=== PATIENT | female | born 1990 | race Caucasian/White ===

== ENCOUNTER 2019-05-19 18:30 | Emergency (ER) | payer BC, SELFPAY ==
[2019-05-19] VITALS (31 sets, daily range): BP systolic 106–135; BP diastolic 52–90; PULSE 57–95; RESP 11–23; TEMP 37.1; O2SAT 96–100
--- NOTE | 2019-05-19 19:22 | ED.GENADUL_ITS ---
Discharge Plan Discharge Details Chief Complaint: Dizzy/Sync Primary Care Provider: Angelina Chris ED Provider: Prema Marcano Home Meds and New Rx's Prescriptions: No Action acetaminophen [Tylenol] 325 MG tablet 325 - 650 mg PO PRN RF: 0 mirtazapine 7.5 MG tablet 15 mg PO HS RF: 0 esomeprazole magnesium [Nexium] 40 mg Capsule,Delayed Release(Dr/Ec) 40 mg PO DAILY RF: 0 cholecalciferol (vitamin D3) [Vitamin D3] 400 unit Tablet,Chewable 400 unit PO DAILY RF: 0 lorazepam [Ativan] 0.5 mg Tablet 0.5 mg PO BID PRNRF: 0 Medical Decision Making April Chavira is a 28-year-old woman with a history of GERD, anxiety, vertigo, migraines who presented to the emergency department with episode of lightheadedness accompanied by nausea and palpitations while sitting in her car in the setting of being currently treated with antibiotics as an outpatient for pneumonia. On exam patient is well and nontoxic appearing. Benign cardiac exam. Pulmonary exam shows bilateral wheeze in the lower lobes that resolved after coughing. Nonfocal neuro exam. Concern for arrhythmia versus dehydration versus metabolic/lyte derangement versus other. Doubt PE, ACS. Exam/history is not consistent with CVA, meningitis, sepsis, acute aortic pathology. Plan for EKG, chest x-ray, screening labs, IV fluid hydration, telemetry. Will monitor and reassess. Medical Records Medical records reviewed: Yes I reviewed the patient's medical records. Imaging Data Radiologic Study: Attestation: I personally reviewed and interpreted this imaging study as follows: Radiologist's impression: EXAM: XR Chest, 2 Views EXAM DATE/TIME: 05/19/2019 7:17 PM CLINICAL HISTORY: 28 years old, female; Other: Dizzy, weak, nausea; Patient HX: Near syncope episode, weak, dizzy, nausea, recent pneumonia TECHNIQUE: Imaging protocol: XR of the chest, 2 views. COMPARISON: CR CHEST 2 VIEWS PA,LAT 07/22/2017 11:38 PM FINDINGS: Lungs: Unremarkable. No consolidation. Pleural space: Unremarkable. No pleural effusion. No pneumothorax. Heart/Mediastinum: Unremarkable. No cardiomegaly. Bones/joints: Unremarkable. IMPRESSION: No acute findings. Lab Data Lab results reviewed: Yes I reviewed the patient's lab results. Laboratory Tests Range/Units 05/19/19 05/19/19 05/19/19 19:25 19:30 19:30 WBC (4.4-10.8) k/cumm 9.28 RBC (4.00-5.20) m/cumm 4.59 Hgb (12.0-15.5) g/dL 13.4 Hct (36.0-46.0) % 38.6 MCV (80-95) fL 84.1 MCH (27.0-33.0) pg 29.2 MCHC (32.0-36.0) g/dL 34.7 RDW (11.7-14.6) % 13.3 Plt Count (130-400) x1000/uL 396 MPV (8.0-11.0) fL 10.0 Immature Gran % 0.1 Neutrophils % 56.2 Lymphocytes % 35.0 Monocytes % 5.8 Eosinophils % 2.4 Basophils % 0.5 Absolute Neutrophils (1.2-6.7) k/cumm 5.21 Absolute Lymphocytes (1.2-3.4) k/cumm 3.25 Absolute Monocytes (0.11-0.7) k/cumm 0.54 Absolute Eosinophils (0.0-0.7) k/cumm 0.22 Absolute Basophils (0.0-0.2) k/cumm 0.05 D-Dimer (<500) ng/mlFEU Sodium (136-145) mmol/L 142 Potassium (3.5-5.1) mmol/L 3.5 Chloride (98-107) mmol/L 105 Carbon Dioxide (21.0-32.0) mmol/L 25.3 Anion Gap (3-11) mmol/L 11.7 H BUN (7-18) mg/dL 7 Creatinine (0.55-1.02) mg/dL 0.74 Estimated GFR/1.73 m2 (mL/min/1.73m2) >= 60.00 Glucose (70-100) mg/dL 89 Calcium (8.5-10.1) mg/dL 9.4 Total Bilirubin (0.2-1.0) mg/dL 0.3 AST (15-37) U/L 10 L ALT (12-78) U/L 27 Alkaline Phosphatase (46-116) U/L 79 Troponin I (0.00-0.06) ng/mL Total Protein (6.4-8.2) g/dL 7.3 Albumin (3.4-5.0) g/dL 4.0 TSH (0.358-3.74) uIU/mL 1.48 Urine Color (Yellow) Yellow Urine Clarity (Clear) Clear Urine pH (5-8) 7.0 Ur Specific [place] (1.005-1.025) 1.010 Urine Protein (Negative) mg/dL Negative Urine Ketones (Negative) mg/dL Negative Urine Blood (Negative) Large H Urine Nitrite (Negative) Negative Urine Bilirubin (Negative) Negative Urine Urobilinogen (Up TO 0.2) EU/dL 0.2 Ur Leukocyte Esterase (Negative) Negative Urine RBC (0-2) 5-10 H Urine WBC (0-5) HPF Negative Ur Epithelial Cells (Negative) HPF Rare Urine Crystals (Negative) HPF Negative Urine Bacteria (Negative) HPF Negative Urine Casts (Negative) LPF Negative Urine Mucus (Negative) Negative Urine Other (Negative) Negative Ur Culture Indicated? No Urine Glucose (Negative) mg/dL Negative Range/Units 05/19/19 05/19/19 19:30 19:30 WBC (4.4-10.8) k/cumm RBC (4.00-5.20) m/cumm Hgb (12.0-15.5) g/dL Hct (36.0-46.0) % MCV (80-95) fL MCH (27.0-33.0) pg MCHC (32.0-36.0) g/dL RDW (11.7-14.6) % Plt Count (130-400) x1000/uL MPV (8.0-11.0) fL Immature Gran % Neutrophils % Lymphocytes % Monocytes % Eosinophils % Basophils % Absolute Neutrophils (1.2-6.7) k/cumm Absolute Lymphocytes (1.2-3.4) k/cumm Absolute Monocytes (0.11-0.7) k/cumm Absolute Eosinophils (0.0-0.7) k/cumm Absolute Basophils (0.0-0.2) k/cumm D-Dimer (<500) ng/mlFEU 298 Sodium (136-145) mmol/L Potassium (3.5-5.1) mmol/L Chloride (98-107) mmol/L Carbon Dioxide (21.0-32.0) mmol/L Anion Gap (3-11) mmol/L BUN (7-18) mg/dL Creatinine (0.55-1.02) mg/dL Estimated GFR/1.73 m2 (mL/min/1.73m2) Glucose (70-100) mg/dL Calcium (8.5-10.1) mg/dL Total Bilirubin (0.2-1.0) mg/dL AST (15-37) U/L ALT (12-78) U/L Alkaline Phosphatase (46-116) U/L Troponin I (0.00-0.06) ng/mL < 0.05 Total Protein (6.4-8.2) g/dL Albumin (3.4-5.0) g/dL TSH (0.358-3.74) uIU/mL Urine Color (Yellow) Urine Clarity (Clear) Urine pH (5-8) Ur Specific [place] (1.005-1.025) Urine Protein (Negative) mg/dL Urine Ketones (Negative) mg/dL Urine Blood (Negative) Urine Nitrite (Negative) Urine Bilirubin (Negative) Urine Urobilinogen (Up TO 0.2) EU/dL Ur Leukocyte Esterase (Negative) Urine RBC (0-2) Urine WBC (0-5) HPF Ur Epithelial Cells (Negative) HPF Urine Crystals (Negative) HPF Urine Bacteria (Negative) HPF Urine Casts (Negative) LPF Urine Mucus (Negative) Urine Other (Negative) Ur Culture Indicated? Urine Glucose (Negative) mg/dL ECG Data Attestation: I personally reviewed and interpreted this ECG (s) as follows: Interpretation: Is very EKG shows sinus rhythm at 73 with normal axis, normal intervals, no acute ischemic changes, nondiagnostic EKG HPI General Mode of arrival: ambulatory . Date/Time Provider Initiated Documentation: 05/19/19 19:10 . Limitations to Documentation: no limitations . Information obtained by: patient, RN notes reviewed and old records reviewed . HPI Narrative: April Chavira is a 28 y/o woman with h/o anxiety, GERD, vertigo, migraines presenting to the emergency department with episode of lightheadedness. Patient reports that she developed cough malaise approximately 10 days ago. She was seen as an outpatient on 05/15/2019, was diagnosed clinically with pneumonia, and was started on azithromycin which she has been taking as prescribed. Patient reports that her cough seems somewhat improved since starting medication. Patient reports that she is feeling relatively well in the past few days. She states that she was sitting in her car just prior to arrival looking at her phone, when she had a sudden episode of lightheadedness as if she was going to faint. This was accompanied by palpitations and nausea. Patient reports that that episode lasted approximately 10 minutes. She then had a friend drive her to the emergency department. Patient reports that currently she feels generally somewhat weak but otherwise in her usual state of health. Patient reports that she has had no pain. She reports mild shortness of breath that has been improving since she was diagnosed with pneumonia. No vomiting, no diarrhea, no numbness, no weakness the extremities, no rash. She does note intermittent tingling of her left arm yesterday, nonexertional, non- positional, not currently occurring, which she associates with sleeping on her arm funny. No recent travel. No history of blood clots. Related Data Home Medications Medication Instructions Recorded Confirmed acetaminophen [Tylenol] 325 - 650 mg PO PRN tab-cap 01/26/15 05/19/19 cholecalciferol (vitamin D3) 400 unit PO DAILY 05/19/19 05/19/19 [Vitamin D3] esomeprazole magnesium [Nexium] 40 mg PO DAILY 05/19/19 05/19/19 lorazepam [Ativan] 0.5 mg PO BID PRN 05/19/19 05/19/19 mirtazapine 15 mg PO HS 05/19/19 05/19/19 Allergies Allergy/AdvReac Type Severity Reaction Status Date / Time gabapentin Allergy Severe FELT LIKE Unverified 05/19/19 18:41 SHE COULDN'T BREATH, OUT OF IT sertraline HCl [From Zoloft] AdvReac Intermediate vomiting/sh Unverified 07/30 18:41 aky amitriptyline AdvReac Unverified 05/19/19 18:41 General Stated Complaint: Dizzy/Sync AMERICO: 3 Review of Systems Review of Systems Constitutional: denies fevers Eyes: denies eye pain ENT: denies facial pain, dental pain, sore throat Cardiovascular: denies chest pain, edema, reports lightheadedness and palpitations Respiratory: Reports mild SOB and cough now improving GI: denies abdominal pain, vomiting, diarrhea, reports nausea now resolved : denies flank pain MSK: denies back pain, neck pain, arthralgias, myalgias Skin: denies rash Neuro: denies headaches, numbness, weakness, reports some mild tingling of left arm yesterday now resolved PFSH Medical History GERD (gastroesophageal reflux disease) Surgical History EGD - MAC (09/02/15) Tooth extraction Family History Mother Stomach cancer H/O oophorectomy H/O thyroidectomy Father Myocardial infarction Seizure disorder Grandfather Diabetes Grandmother Diabetes Stroke Maternal Aunt Seizure disorder Maternal Uncle No problems noted. Grandfather CHF (congestive heart failure) Gynecologic cancer COPD (chronic obstructive pulmonary disease) Grandmother Diabetes Essential hypertension Personal history of malignant neoplasm Maternal Uncle No problems noted. Maternal Aunt No problems noted. Sister Petit mal seizure status Asthma Brother Asthma Social History Smoking/Tobacco Use Status: Current every day Tobacco Type: cigarettes Drug use: Occasionally Substance use type: does not use Do you feel safe in your relationship?: Yes Exam Narrative Exam Narrative: Constitutional: well and [id number], pleasant, conversing normally HENT: head atraumatic/normocephalic/normal inspection, mucous membranes moist Eyes: conjunctiva normal, sclera normal, pupils 3mm b/l Neck: no stridor, normal ROM, trachea midline Chest: normal inspection Resp: normal work of breathing, lungs with expiratory wheeze bilateral lower lobes that clears with coughing, otherwise clear to auscultation Cardio: normal rate, normal rhythm, no murmur appreciated Back: normal inspection, no rash Skin: warm, dry, normal color, no rash Neuro: alert, not altered, grossly non-focal, normal tone Ext: no edema, no posterior calf tenderness to palpation Psych: normal mood, normal affect, normal behavior Course Vital Signs Temperature 37.1 C 05/19/19 18:37 Pulse 95 H 05/19/19 18:37 Respiratory Rate 16 05/19/19 18:37 Blood Pressure 135/75 05/19/19 18:37 Pulse Oximetry 99 05/19/19 18:37 Temperature 37.1 C 05/19/19 18:37 Temperature Source Skin 05/19/19 18:37 Pulse 95 H 05/19/19 18:37 Respiratory Rate 16 05/19/19 18:55 Respiratory Effort Non-Labored 05/19/19 18:55 Respiratory Depth Normal 05/19/19 18:55 Respiratory Pattern Normal 05/19/19 18:55 Blood Pressure 135/75 05/19/19 18:37 Blood Pressure Position Sitting 05/19/19 18:37 Pulse Oximetry 99 05/19/19 18:37 Oxygen Delivery Method Room Air 05/19/19 18:37 Oxygen Flow Rate 0 05/19/19 18:37 Pain Level 0 05/19/19 18:37 Sign Out Sign Out Data: Sign Out Comment: Patient signed out to Dr. Tran at time of shift change with repeat troponin, reassessment pending, anticipate discharge to home with placement of event monitor tomorrow as event monitor is not available at this time given time of day. Last updated by Prema Marcano MD at 05/19/19 20:46
[2019-05-19 19:30] LABS: Bilirubin Negative (Negative); Blood Large (Negative); Clarity Clear (Clear); Glucose Negative (Negative); Ketones Negative (Negative); Leukocyte Esterase Negative (Negative); Nitrite Negative (Negative); Urobilinogen 0.2 EU/dL (Up TO 0.2)
[2019-05-19] MEDS: Normal Saline Flush 10 ML SYR IVP (19:30)
[2019-05-19] MEDS: Normal Saline 1,000 ML 1000 ML IV (19:40)
[2019-05-19 19:43] LABS: WBC Negative HPF (0-5)
[2019-05-19 19:44] LABS: Bacteria Negative HPF (Negative); C & S Indicated? No; Casts Negative LPF (Negative); Crystals Negative HPF (Negative); Epithelial Cells Rare HPF (Negative); Mucus Negative (Negative); Other Cells Negative (Negative)
--- NOTE | 2019-05-19 19:50 | DI.RAD_ITS ---
SYMPTOM/DIAGNOSIS: PRE SYNCOPE, H/O PNEUMONIA, NAUSEA, DIZZY PA AND LATERAL CHEST: The heart is normal in size. The lungs are clear. The mediastinal structures and pleura appear intact. CONCLUSION: Normal chest.
[2019-05-19 19:57] LABS: Abs Immature Grans 0.01 k/cumm (0.0-0.09); Absolute Basophil Count 0.05 k/cumm (0.0-0.2); Absolute Eosinophil Count 0.22 k/cumm (0.0-0.7); Absolute Lymphocyte Count 3.25 k/cumm (1.2-3.4); Absolute Monocyte Count 0.54 k/cumm (0.11-0.7); Absolute Neutrophil Count 5.21 k/cumm (1.2-6.7); Basophils % 0.5; Eosinophils % 2.4; HCT 38.6 % (36.0-46.0); HGB 13.4 g/dL (12.0-15.5); Immature Grans % 0.1; Mean Corp. HGB Concentration 34.7 g/dL (32.0-36.0); Mean Corpuscular Hemoglobin 29.2 pg (27.0-33.0); Mean Corpuscular Volume 84.1 fL (80-95); Monocytes % 5.8; Neutrophils % 56.2; Platelet Count 396 x1000/uL (130-400); RBC 4.59 m/cumm (4.00-5.20); RBC Distribution Width 13.3 % (11.7-14.6); White Blood Cell Count 9.28 k/cumm (4.4-10.8)
[2019-05-19 20:07] LABS: Troponin I < 0.05 ng/mL (0.00-0.06)
[2019-05-19 20:10] LABS: ALT 27 U/L (12-78); AST 10 U/L (15-37); Alkaline Phosphatase 79 U/L (46-116); Anion Gap 11.7 mmol/L (3-11); BUN 7 mg/dL (7-18); Bilirubin, Total 0.3 mg/dL (0.2-1.0); CO2 25.3 mmol/L (21.0-32.0); CREATININE 0.74 mg/dL (0.55-1.02); Calcium 9.4 mg/dL (8.5-10.1); Chloride 105 mmol/L (98-107); Glucose 89 mg/dL (70-100); Potassium 3.5 mmol/L (3.5-5.1); Sodium 142 mmol/L (136-145); TSH 1.48 uIU/mL (0.358-3.74); Total Protein 7.3 g/dL (6.4-8.2)
--- NOTE | 2019-05-19 20:17 | DI.VRAD_ITS ---
EXAM: XR Chest, 2 Views EXAM DATE/TIME: 05/19/2019 7:17 PM CLINICAL HISTORY: 28 years old, female; Other: Dizzy, weak, nausea; Patient HX: Near syncope episode, weak, dizzy, nausea, recent pneumonia TECHNIQUE: Imaging protocol: XR of the chest, 2 views. COMPARISON: CR CHEST 2 VIEWS PA,LAT 07/22/2017 11:38 PM FINDINGS: Lungs: Unremarkable. No consolidation. Pleural space: Unremarkable. No pleural effusion. No pneumothorax. Heart/Mediastinum: Unremarkable. No cardiomegaly. Bones/joints: Unremarkable. IMPRESSION: No acute findings. Dictated and Authenticated by: Marty Stallings MD. Ordering:CHRISTIANE Lloyd MD
[2019-05-19 20:18] LABS: D-Dimer 298 ng/mlFEU (<500)
[2019-05-19 22:55] LABS: Troponin I < 0.05 ng/mL (0.00-0.06)
== END 2019-05-19 23:16 | disposition home or self-care (01) ==
PROVIDERS: Student in an Organized Health Care Education/Training Program; Emergency Provider Student in an Organized Health Care Education/Training Program; PCP Nurse Practitioner Family
DX: R00.2 Palpitations (principal); R11.0 Nausea
CPT/HCPCS: 36415; 80053; 93005; 96360; 99285; 71046; 81003; 81015; 84443; 84484; 85025; 85379; 93010

== ENCOUNTER 2021-08-30 00:08 | Emergency (ER) | payer SELFPAY ==
[2021-08-30 00:14] VITALS: BP 137/79; PULSE 109; RESP 18; TEMP 36.1; O2SAT 99
--- NOTE | 2021-08-30 00:24 | ED.GENADUL_ITS ---
Discharge Plan Disposition Patient Disposition: HOME Condition: Good Discharge Details Clinical Impression: Hives Primary Care Provider: Cherri Killian ED Provider: Rm Tran Home Meds and New Rx's Prescriptions: New prednisone 50 MG tablet 50 mg PO DAILY Qty: 5 RF: 0 Continued acetaminophen [Tylenol] 325 MG tablet 325 - 650 mg PO PRN RF: 0 mirtazapine 7.5 MG tablet 15 mg PO HS RF: 0 esomeprazole magnesium [Nexium] 40 mg Capsule,Delayed Release(Dr/Ec) 40 mg PO DAILY RF: 0 Discharge Instructions Instructions: Urticaria (ED) Additional Instructions: At this time you have mild hives. This is likely brought about by your hei ghtened immunoreactivity state immediately after having a COVID-19 infection. Please continue taking 25 mg of Benadryl every 6 hours, and also take 10 mg of [id number] loratadine once daily. Please continue to monitor your symptoms closely, and if you notice no improvement and/or worsening of your rash over the neck 36 to 48 hours, please take the steroid as directed. If you notice any worsening of your symptoms, or any new symptoms such as vomiting, diarrhea, fever, chills, shortness of breath, chest pain, numbness, weakness, or fainting , please return immediately to the emergency department for reevaluation. Please follow up with your primary care provider as soon as possible for reassessment and reevaluation. As always, it was a pleasure participating in your medical care today. Referrals: Cherri Killian, RACHNA [Primary Care Provider] - Medical Decision Making 30-year-old female with no significant past medical history who just finished her quarantine for coronavirus, presents today for evaluation of hives. Patient states that starting this morning she has noticed a small amount of hives over her arms legs and torso. She is taking Benadryl and calamine, and noticed no significant improvement. She states that this is not the worst that it is been in the past. She denies any nausea, vomiting, diarrhea, difficulty breathing or mouth swelling. She is uncertain as to the aggravating agent that brought this on this time. No other complaints at this time. No other modifying factors Physical exam demonstrates a few scattered intermittent hives. Very minimal in nature. No oral lesions. Symptoms are likely secondary to a mild allergic reaction. No evidence of anaphylaxis whatsoever. Will recommend loratadine and Benadryl to could be continued. As the patient has just gotten over a COVID-19 infection high and slightly hesitant to start a steroid burst for other concerning potential opportunistic infections. Because of her recent COVID-19 infection we will hold off on prednisone, recommend continued Benadryl and the ranitidine for the next 36 to 48 hours. If she noticed no significant improvement or worsening of her symptoms and she is to start the steroid burst. Discussed red flags which to return. No current clinical evidence of staph scalded skin syndrome, erythema multiforme, erythema migrans, toxic epidermal necrolysis, Encarnacion-Samuel syndrome, Kawasaki-like rash, meningococcemia, pemphigus vulgaris, or necrotizing fasciitis.I have extensively reviewed the treatment plan and discharge instructions with the patient. I have addressed all patient concerns at this time. The patient was made aware of what symptoms to monitor for that would warrant a return to the emergency department. Discussed the plan with the patient, they demonstrate verbal understanding and agreement with our assessment and plan at this time. The documentation in this chart was dictated using [employer] dictation software. Please excuse any dictation errors. HPI General Date/Time Provider Initiated Documentation: 08/30/21 00:13 . HPI Narrative: 30-year-old female with no significant past medical history who just finished her quarantine for coronavirus, presents today for evaluation of hives. Patient states that starting this morning she has noticed a small amount of hives over her arms legs and torso. She is taking Benadryl and calamine, and noticed no significant improvement. She states that this is not the worst that it is been in the past. She denies any nausea, vomiting, diarrhea, difficulty breathing or mouth swelling. She is uncertain as to the aggravating agent that brought this on this time. No other complaints at this time. No other modifying factors Related Data Home Medications Medication Instructions Recorded Confirmed acetaminophen [Tylenol] 325 - 650 mg PO PRN tab-cap 01/26/15 08/30/21 esomeprazole magnesium [Nexium] 40 mg PO DAILY 05/19/19 08/30/21 mirtazapine 15 mg PO HS 05/19/19 08/30/21 prednisone 50 mg PO DAILY #5 tab 08/30/21 Previous Rx's Medication Instructions Recorded prednisone 50 mg PO DAILY #5 tab 08/30/21 Allergies Allergy/AdvReac Type Severity Reaction Status Date / Time gabapentin Allergy Severe FELT LIKE Unverified 08/30/21 00:23 SHE COULDN'T BREATH, OUT OF IT sertraline HCl [From Zoloft] AdvReac Intermediate vomiting/sh Unverified 08/30/21 00:23 aky amitriptyline AdvReac Unverified 08/30/21 00:23 General Stated Complaint: RashLesion AMERICO: 4 Review of Systems All systems reviewed & are unremarkable except as noted in HPI and below PFSH Medical History GERD (gastroesophageal reflux disease) Surgical History EGD - MAC (09/02/15) DR.TERRY VICENTE Tooth extraction WISDOM TEETH Family History Mother Stomach cancer H/O oophorectomy H/O thyroidectomy Father Myocardial infarction Seizure disorder Grandfather Diabetes Grandmother Diabetes Stroke Maternal Aunt Seizure disorder Maternal Uncle No problems noted. Grandfather CHF (congestive heart failure) Gynecologic cancer COPD (chronic obstructive pulmonary disease) Grandmother Diabetes Essential hypertension Personal history of malignant neoplasm Maternal Uncle No problems noted. Maternal Aunt No problems noted. Sister Petit mal seizure status X 1 Asthma X 1 Brother Asthma X 1 Social History Smoking/Tobacco Use Status: Current every day Tobacco Type: cigarettes Smoking risk assessment performed?: Yes Drug use: Occasionally Substance use type: does not use Do you feel safe at home: Yes Do you feel safe in your relationship?: Yes Exam Narrative Exam Narrative: 1.Const: Well-nourished, Well-developed, appearing stated age 2.Eyes: PERRL, no conjunctival injection, and symmetrical lids. 3.ENT: Atraumatic external nose and ears. Moist MM. Neck: Symmetric, trachea midline, No thyromegaly. 4.CVS: +S1/S2, No murmurs or gallops. Peripheral pulses 2+ and equal in all extremities. Brisk capillary refill in all extremities. 5.RESP: Unlabored respiratory effort. Clear to auscultation bilaterally. No wheezes rales or rhonchi 6.GI: Soft, Nontender/Nondistended, No hepatosplenomegaly. No guarding or rebound. 7.MSK: Normocephalic/Atraumatic, Extremities w/o deformity or ttp No cyanosis or clubbing, Normal movement of all extremities 8.Skin: Warm, Dry. Physical exam demonstrates scattered intermittent hives on the patient's arms legs and chest. Total number likely includes 10-12. they Are all small and blanching. Negative Nikolsky sign. No large vesicles or bulla. No palpable purpura. No oral lesions. No mucosal lesions. No evidence of severe cellulitis. No evidence of vaccine preventable rash. 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 Sensation grossly intact, no focal neurologic deficits. 10.Psych: (AAO) x3. Appropriate mood and affect Course Vital Signs Vital signs: Vital Signs Temperature 36.1 C L 08/30/21 00:14 Pulse 109 H 08/30/21 00:14 Respiratory Rate 18 08/30/21 00:14 Blood Pressure 137/79 08/30/21 00:14 Pulse Oximetry 99 08/30/21 00:14 Temperature 36.1 C L 08/30/21 00:14 Temperature Source Temporal Artery Scan 08/30/21 00:14 Pulse 109 H 08/30/21 00:14 Respiratory Rate 18 08/30/21 00:14 Respiratory Effort Non-Labored 08/30/21 00:21 Blood Pressure 137/79 08/30/21 00:14 Blood Pressure Position Sitting 08/30/21 00:14 Pulse Oximetry 99 08/30/21 00:14 Oxygen Delivery Method Room Air 08/30/21 00:14 Oxygen Flow Rate 0 08/30/21 00:14 Pain Level 0 08/30/21 00:14
== END 2021-08-30 00:35 | disposition home or self-care (01) ==
PROVIDERS: Emergency Provider Student in an Organized Health Care Education/Training Program; PCP Nurse Practitioner Family
DX: L50.0 Allergic urticaria (principal); U09.9 Post COVID-19 condition, unspecified
CPT/HCPCS: 99283

== ENCOUNTER 2022-05-11 17:41 | Observation (INO) | payer BC, SELFPAY ==
[2022-05-11 17:56] VITALS: BP 129/80; PULSE 100; RESP 16; O2SAT 99
--- NOTE | 2022-05-11 18:00 | DI.CT_ITS ---
Exam(s) CT ABDOMEN PELVIS WO EXAM: CT ABDOMEN PELVIS WO CLINICAL HISTORY: RLQ and RUQ pain. TECHNIQUE: Imaging Protocol: Axial computed tomography images with coronal and sagittal reformatted images were created and reviewed CONTRAST MATERIAL: Intravenous: none Oral: None COMPARISON: No exams were available for comparison FINDINGS: VISUALIZED LUNG BASES: No nodules nor pleural effusions evident. ABDOMEN: There is no ascites in the upper abdomen.. LIVER: There are no obvious focal hepatic lesions evident of this noninfused study. GALLBLADDER/BILIARY: No obvious gallbladder pathology. CBD is not dilated. PANCREAS: No evidence of pancreatic mass nor dilatation of the pancreatic duct. SPLEEN: Spleen is not enlarged. No obvious intrasplenic lesions. ADRENALS: There are no significant adrenal masses. KIDNEYS:No cysts evident. No solid renal masses. No calculi nor hydronephrosis. . ABDOMINAL AORTA: Abdominal aorta is not enlarged. LYMPH NODES: There is no retroperitoneal nor paraaortic adenopathy. ABDOMINAL WALL: No evidence of significant anterior abdominal wall nor inguinal hernia. GI: See below. PELVIS: LYMPH NODES: There is no intrapelvic nor inguinal adenopathy. GI: There appendicoliths and the appendix is swollen to 11-12 millimeters with periappendiceal streak ing. Consistent with appendicitis.No evidence of sigmoid diverticulitis.There is small amount of flu id in the dependent aspect of the pelvis, more so on the right and most probably related to the appen dicitis. URINARY BLADDER: No calculi nor obvious masses evident REPRODUCTIVE: Uterus and adnexal regions unremarkable. Air column in the vagina is most probably a t ampon. OSSEOUS: No significant osseous lesions. IMPRESSION: 1. Findings are consistent with severe acute appendicitis. No free air nor distinct abscess at this time RADIATION DOSE DELIVERED: 712.56mGy.cm Total DLP DATA REPOSITORY: All CT scans at this facility are submitted to the National Radiology Data Registry (NRDR) Dose Index Registry (DIR) with the [employer] (A[employer]). RADIATION OPTIMIZATION: All CT scans at this facility use at least one of these dose optimization te chniques: automated exposure control; mA and/or kV adjustment per patient size (includes targeted exa ms where dose is matched to clinical indication); or iterative reconstruction.
[2022-05-11 18:20] LABS: Bilirubin Negative (Negative); Blood Trace-intact (Negative); Clarity Clear (Clear); Glucose Negative (Negative); Ketones Trace mg/dL (Negative); Leukocyte Esterase Negative (Negative); Nitrite Negative (Negative); Specific Gravity 1.015 (1.005-1.025); Urobilinogen 0.2 EU/dL (Up TO 0.2); pH 7.5 (5-8)
[2022-05-11 18:26] LABS: Bacteria Negative HPF (Negative); C & S Indicated? No; Casts Negative LPF (Negative); Crystals Negative HPF (Negative); Epithelial Cells Few HPF (Negative); Mucus Negative (Negative); RBC 0-2 HPF (0-2); WBC 0-2 HPF (0-5)
[2022-05-11] MEDS: FAMOTIDINE 20 MG in Normal Saline 100 ML 400 MG IVPB (19:00)
--- NOTE | 2022-05-11 19:11 | DI.VRAD_ITS ---
PROCEDURE INFORMATION: Exam: CT Abdomen And Pelvis Without Contrast Exam date and time: 05/11/2022 6:32 PM Age: 31 years old Clinical indication: Abdominal pain; Localized; Right lower quadrant (rlq); Additional info: Rlq and ruq pain TECHNIQUE: Imaging protocol: Computed tomography of the abdomen and pelvis without contrast. Radiation optimization: All CT scans at this facility use at least one of these dose optimization techniques: automated exposure control; mA and/or kV adjustment per patient size (includes targeted exams where dose is matched to clinical indication); or iterative reconstruction. COMPARISON: CR ABD FLAT UPRIGHT PA CHEST 08/16/2015 11:38 AM FINDINGS: Liver: Normal. No mass. Gallbladder and bile ducts: Normal. No calcified stones. No ductal dilation. Pancreas: Normal. No ductal dilation. Spleen: Normal. No splenomegaly. Adrenal glands: Normal. No mass. Kidneys and ureters: Normal. No hydronephrosis. Stomach and bowel: Gas in the distal esophagus which can be seen with reflux. There is mild gastric wall prominence which can be seen secondary to underdistention or gastritis. No obstruction. Portions of the stool have a hyperdense appearance. This could be seen secondary to something the patient ate or inspissated stool. However, findings should be correlated with any concern for blood products. Appendix: Appendicoliths are seen. Portions of the appendix measure dilated, up to 1.1 cm in the tip region (coronal image 36). There is periappendiceal fat stranding and fluid. Findings are most consistent with acute appendicitis in the appropriate clinical setting. Intraperitoneal space: Moderate amount of free fluid in the pelvis. No free air. Vasculature: Unremarkable. No abdominal aortic aneurysm. Lymph nodes: Unremarkable. No enlarged lymph nodes. Urinary bladder: Urinary bladder wall prominence. This can be seen with infection or underdistention. Reproductive: A probable tampon is noted in the vagina. Bones/joints: Scoliosis. Mild retrolisthesis of L5 on S1. Disc bulges at multiple levels. No acute fracture. Soft tissues: Unremarkable. IMPRESSION: 1. Findings most consistent with acute appendicitis. See discussion above. Per the ordering provider, the patient is having significant right lower quadrant pain. 2. Moderate amount of free fluid in the pelvis. 3. Urinary bladder wall prominence. This can be seen with infection or underdistention. 4. Probable tampon is noted in the vagina. 5. Disc bulges at multiple levels. If the patient is symptomatic, MRI could be considered. 6. See above for findings related to the distal esophagus, stomach, and colon. Other findings/details as above. THIS REPORT CONTAINS FINDINGS THAT MAY BE CRITICAL TO PATIENT CARE. The findings were verbally communicated via telephone conference with Ju Tran at 7:07 PM EDT on 05/11/2022. The findings were acknowledged and understood. Dictated and Authenticated by: Johana Oliveira MD. Ordering:TARA Dodd MD
[2022-05-11] MEDS: Lactated Ringers 1,000 ML 1000 ML IV (19:19)
[2022-05-11 19:21] LABS: Abs Immature Grans 0.06 10^3/uL (0.0-0.06); Absolute Eosinophil Count 0.03 10^3/uL (0.0-0.7); Absolute Lymphocyte Count 2.06 10^3/uL (1.2-3.4); Basophils % 0.3; Eosinophils % 0.2; HCT 36.1 % (36.0-46.0); HGB 12.1 g/dL (11.2-15.7); Immature Grans % 0.3; Lymphocytes % 11.9; MCH 26.8 pg (27.0-33.0); MCHC 33.5 % (32.0-36.0); MCV 80 fL (80-95); MPV 10.5 fL (8.0-11.0); Monocytes % 4.9; Neutrophils % 82.4; Platelet Count 409 10^3/uL (130-400); RBC 4.51 10^6/uL (3.93-5.22); RDW 14.9 % (11.7-14.6); RDW-SD 43.8 fL
[2022-05-11 19:22] LABS: Absolute Basophil Count 0.05 10^3/uL (0.0-0.2); Absolute Monocyte Count 0.85 10^3/uL (0.1-0.8); Absolute Neutrophil Count 14.26 10^3/uL (1.2-6.7)
--- NOTE | 2022-05-11 19:30 | RT.EKG_ITS ---
APPROVED REPORT Exam: Resting ECG Reason for Exam: andrew Patient Location: E HR:89 bpm ECG Measurements Heart Rate 89 AXIS MO 131 P 52 QRSd 79 QRS 47 QT 332 T 54 QTc 404 Conclusion Sinus rhythm...normal P axis, V-rate 60- 99 Physician: no stemi, stable, no significant st elevation or depressions
[2022-05-11 19:34] LABS: ALT 18 U/L (14-59); AST 12 U/L (15-37); Alkaline Phosphatase 73 U/L (46-116); Anion Gap 9.3 mmol/L (3-11); BUN 11 mg/dL (7-18); Bilirubin, Total 0.5 mg/dL (0.2-1.0); CO2 26.7 mmol/L (21.0-32.0); CREATININE 0.8 mg/dL (0.55-1.02); Calcium 9.1 mg/dL (8.5-10.1); Chloride 102 mmol/L (98-107); Glucose 85 mg/dL (74-106); Lipase 94 U/L (73-393); Magnesium 1.3 mg/dL (1.8-2.4); Potassium 3.6 mmol/L (3.5-5.1); Sodium 138 mmol/L (136-145); Total Protein 7.5 g/dL (6.4-8.2)
[2022-05-11] MEDS: PIPERACILLIN/TAZO 3.375 GM in Normal Saline 50 ML IVPB (19:45)
[2022-05-11 19:48] LABS: Source Nasal/Nares
[2022-05-11] MEDS: ACETAMINOPHEN 1,000 MG/100 ML BTL 400 MG IVPB (20:46)
[2022-05-11] MEDS: MAGNESIUM SULFATE 2 GM/50 ML BAG IVPB ×2 (20:50→22:37)
[2022-05-11 21:01] VITALS: BP 122/76; PULSE 90; RESP 18; TEMP 37.1; O2SAT 98
[2022-05-11 21:09] VITALS: BP 114/68; PULSE 88; RESP 16; TEMP 36.7; O2SAT 99
--- NOTE | 2022-05-11 21:12 | W.PM.HP.N ---
Date of service: 05/12/22 Time of Service: 09:30 Assessment and Plan Assessment and plan (1) GERD (gastroesophageal reflux disease): Assessment and plan: protonix (2) Acute appendicitis: Status: Acute Assessment and plan: dottie hall in am supportive care Mag bolus risks of surgery: Bleeding, infection, pneumonia, blood clots, complications of anesthesia, abscess, hernia, damage to bowel, bladder, blood vessels, open procedure, and other on 4 told complications. History of Present Illness Narrative: Patient presented emergency room a and nausea vomiting. She had a scan which was compatible with a hiatus. I did personally review her CT. White count is 17. She was kept overnight and I antibiotics is here today for appendectomy. She is a smoker. She has had an EGD before for reflux. She is on Nexium and mirtazapine. She has never had any abdominal surgery before. She has had no problems with anesthesia in the past. She has multiple piercings and tattoos. Allergies reviewed. ON LICENSE OF [facility] All Active Problems (Updated 05/11/22 @ 22:35 by PRESTON Gil) Hypomagnesemia (Acute) Acute appendicitis (Acute) Hives (Acute) Medical History GERD (gastroesophageal reflux disease) Surgical History EGD - MAC (09/02/15) DR.TERRY VICENTE Tooth extraction WISDOM TEETH Family History Mother Stomach cancer H/O oophorectomy H/O thyroidectomy Father Myocardial infarction Seizure disorder Grandfather Diabetes Grandmother Diabetes Stroke Maternal Aunt Seizure disorder Maternal Uncle No problems noted. Grandfather CHF (congestive heart failure) Gynecologic cancer COPD (chronic obstructive pulmonary disease) Grandmother Diabetes Essential hypertension Personal history of malignant neoplasm Maternal Uncle No problems noted. Maternal Aunt No problems noted. Sister Petit mal seizure status X 1 Asthma X 1 Brother Asthma X 1 Social History Smoking/Tobacco Use Status: Current every day Tobacco Type: cigarettes Smoking risk assessment performed?: Yes Drug use: Occasionally Substance use type: does not use Do you feel safe at home: Yes Do you feel safe in your relationship?: Yes Meds Allergies and Home Medications Allergies Allergy/AdvReac Type Severity Reaction Status Date / Time gabapentin Allergy Severe FELT LIKE Unverified 05/11/22 17:58 SHE COULDN'T BREATH, OUT OF IT sertraline HCl [From Zoloft] AdvReac Intermediate vomiting/sh Unverified 05/11/22 17:58 aky amitriptyline AdvReac Unverified 05/11/22 17:58 Home Medications Medication Instructions Recorded Confirmed Type acetaminophen 325 mg tablet 325 - 650 mg PO PRN 01/26/15 05/11/22 History (Tylenol) esomeprazole magnesium 40 mg 40 mg PO DAILY 05/19/19 05/11/22 History capsule,delayed release (Nexium) mirtazapine 7.5 mg tablet 15 mg PO HS 05/19/19 05/11/22 History Exam Narrative Exam Narrative: PHYSICAL EXAM GENERAL APPEARANCE: Alert, healthy appearance, oriented, in no acute distress SKIN: No rashes.? No breakdown HYDRATION: Well hydrated HEAD, EYES, EARS, NECK, THROAT: Head is normocephalic, pupils equal, round, reactive to light and accommodation, ocular movement intact, sclera clear and no jaundice. ?Dentition intact. No sore throat.? No jaw pain. Nose piercing NECK: Supple, Trachea midline. No JVD. LUNGS: normal respiration/nl chest excursion. ?Clear to auscultation B/l no R/R/W ?HEART: Regular rate and rhythm, EXTREMITY: No edema or cyanosis? no leg pain, redness, swelling.? No IV infiltration ABDOMEN: , no hernias. Normal bowel sounds no hernias. Pain at McBurney's point she does have a that was removed. NEURO: no focal neuro deficits. Results Labs Result diagrams: 05/11/22 19:00 05/12/22 06:11 Labs: Laboratory Results - last 24 hr 05/11/22 05/11/22 05/11/22 18:02 19:00 19:00 WBC 17.30 H RBC 4.51 Hgb 12.1 Hct 36.1 MCV 80 MCH 26.8 L MCHC 33.5 RDW 14.9 H Plt Count 409 H MPV 10.5 Immature Gran % 0.3 Neutrophils % 82.4 Lymphocytes % 11.9 Monocytes % 4.9 Eosinophils % 0.2 Basophils % 0.3 Nucleated RBC % 0.0 Absolute Neutrophils 14.26 H Absolute Lymphocytes 2.06 Absolute Monocytes 0.85 H Absolute Eosinophils 0.03 Absolute Basophils 0.05 Sodium 138 Potassium 3.6 Chloride 102 Carbon Dioxide 26.7 Anion Gap 9.3 BUN 11 Creatinine 0.8 Estimated GFR/1.73 m2 >= 60.00 Glucose 85 Calcium 9.1 Magnesium 1.3 L Total Bilirubin 0.5 AST 12 L ALT 18 Alkaline Phosphatase 73 Total Protein 7.5 Albumin 4.0 Lipase 94 Urine Color Yellow Urine Clarity Clear Urine pH 7.5 Ur Specific [place] 1.015 Urine Protein Negative Urine Ketones Trace H Urine Blood Trace-intact H Urine Nitrite Negative Urine Bilirubin Negative Urine Urobilinogen 0.2 Ur Leukocyte Esterase Negative Urine RBC 0-2 Urine WBC 0-2 Ur Epithelial Cells Few Urine Crystals Negative Urine Bacteria Negative Urine Casts Negative Urine Mucus Negative Ur Culture Indicated? No Urine Glucose Negative COVID-19 Source 05/11/22 19:45 WBC RBC Hgb Hct MCV MCH MCHC RDW Plt Count MPV Immature Gran % Neutrophils % Lymphocytes % Monocytes % Eosinophils % Basophils % Nucleated RBC % Absolute Neutrophils Absolute Lymphocytes Absolute Monocytes Absolute Eosinophils Absolute Basophils Sodium Potassium Chloride Carbon Dioxide Anion Gap BUN Creatinine Estimated GFR/1.73 m2 Glucose Calcium Magnesium Total Bilirubin AST ALT Alkaline Phosphatase Total Protein Albumin Lipase Urine Color Urine Clarity Urine pH Ur Specific [place] Urine Protein Urine Ketones Urine Blood Urine Nitrite Urine Bilirubin Urine Urobilinogen Ur Leukocyte Esterase Urine RBC Urine WBC Ur Epithelial Cells Urine Crystals Urine Bacteria Urine Casts Urine Mucus Ur Culture Indicated? Urine Glucose COVID-19 Source Nasal/Nares Last Vital Signs Temp 37.1 C 05/11/22 21:01 Pulse 90 05/11/22 21:01 Resp 18 05/11/22 21:01 BP 122/76 05/11/22 21:01 Pulse Ox 98 05/11/22 21:01
[2022-05-11 21:15] LABS: COVID-19 PCR Negative (Negative)
[2022-05-11 21:36] VITALS: BP 114/68; PULSE 88; RESP 16; TEMP 36.7; O2SAT 99
--- NOTE | 2022-05-11 22:29 | ED.GENADUL_ITS ---
Discharge Plan Disposition Patient Disposition: HOME Condition: Serious Discharge Details Clinical Impression: Acute appendicitis, Hypomagnesemia Primary Care Provider: Angelina Chris ED Provider: Ju Tran Discharge Data Discharge Date/Time-TO BE ENTERED AT DEPARTURE: 05/11/22 21:20 Medical Decision Making Like she was 17,000, appendicitis on the CT scan Declines any opiate analgesia Does consent to Tylenol Maintaining secretions Hypomagnesemia, 1.3, EKG does not show evidence of QTC prolongation Administered Zosyn empirically Supplemented with IV magnesium, 2 g Case discussed with Dr. Hinojosa, surgery likely tomorrow morning Patient agreeable to plan at this time for admission for surgical intervention in the morning Medical Records Medical records reviewed: Yes I reviewed the patient's medical records. Lab Data Lab results reviewed: Yes I reviewed the patient's lab results. HPI General Date/Time Provider Initiated Documentation: 05/11/22 18:05 . HPI Narrative: Otherwise healthy 31-year-old female with history of chronic intermittent dysphagia presents with report of right lower quadrant pain started earlier today. Denies fever or chills. Denies any nausea or vomiting. States that the pain has been constant since onset. Denies history of similar symptoms in the past. Patient is currently experiencing menses. Pain exacerbated with walking to abdomen. She is on day 2 of her menstrual.. She denies any chance of . She. Diet secondary to this. She has an appointment with them scheduled but denies any difficulty swallowing fluids. Reports globus sensation with certain foods. Related Data Home Medications Medication Instructions Recorded Confirmed acetaminophen 325 mg tablet 325 - 650 mg PO PRN 01/26/15 05/11/22 (Tylenol) esomeprazole magnesium 40 mg 40 mg PO DAILY 05/19/19 05/11/22 capsule,delayed release (Nexium) mirtazapine 7.5 mg tablet 15 mg PO HS 05/19/19 05/11/22 Allergies Allergy/AdvReac Type Severity Reaction Status Date / Time gabapentin Allergy Severe FELT LIKE Unverified 05/11/22 17:58 SHE COULDN'T BREATH, OUT OF IT sertraline HCl [From Zoloft] AdvReac Intermediate vomiting/sh Unverified 05/11/22 17:58 aky amitriptyline AdvReac Unverified 05/11/22 17:58 General Stated Complaint: Abd Prob AMERICO: 3 Review of Systems All systems reviewed & are unremarkable except as noted in HPI and below PFSH All Active Problems (Updated 05/11/22 @ 22:35 by PRESTON Gil) Hypomagnesemia (Acute) Acute appendicitis (Acute) Hives (Acute) Medical History GERD (gastroesophageal reflux disease) Surgical History EGD - MAC (09/02/15) DR.TERRY VICENTE Tooth extraction WISDOM TEETH Family History Mother Stomach cancer H/O oophorectomy H/O thyroidectomy Father Myocardial infarction Seizure disorder Grandfather Diabetes Grandmother Diabetes Stroke Maternal Aunt Seizure disorder Maternal Uncle No problems noted. Grandfather CHF (congestive heart failure) Gynecologic cancer COPD (chronic obstructive pulmonary disease) Grandmother Diabetes Essential hypertension Personal history of malignant neoplasm Maternal Uncle No problems noted. Maternal Aunt No problems noted. Sister Petit mal seizure status X 1 Asthma X 1 Brother Asthma X 1 Social History Smoking/Tobacco Use Status: Current every day Tobacco Type: cigarettes Smoking risk assessment performed?: Yes Drug use: Occasionally Substance use type: does not use Do you feel safe at home: Yes Do you feel safe in your relationship?: Yes Exam Const General: cooperative, comfortable and no acute distress Eyes Pupils: PERRL Resp Effort & Inspection: normal respiratory effort Auscultation: clear to auscultation bilaterally Cardio Rate: regular rate Rhythm: regular rhythm GI Other: Right lower quadrant tenderness Skin General skin exam: no rashes or lesions noted Neuro General: patient alert and patient oriented x3 Extrem Other: distal pulses intact Course Vital Signs Vital signs: Vital Signs Pulse 100 H 05/11/22 17:56 Respiratory Rate 16 05/11/22 17:56 Blood Pressure 129/80 05/11/22 17:56 Pulse Oximetry 99 05/11/22 17:56 Temperature 37.1 C 05/11/22 21:01 Pulse 90 05/11/22 21:01 Pulse Rhythm Regular 05/11/22 21:36 Respiratory Rate 18 05/11/22 21:01 Respiratory Effort Non-Labored 05/11/22 21:36 Respiratory Depth Normal 05/11/22 21:36 Respiratory Pattern Normal 05/11/22 21:36 Blood Pressure 122/76 05/11/22 21:01 Blood Pressure Position Sitting 05/11/22 17:56 Pulse Oximetry 98 05/11/22 21:01 Oxygen Delivery Method Room Air 05/11/22 17:56 Oxygen Flow Rate 0 05/11/22 17:56 Pain Level 2 05/11/22 21:01 Comment 05/11/22 17:56 Lab/Test Results Lab/Test Results: Laboratory Tests Range/Units 05/11/22 05/11/22 05/11/22 18:02 19:00 19:00 WBC (4.4-10.8) 10^3/uL 17.30 H RBC (3.93-5.22) 10^6/uL 4.51 Hgb (11.2-15.7) g/dL 12.1 Hct (36.0-46.0) % 36.1 MCV (80-95) fL 80 MCH (27.0-33.0) pg 26.8 L MCHC (32.0-36.0) % 33.5 RDW (11.7-14.6) % 14.9 H Plt Count (130-400) 10^3/uL 409 H MPV (8.0-11.0) fL 10.5 Immature Gran % 0.3 Neutrophils % 82.4 Lymphocytes % 11.9 Monocytes % 4.9 Eosinophils % 0.2 Basophils % 0.3 Nucleated RBC % (0.0-0.3) % 0.0 Absolute Neutrophils (1.2-6.7) 10^3/uL 14.26 H Absolute Lymphocytes (1.2-3.4) 10^3/uL 2.06 Absolute Monocytes (0.1-0.8) 10^3/uL 0.85 H Absolute Eosinophils (0.0-0.7) 10^3/uL 0.03 Absolute Basophils (0.0-0.2) 10^3/uL 0.05 Sodium (136-145) mmol/L 138 Potassium (3.5-5.1) mmol/L 3.6 Chloride (98-107) mmol/L 102 Carbon Dioxide (21.0-32.0) mmol/L 26.7 Anion Gap (3-11) mmol/L 9.3 BUN (7-18) mg/dL 11 Creatinine (0.55-1.02) mg/dL 0.8 Estimated GFR/1.73 m2 (mL/min/1.73m2) >= 60.00 Glucose (74-106) mg/dL 85 Calcium (8.5-10.1) mg/dL 9.1 Magnesium (1.8-2.4) mg/dL 1.3 L Total Bilirubin (0.2-1.0) mg/dL 0.5 AST (15-37) U/L 12 L ALT (14-59) U/L 18 Alkaline Phosphatase (46-116) U/L 73 Total Protein (6.4-8.2) g/dL 7.5 Albumin (3.4-5.0) g/dL 4.0 Lipase (73-393) U/L 94 Urine Color (Yellow) Yellow Urine Clarity (Clear) Clear Urine pH (5-8) 7.5 Ur Specific [place] (1.005-1.025) 1.015 Urine Protein (Negative) mg/dL Negative Urine Ketones (Negative) mg/dL Trace H Urine Blood (Negative) Trace-intact H Urine Nitrite (Negative) Negative Urine Bilirubin (Negative) Negative Urine Urobilinogen (Up TO 0.2) EU/dL 0.2 Ur Leukocyte Esterase (Negative) Negative Urine RBC (0-2) HPF 0-2 Urine WBC (0-5) HPF 0-2 Ur Epithelial Cells (Negative) HPF Few Urine Crystals (Negative) HPF Negative Urine Bacteria (Negative) HPF Negative Urine Casts (Negative) LPF Negative Urine Mucus (Negative) Negative Ur Culture Indicated? No Urine Glucose (Negative) mg/dL Negative POC- Test(urine) Negative
[2022-05-11] MEDS: Pantoprazole 40 MG VIAL IVP (22:39)
[2022-05-11] MEDS: Normal Saline 1,000 ML 125 ML IV (22:50)
[2022-05-11] MEDS: Normal Saline Flush 10 ML SYR IVP (22:51)
[2022-05-12] VITALS (8 sets, daily range): BP systolic 102–124; BP diastolic 58–74; PULSE 68–96; RESP 14–25; TEMP 36.2–37; O2SAT 96–99; BMI 24.0
[2022-05-12] MEDS: PIPERACILLIN/TAZO 3.375 GM in Normal Saline 50 ML IVPB ×3 (02:08→15:12)
[2022-05-12] MEDS: ACETAMINOPHEN 1,000 MG/100 ML BTL 400 MG IVPB (03:14)
[2022-05-12 06:36] LABS: Anion Gap 6.1 mmol/L (3-11); BUN 11 mg/dL (7-18); CO2 23.9 mmol/L (21.0-32.0); CREATININE 0.7 mg/dL (0.55-1.02); Calcium 8.1 mg/dL (8.5-10.1); Chloride 108 mmol/L (98-107); Glucose 86 mg/dL (74-106); Magnesium 2.6 mg/dL (1.8-2.4); Potassium 3.7 mmol/L (3.5-5.1); Sodium 138 mmol/L (136-145)
[2022-05-12] MEDS: Normal Saline 1,000 ML 125 ML IV (07:25)
[2022-05-12] MEDS: Normal Saline Flush 10 ML SYR IVP (08:31)
[2022-05-12] MEDS: Pantoprazole 40 MG VIAL IVP (08:31)
--- NOTE | 2022-05-12 09:22 | PDOC.CMIN ---
- If Service Date Differs Date of service: 05/12/22 Time of Service: 09:22 Care Management Initial Assess REASON FOR HOSPITALIZATION:: appendicitis PAST MEDICAL HISTORY/PAST SURGICAL HISTORY:: ll Active Problems . Acute appendicitis (Acute). Hives (Acute). Medical History . GERD (gastroesophageal reflux disease). Surgical History . EGD - MAC (09/02/15). DR.TERRY VICENTE. Tooth extraction. WISDOM TEETH PREVIOUS FUNCTIONAL STATUS/SOCIAL/FAMILY SUPPORTS:: April lives in [place] with her Alex Adame. They have no children. 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 She is indeoendent at baseline and does not receive any community services. CURRENT FUNCTIONAL STATUS:: April was in surgery when CM came to see her. Her was in the room however and provided information. He anticipates that she may be discharged later today. He indicated that April would like to go home if at al possible.He does not feel she will need any additional supports at home. ADVANCE DIRECTIVES:: none on file Has patient been provided with info about the portal/API?: Yes Did the patient sign up for the portal?: No CODE STATUS:: Full Code INSURANCE COVERAGE / FINANCIAL ISSUES:: BS CURRENT HOME/COMMUNITY SERVICES/EQUIPMENT:: none PRIMARY CARE PHYSICIAN:: Angelina Chris POTENTIAL DISCHARGE NEEDS:: follow up with surgeon and PCP PATIENT/FAMILY EDUCATION NEEDS:: Review of discharge instructions, follow up plan, limitations, activity, discuss Ask Me Three TRANSPORTATION:: via private vehicle with PLAN:: April will anthonyley be discharged home with no new services. She will follow up with her surgeon and plan of care and transport with her .
--- NOTE | 2022-05-12 09:46 | ANES.PREOP_ITS ---
General Info Date of Service Date Performed: 05/12/22 Height: 5 ft 5 in Weight: 65.7 kg Body Mass Index (BMI): 24.0 Surgical Procedure: Operation Date: 05/12/22 10:00 Proposed Procedure Side Surgeon p Appendectomy Laparoscopic Bety Hinojosa DO Actual Procedure Side Surgeon p Appendectomy Laparoscopic Not Applicable Bety Hinojosa DO Pre-Op Diagnosis Post-Op Diagnosis ACUTE APPENDICITIS ACUTE APPENDICITIS Meds Allergies and Home Medications Allergies Allergy/AdvReac Type Severity Reaction Status Date / Time gabapentin Allergy Severe FELT LIKE Unverified 05/11/22 17:58 SHE COULDN'T BREATH, OUT OF IT sertraline HCl [From Zoloft] AdvReac Intermediate vomiting/sh Unverified 05/11/22 17:58 aky amitriptyline AdvReac Unverified 05/11/22 17:58 Home Medication Medication Instructions Recorded acetaminophen 325 mg tablet 325 - 650 mg PO PRN 01/26/15 (Tylenol) esomeprazole magnesium 40 mg 40 mg PO DAILY 05/19/19 capsule,delayed release (Nexium) mirtazapine 7.5 mg tablet 15 mg PO HS 05/19/19 Current Visit Medications: Current Medications Generic Name Dose Route Start Last Admin Trade Name Freq PRN Reason Stop Dose Admin Sodium Chloride 500 mls @ 0 mls/hr 05/11/22 21:05 Saline 500ml Bag IV PRN PRN As Directed Sodium Chloride 1,000 mls @ 125 mls/hr 05/11/22 21:15 05/12/22 07:25 Saline 1000ml Bag IV 125 mls/hr INFUSION CAREN Administration Piperacillin Sod/Tazobactam 50 mls @ 100 mls/hr 05/12/22 02:00 05/12/22 08:29 Sod 3.375 gm/ Sodium Chloride IVPB 100 mls/hr Q6H CAREN Administration Protocol Acetaminophen 1,000 mg in 100 mls @ 400 mls/hr 05/12/22 04:00 05/12/22 03:40 Ofirmev IVPB Infused Q6H CAREN Infusion IV Miscellaneous Supplies 1 each 05/11/22 21:15 Iv Access IV DIRECTED CAREN Morphine Sulfate 2 mg 05/11/22 21:05 Morphine 2 Mg/Ml Syr IVP Q1H PRN PRN Ondansetron HCl 4 mg 05/11/22 21:05 Ondansetron 4 Mg/2 Ml Vial IVP Q4H PRN PRN Pantoprazole Sodium 40 mg 05/12/22 08:30 05/12/22 08:31 Pantoprazole 40 Mg Vial IVP 40 mg DAILY CAREN Administration Sodium Chloride 0 ml 05/11/22 21:05 Normal Saline Flush 10 Ml Syr IVP PRN PRN PFSH Active Problems Active Problems: Problem Status Onset Code Hypomagnesemia E83.42 Acute appendicitis K35.80 Hives L50.9 Medical History Medical History GERD (gastroesophageal reflux disease) Surgical History Surgical History EGD - MAC (09/02/15) DR.TERRY VICENTE Tooth extraction WISDOM TEETH Tobacco Smoking/Tobacco Use Status: Current every day Tobacco Type: cigarettes Substance Use Substance use: Occasionally Substance use type: does not use Vital Signs and Lab Results Vital Signs Most Recent Vital Signs in EMR: Most Recent Vital Signs Temp Pulse Resp BP Pulse Ox 36.7 C 88 16 114/68 99 05/11/22 21:36 05/11/22 21:36 05/11/22 21:36 05/11/22 21:36 05/11/22 21:36 Point of Care Results Point of Care Results: POC- Test(urine) Negative 05/11/22 18:18 Lab Results Result Diagrams: 05/11/22 19:00 05/12/22 06:11 Blood Type / Crossmatch: No Data to Display Complete Blood Count: White Blood Count 17.30 10^3/uL (4.4-10.8) H 05/11/22 19:00 Red Blood Count 4.51 10^6/uL (3.93-5.22) 05/11/22 19:00 Hemoglobin 12.1 g/dL (11.2-15.7) 05/11/22 19:00 Hematocrit 36.1 % (36.0-46.0) 05/11/22 19:00 Platelet Count 409 10^3/uL (130-400) H 05/11/22 19:00 Complete Metabolic Panel: Sodium Level 138 mmol/L (136-145) 05/12/22 06:11 Potassium Level 3.7 mmol/L (3.5-5.1) 05/12/22 06:11 Chloride Level 108 mmol/L (98-107) H 05/12/22 06:11 Carbon Dioxide Level 23.9 mmol/L (21.0-32.0) 05/12/22 06:11 Blood Urea Nitrogen 11 mg/dL (7-18) 05/12/22 06:11 Creatinine 0.7 mg/dL (0.55-1.02) 05/12/22 06:11 Estimated GFR/1.73 m2 >= 60.00 (mL/min/1.73m2) 05/12/22 06:11 Magnesium Level 2.6 mg/dL (1.8-2.4) H 05/12/22 06:11 Calcium Level 8.1 mg/dL (8.5-10.1) L 05/12/22 06:11 Albumin 4.0 g/dL (3.4-5.0) 05/11/22 19:00 Glucose Level 86 mg/dL (74-106) 05/12/22 06:11 Liver Function Panel: Alanine Aminotransferase (ALT/SGPT) 18 U/L (14-59) 05/11/22 19: 00 Aspartate Amino Transf (AST/SGOT) 12 U/L (15-37) L 05/11/22 19: 00 Coagulation Panel: No Data to Display Cardiac Panel: No Data to Display Arterial Blood Gas: No Data to Display Venous Blood Gas: No Data to Display Pancreas Panel: Lipase 94 U/L (73-393) 05/11/22 19:00 Thyroid Panel: No Data to Display Infectious Disease: Coronavirus (COVID-19)(PCR) Negative (Negative) 05/11/22 19:45 Coronavirus 2019 Source Nasal/Nares 05/11/22 19:45 Blood Cultures: No Data to Display Toxicology Panel: No Data to Display Panel: No Data to Display Anesthesia Assessment and Plan Anesthesia History Personal History: No History of Anesthesia Complications Family History: No Family History of Anesthesia Complications Exercise Tolerance Exercise Tolerance: Metabolic Equivalents>4 Pertinent Negatives Pertinent Negatives: No Major Cardiovascular Symptoms or Complaints, No Major Pulmonary Symptoms or Complaints (Smoker), No History of CVA/TIA and Other (Dysphagia and GERD issues, protonix and pepcid since admission) Cardiac & Pulmonary Exam Cardiac Exam: Normal S1/S2 Heart Sounds Pulmonary Exam: Clear Bilateral Breath Sounds Implantable Cardiac Device Does patient have a Pacemaker or an ICD?: No Airway Exam Known Difficult Airway: No Mallampati Class: 2 Mouth Opening: Narrow (< 3cm) Thyromental Distance: Greater than 3 cm Neck Range of Motion: Full ROM Neck Circumference: Normal Teeth Condition: Normal Dentition ASA Classification ASA Score: ASA 2 Emergency Case?: Yes NPO Status NPO Status: NPO Clears >2 hours, Solids >8 hours Status Status: Negative HCG Anesthesia Plan Resuscitation Status: Full Code Anesthesia Technique: General Anesthesia Airway Planned: Endotracheal Tube Monitors Used: Standard Monitors
[2022-05-12] MEDS: Lactated Ringers 1,000 ML 30 ML IV (10:05)
--- NOTE | 2022-05-12 10:49 | APP_PTH ---
PATIENT: April Chavira I LOC: U#:[id number] AGE/SX: 31/F ROOM: RE05/11/[address]: Bety Hinojosa : 1990 BED: A DIS: 05/12/2022 SPEC #: [id number] RECD: 05/15/22 09:05 STATUS: JAMISON REQ #: [id number] MATT: 05/12/22 10:[address]: Bety Hinojosa DEPT: Surgical Specimen RECD BY: Laura Jennings ENTERED: 05/15/22 09:07 SP TYPE: Appendix OTHR DR: Angelina Chris Tissues: 1 - APPENDIX NOT INCIDENTAL Procedures: GROSS AND MICRO LEVEL 3 Comments: [id number]
--- NOTE | 2022-05-12 11:19 | W.PM.OP ---
Operative Note Operative Note DATE OF PROCEDURE: 05/12/22 PRE-OP DIAGNOSIS: Appendicitis POST-OP DIAGNOSIS: same PROCEDURE: Laparoscopic appendectomy SURGEON: Bety Tejada SQUAD LEADER: Bety Mota ANESTHESIA TYPE: Local By Surgeon and General LMA/ETT Refer to Anesthesia Record ESTIMATED BLOOD LOSS: 5 COMPLICATIONS: None Patient was transported to: PACU Patient's condition: stable Procedure Description: INDICATIONS: The patient has signs and symptoms compatible with acute appendicitis and is brought to the OR for laparoscopic appendectomy, possible open procedure. Informed consent is obtained for the procedural (explained in simple layman's terms that the pt and/or family could understand) explaining risks vs benefits and alternatives to the procedure and consequences if we do not do the procedure. Risks include but are not limited to:bleeding,infections, pneumonia, blood clots/DVT/PE, anesthesia(aspiration, damage to teeth/airway/DC/CVA//prolonged mechanical ventilation/PTX/IV infections), damage to bowel, bladder,blood vessels, ureters. Damage to solid organs requiring removal. Infertility. Leakage from anastomosis requiring colostomy. Wound infections requirng further surgery. Scarring and disfigurement. Subsequent bowel obstructions from scar tissue. Possible open procedure if minimaly invsive procedure is being attempted. Abscess and stump appendicitis as well as others. DESCRIPTION OF PROCEDURE: The patient was brought to the operating room suite and placed in supine position. Anesthesia was administered per the Department of Anesthesia. A Crowe catheter and OG tube are placed. The patient was prepped and draped in the usual sterile fashion using ChloraPrep scrub solution. Pause for the cause was done. 30 mL of 1% buffered was used for local anesthetization. A stab incision was made in the umbilicus and the Veress was inserted. Drop test was positive and insufflation was begun. When 15 mm of pressure was noted on the monitor, the Veress was removed, a #5 port inserted. Camera inserted through the port shows no damage to underlying structures. Bowel, liver and stomach that are visualized are normal in appearance. Pelvic organs are not visualized. The appendix is inflamed, erythematous,enlarged, & distened, but does not appear to have been ruptured. There is no purulent drainage in the pelvis. It is not adhered to any adjacent structures. A 12 mm port was then placed in the suprapubic position under direct visualization following creation of a local field block as well as a second 5 mm port in the LLQ. The appendix is elevated and a rent dissected into the mesentery. The base of the appendix is healthy and will hold tarsha. A Endo-SYLVIA stapler is placed across the base of the appendix and fired and 2nd stapler placed across the mesentery and fired. The appendix is placed in a bag and brought out. There is no bleeding or enteric leakage from the staple lines. The pt does not require a drain. The abdomen was copiously irrigated with a liter of saline. All saline is evacuated. The scope and ports are removed. Pneumoperitoneum is evacuated. The fascia under the 12 mm port is closed with 0 Vicryl. There was no bleeding from the port sites as when they removed and the pneumoperitoneum evacuated. The wounds were copiously irrigated and closed in 2 layers with 4-0 Monocryl.? Skin glue is used.? Sterile dressings are applied. The patient tolerated the procedure without complication, transferred to the recovery room in stable condition. Family was apprised of patient condition. The patient can be discharged home later today. BETY TEJADA, DO
--- NOTE | 2022-05-12 11:20 | W.PM.PROGNOT ---
Date of Service Date of service: 05/12/22 Time of Service: 13:06 Assessment and Plan Assessment and plan (1) S/P laparoscopic appendectomy: Status: Acute Assessment and plan: The patient is doing well post-op. Their pain is well controlled. They are having no nausea or vomiting. The pt is not having any chest pain or SOB, productive cough; no calf pain or swelling. The pt is making good urine. The pt pain is adequately controlled. The case was discussed with nursing and patient?s progress reviewed. All of the pt's home medications were addressed and adjusted accordingly for their oral intact status. HEENT: no jaundice. no eye pain/drainage/redness/swelling. Mild sore throat Cardio- NSR no chest pain, BP stable. Pulm: no sob or productive cough. no hemoptysis Incision- clean/dry. Dressing intact no excessive bleeding or drainage I discussed with the patient and/or there family about the findings in surgery and the pt's progress. We reviewed expectations for progress in the hospital; what the pt could expect for recovery time and length of stay. We discussed the importance of walking and pulmonary toilet to avoid blood clots and pneumonia. Continue current plans for pulmonary toilet, GI and DVT prophylaxis. We shall continue the current plan for pain management as it is at an appropriate level, and working well for the pt. Appropriate measures will be taken for constipation prevention, and this was also reviewed with the pt. The wound care plan was reviewed with nursing as well. see orders Objective Last Vital Signs Temp 36.2 C L 05/12/22 07:35 Pulse 69 05/12/22 07:35 Resp 18 05/12/22 07:35 BP 110/66 05/12/22 07:35 Pulse Ox 98 05/12/22 07:35 Laboratory Results - last 24 hr 05/11/22 05/11/22 05/11/22 18:02 19:00 19:00 WBC 17.30 H RBC 4.51 Hgb 12.1 Hct 36.1 MCV 80 MCH 26.8 L MCHC 33.5 RDW 14.9 H Plt Count 409 H MPV 10.5 Immature Gran % 0.3 Neutrophils % 82.4 Lymphocytes % 11.9 Monocytes % 4.9 Eosinophils % 0.2 Basophils % 0.3 Nucleated RBC % 0.0 Absolute Neutrophils 14.26 H Absolute Lymphocytes 2.06 Absolute Monocytes 0.85 H Absolute Eosinophils 0.03 Absolute Basophils 0.05 Sodium 138 Potassium 3.6 Chloride 102 Carbon Dioxide 26.7 Anion Gap 9.3 BUN 11 Creatinine 0.8 Estimated GFR/1.73 m2 >= 60.00 Glucose 85 Calcium 9.1 Magnesium 1.3 L Total Bilirubin 0.5 AST 12 L ALT 18 Alkaline Phosphatase 73 Total Protein 7.5 Albumin 4.0 Lipase 94 Urine Color Yellow Urine Clarity Clear Urine pH 7.5 Ur Specific [place] 1.015 Urine Protein Negative Urine Ketones Trace H Urine Blood Trace-intact H Urine Nitrite Negative Urine Bilirubin Negative Urine Urobilinogen 0.2 Ur Leukocyte Esterase Negative Urine RBC 0-2 Urine WBC 0-2 Ur Epithelial Cells Few Urine Crystals Negative Urine Bacteria Negative Urine Casts Negative Urine Mucus Negative Ur Culture Indicated? No Urine Glucose Negative COVID-19 Source SARS-CoV-2 (PCR) 05/11/22 05/12/22 19:45 06:11 WBC RBC Hgb Hct MCV MCH MCHC RDW Plt Count MPV Immature Gran % Neutrophils % Lymphocytes % Monocytes % Eosinophils % Basophils % Nucleated RBC % Absolute Neutrophils Absolute Lymphocytes Absolute Monocytes Absolute Eosinophils Absolute Basophils Sodium 138 Potassium 3.7 Chloride 108 H Carbon Dioxide 23.9 Anion Gap 6.1 BUN 11 Creatinine 0.7 Estimated GFR/1.73 m2 >= 60.00 Glucose 86 Calcium 8.1 L Magnesium 2.6 H Total Bilirubin AST ALT Alkaline Phosphatase Total Protein Albumin Lipase Urine Color Urine Clarity Urine pH Ur Specific [place] Urine Protein Urine Ketones Urine Blood Urine Nitrite Urine Bilirubin Urine Urobilinogen Ur Leukocyte Esterase Urine RBC Urine WBC Ur Epithelial Cells Urine Crystals Urine Bacteria Urine Casts Urine Mucus Ur Culture Indicated? Urine Glucose COVID-19 Source Nasal/Nares SARS-CoV-2 (PCR) Negative
--- NOTE | 2022-05-12 11:23 | W.PM.DS.N ---
Date of service: 05/12/22 Time of Service: 13:07 DS: Diagnosis Discharge Diagnosis (1) S/P laparoscopic appendectomy: Status: Acute Discharge Plan Disposition Patient Disposition: HOME Condition: Serious Discharge Details Reason For Visit: appendicitis Admit Date/Time: 05/11/22 19:27 Admit Provider: Bety Hinojosa Attending Provider: Bety Hinojosa Primary Care Provider: Angelina Chris Hospital Course Hospital Course: Patient came to the ER with acute appendicitis. She received IV antibiotic?Zosyn. She underwent uneventful laparoscopic appendectomy and is discharged home. She will follow-up in 2 weeks. She was given a prescription for Ultram and ibuprofen see discharge orders. Home Meds and New Rx's Prescriptions: New ibuprofen 600 mg tablet 600 mg PO Q6H PRNQty: 90 2RF Rx Instructions: take w/ food tramadol [Ultram] 50 mg tablet 50 mg PO Q4H PRNQty: 10 0RF Rx Instructions: Will cause constipation Continued acetaminophen [Tylenol] 325 MG tablet 325 - 650 mg PO PRN mirtazapine 7.5 MG tablet 15 mg PO HS esomeprazole magnesium [Nexium] 40 mg Capsule,Delayed Release(Dr/Ec) 40 mg PO DAILY Discharge Instructions Additional Instructions: Care after Surgery -Pain control: ?For the first 72 hours after surgery, take you pain meds continuously and not just when you have pain.?? Alternate Tylenol 1000mg by mouth every 8 hours, and Ibuprofen 600mg every 6 hours.? Make sure you take ibuprofen with food and not on an empty stomach.? ??Use the tramadol for breakthrough pain- pain that is greater than a 7. ?- Use ICE! Ice really helps to keep the swelling down, and swelling causes pain. ??Twenty minutes on, and then off, continuously for the first 72hours.? After the first 72hrs, you can just use the Tylenol, ibuprofen and ice, ?when you have pain.?? If you are taking narcotic pain medication, follow the instructions on the label and do not drive. Pain medications can make you very constipated. Make sure you are moving your bowels daily. If not, take Miralax, milk of magnesia or magnesium citrate.? - Anesthesia makes you very constipated.? Take a dose of milk of magnesia the morning after surgery. ? Use an ice bag for the first 72 hours. This helps to decrease swelling, which causes pain. It is normal to be more sore/painful and swollen towards the end of the day and first thing in the morning. ? Use milk of magnesia/Miralax or prune juice to prevent constipation (this is a particular side effect of pain medication and anesthesia). Do not allow yourself to become constipated. ? Start out eating very small, bland amounts of food. Do not take pain pills on an empty stomach. - You will notice purple discoloration around the incisions.? This is the ?skin glue?.? This will wear off on its own.? It is OK to shower after 24hrs.? You do not need to cover the incisions. -You should walk frequently, gradually, increasing the distance. You may climb stairs, just go slowly. ? Do not go swimming or sit in a hot tub for two weeks. ? There are no stitches to remove. ? Do not drive your car x72hrs and then only if you have no pain and can move freely. Do not drive if you are taking pain narcotic pain medications. ? You may resume sexual activity whenever pain and soreness subside, usually in 2 weeks. ? Do no lift anything over 5 lbs. for two weeks. ? You may return to work in one week, or when you feel able, provided you do not have to do any heavy lifting or prolonged standing. ? You should return to Dr. Hinojosa?s office for a post-op appointment about two weeks after surgery. A follow-up should have been scheduled for you already.? If there is not, please call the [facility] at: [phone] to schedule an appointment. My Medications for pain and nausea are: Tylenol/ibuprofen ?and ultram- for severe pain ? When to Call the Office: ? If the incision becomes red or swollen, or there is more than a little drainage from it. ? If you develop a temperature higher than 100.5 F. ? If your eyes turn yellow ? Vomiting and can?t keep fluids down Activity:: See above Equipment/Supplies:: No Equipment Needed Diet:: As Tolerated Discharge Orders Discharge Orders: Discharge Order (Routine); Ordered 05/12/22 Ordered By: Bety Hinojosa DS: Summary Time Spent with Patient providing and/or coordinating discharge services: Less than 30 minutes Status at Discharge Functional status at discharge: independent ambulation Overall status at discharge: patient is progressing back to baseline Mental Status: mental status grossly normal Speech and Movement: speech and movement normal Mood: congruent mood Affect: normal affect Exam Psych Mental Status: mental status grossly normal Speech and Movement: speech and movement normal Mood: congruent mood Affect: normal affect DS: Data Vitals/I&O Vitals and I&O: Vital Signs Temperature 36.2 C L 05/12/22 07:35 Temperature Source Tympanic 05/12/22 07:35 Pulse 69 05/12/22 07:35 Pulse Rhythm Regular 05/12/22 02:50 Respiratory Rate 18 05/12/22 07:35 Respiratory Effort Non-Labored 05/12/22 02:50 Respiratory Depth Normal 05/12/22 02:50 Respiratory Pattern Normal 05/12/22 02:50 Blood Pressure 110/66 05/12/22 07:35 Blood Pressure Position Sitting 05/11/22 17:56 Pulse Oximetry 98 05/12/22 07:35 Oxygen Delivery Method Room Air 05/12/22 07:35 Oxygen Flow Rate 0 05/12/22 07:35 Pain Level 0 05/11/22 21:36 Comment 05/11/22 17:56 Intake & Output 05/11/22 05/11/22 05/12/22 11:59 23:59 11:59 Intake Total 1312 / 1312 1700 / 1700 Output Total 600 / 600 1050 / 1050 Balance 712 / 712 650 / 650 Weight 65.7 kg 65.7 kg Intake: IV 1312 / 1312 1700 / 1700 Output: Urine 600 / 600 1050 / 1050 Other: Urine Color Yellow Yellow Urine Appearance Clear Clear Urine Odor Normal Comment voids independently Voiding Methods Toilet Data Completed and Pending Labs on day of discharge: Labs from last 24 hours 05/12/22 05/11/22 05/11/22 06:11 19:45 19:00 WBC 17.30 H RBC 4.51 Hgb 12.1 Hct 36.1 MCV 80 MCH 26.8 L MCHC 33.5 RDW 14.9 H Plt Count 409 H MPV 10.5 Immature Gran % 0.3 Neutrophils % 82.4 Lymphocytes % 11.9 Monocytes % 4.9 Eosinophils % 0.2 Basophils % 0.3 Nucleated RBC % 0.0 Absolute Neutrophils 14.26 H Absolute Lymphocytes 2.06 Absolute Monocytes 0.85 H Absolute Eosinophils 0.03 Absolute Basophils 0.05 Sodium 138 Potassium 3.7 Chloride 108 H Carbon Dioxide 23.9 Anion Gap 6.1 BUN 11 Creatinine 0.7 Estimated GFR/1.73 m2 >= 60.00 Glucose 86 Calcium 8.1 L Magnesium 2.6 H Total Bilirubin AST ALT Alkaline Phosphatase Total Protein Albumin Lipase Urine Color Urine Clarity Urine pH Ur Specific [place] Urine Protein Urine Ketones Urine Blood Urine Nitrite Urine Bilirubin Urine Urobilinogen Ur Leukocyte Esterase Urine RBC Urine WBC Ur Epithelial Cells Urine Crystals Urine Bacteria Urine Casts Urine Mucus Ur Culture Indicated? Urine Glucose COVID-19 Source Nasal/Nares SARS-CoV-2 (PCR) Negative 05/11/22 05/11/22 19:00 18:02 WBC RBC Hgb Hct MCV MCH MCHC RDW Plt Count MPV Immature Gran % Neutrophils % Lymphocytes % Monocytes % Eosinophils % Basophils % Nucleated RBC % Absolute Neutrophils Absolute Lymphocytes Absolute Monocytes Absolute Eosinophils Absolute Basophils Sodium 138 Potassium 3.6 Chloride 102 Carbon Dioxide 26.7 Anion Gap 9.3 BUN 11 Creatinine 0.8 Estimated GFR/1.73 m2 >= 60.00 Glucose 85 Calcium 9.1 Magnesium 1.3 L Total Bilirubin 0.5 AST 12 L ALT 18 Alkaline Phosphatase 73 Total Protein 7.5 Albumin 4.0 Lipase 94 Urine Color Yellow Urine Clarity Clear Urine pH 7.5 Ur Specific [place] 1.015 Urine Protein Negative Urine Ketones Trace H Urine Blood Trace-intact H Urine Nitrite Negative Urine Bilirubin Negative Urine Urobilinogen 0.2 Ur Leukocyte Esterase Negative Urine RBC 0-2 Urine WBC 0-2 Ur Epithelial Cells Few Urine Crystals Negative Urine Bacteria Negative Urine Casts Negative Urine Mucus Negative Ur Culture Indicated? No Urine Glucose Negative COVID-19 Source SARS-CoV-2 (PCR) PFSH All Active Problems (Updated 05/12/22 @ 11:22 by Bety Hinojosa DO) S/P laparoscopic appendectomy (Acute) Hives (Acute) Medical History GERD (gastroesophageal reflux disease) Surgical History EGD - MAC (09/02/15) DR.TERRY VICENTE Tooth extraction WISDOM TEETH Family History Mother Stomach cancer H/O oophorectomy H/O thyroidectomy Father Myocardial infarction Seizure disorder Grandfather Diabetes Grandmother Diabetes Stroke Maternal Aunt Seizure disorder Maternal Uncle No problems noted. Grandfather CHF (congestive heart failure) Gynecologic cancer COPD (chronic obstructive pulmonary disease) Grandmother Diabetes Essential hypertension Personal history of malignant neoplasm Maternal Uncle No problems noted. Maternal Aunt No problems noted. Sister Petit mal seizure status X 1 Asthma X 1 Brother Asthma X 1 Social History Smoking/Tobacco Use Status: Current every day Tobacco Type: cigarettes Smoking risk assessment performed?: Yes Drug use: Occasionally Substance use type: does not use Do you feel safe at home: Yes Do you feel safe in your relationship?: Yes
--- NOTE | 2022-05-12 11:40 | W.ANESPOSTOP ---
Postoperative Evaluation Date, Time and Location Date Performed: 05/12/22 Time Performed: 11:40 Patient Location: PACU Vital Signs Most Recent Imported Vital Signs: Most Recent Vital Signs Temp Pulse Resp BP Pulse Ox 36.7 C 93 H 25 H 120/72 97 05/12/22 11:33 05/12/22 11:33 05/12/22 11:33 05/12/22 11:33 05/12/22 11:33 Pain Score Most Recent Pain Score: Most Recent Pain Score Pain Level 0 05/11/22 21:36 Assessment Mental Status: Awake (Alert & Oriented to Patient Baseline) Airway and Respiratory Function: Patent airway with normal (patient baseline) respiratory exam Cardiovascular Function: Hemodynamically Stable Hydration Status: Adequately Hydrated Nausea & Vomiting: No Nausea or Vomiting Pain: Pain is tolerable per patient (4/10) Peripheral Nerve Block: Patient did not receive a nerve block
[2022-05-12] MEDS: Acetaminophen 500 MG TAB 1000 MG PO (14:15)
[2022-05-12] MEDS: Polyethylene Glycol 3350 17 GM PACKET PO (14:15)
--- NOTE | 2022-05-12 14:43 | PDOC.CMDIS ---
- If Service Date Differs Date of service: 05/12/22 Time of Service: 14:43 LACE Index Scoring Tool - Questions: Length of Stay (in days): 1 Acuity (Admit via E.D.?): Yes E.D. Visits: 2 - Answers: Total Score: 6 Risk of Readmission: Low Risk Care Management Discharge Reason for Hospitalization: appendicitis Discharge Plan: April will be discharged home with no new services. She will follow up with her surgeon and plan of care and transport with her . Patient/Family Education Needs: Review of discharge instructions, follow up plan, limitations, activity, discuss Ask Me Three
== END 2022-05-12 16:57 | disposition home or self-care (01) ==
LOC: ER 19:48 → MS 21:10
PROVIDERS: Admitting Provider Surgery; Emergency Provider Physician Assistant; PCP Nurse Practitioner Family; Visit Provider Surgery
PROC: 0DTJ4ZZ Resection of Appendix, Percutaneous Endoscopic Approach (ICD-10-PCS; CPT 44970; principal; 2022-05-12 10:00)
DX: K35.80 Unspecified acute appendicitis (principal); K21.9 Gastro-esophageal reflux disease without esophagitis; F17.210 Nicotine dependence, cigarettes, uncomplicated; E83.42 Hypomagnesemia; Z79.899 Other long term (current) drug therapy; Z20.822 Contact with and (suspected) exposure to COVID-19
CPT/HCPCS: 44970; 36415; 80048; 80053; 81025; 83690; 87635; 93005; 96361; 96365; 96366; 96367; 96368; 96375; 99285; 74176; 81003; 81015; 83735; 85025; 88304; 93010; G0378; J0131; J1100; J1885; J2405; J2543; J2704

== ENCOUNTER 2022-05-19 19:45 | Emergency (ER) | payer BC, SELFPAY ==
[2022-05-19 19:54] VITALS: BP 116/75; PULSE 107; RESP 18; TEMP 36.8; O2SAT 99
[2022-05-19 20:21] LABS: Bilirubin Negative (Negative); Blood Negative (Negative); Clarity Clear (Clear); Glucose Negative (Negative); Ketones Negative (Negative); Leukocyte Esterase Negative (Negative); Nitrite Negative (Negative); Specific Gravity >= 1.030 (1.005-1.025); Urobilinogen 0.2 EU/dL (Up TO 0.2)
--- NOTE | 2022-05-19 20:57 | ED.GENADUL_ITS ---
Discharge Plan Disposition Patient Disposition: HOME Condition: Stable Discharge Details Clinical Impression: Ovarian cyst Primary Care Provider: Cherri Bonilla ED Provider: Ju Tran Home Meds and New Rx's Prescriptions: Continued acetaminophen [Tylenol] 325 MG tablet 325 - 650 mg PO PRN mirtazapine 7.5 MG tablet 15 mg PO HS esomeprazole magnesium [Nexium] 40 mg Capsule,Delayed Release(Dr/Ec) 40 mg PO DAILY ibuprofen 600 mg tablet 600 mg PO Q6H PRNQty: 90 2RF Rx Instructions: take w/ food tramadol [Ultram] 50 mg tablet 50 mg PO Q4H PRNQty: 10 0RF Rx Instructions: Will cause constipation Discharge Instructions Instructions: Ovarian Cyst (ED) Additional Instructions: Please follow-up you have new or worsening surgery on Saturday Go to your ultrasound on Saturday, they will likely call you in the morning to schedule Ibuprofen and Tylenol as needed for pain Return earlier should you have new or worsening complaints Follow-up with [facility] regarding your PCP regarding ovarian cyst Referrals: Cherri Bonilla [Primary Care Provider] - Discharge Data Discharge Date/Time-TO BE ENTERED AT DEPARTURE: 05/19/22 23:49 Medical Decision Making Patient appears well Her labs are reassuring Her CT shows evidence of ovarian cyst with possible rupture which may be causing discomfort There is no evidence of gallbladder involvement She resting comfortably in room She declines any opiate analgesia She has a surgical follow-up on Saturday We will order right upper quadrant ultrasound to evaluate for biliary disease She has instructed to follow-up with her primary care physician regarding her ovarian cyst Return precautions discussed and patient expressed understanding Medical Records Medical records reviewed: Yes I reviewed the patient's medical records. Lab Data Lab results reviewed: Yes I reviewed the patient's lab results. HPI General Date/Time Provider Initiated Documentation: 05/19/22 20:07 . HPI Narrative: This 31-year-old female presents with report of right upper quadrant abdominal pain. She states she presented to the emergency department for similar pain a week ago, she was told she had appendicitis and actually had surgery and was having for improvement, however her pain persisted. She denies any chest pain or shortness of breath. She denies any dizziness or weakness. She denies any nausea or vomiting. She denies known exacerbating or alleviating factors. She denies any urinary complaints or diarrhea. She denies any fever or chills, denies chance of . Related Data Home Medications Medication Instructions Recorded Confirmed acetaminophen 325 mg tablet 325 - 650 mg PO PRN 01/26/15 05/19/22 (Tylenol) esomeprazole magnesium 40 mg 40 mg PO DAILY 05/19/19 05/19/22 capsule,delayed release (Nexium) mirtazapine 7.5 mg tablet 15 mg PO HS 05/19/19 05/19/22 ibuprofen 600 mg tablet 600 mg PO Q6H PRN #90 tabs 05/12/22 05/19/22 tramadol 50 mg tablet (Ultram) 50 mg PO Q4H PRN #10 tabs 05/12/22 05/19/22 Previous Rx's Medication Instructions Recorded ibuprofen 600 mg tablet 600 mg PO Q6H PRN #90 tabs 05/12/22 tramadol 50 mg tablet (Ultram) 50 mg PO Q4H PRN #10 tabs 05/12/22 Allergies Allergy/AdvReac Type Severity Reaction Status Date / Time gabapentin Allergy Severe FELT LIKE Unverified 05/19/22 19:57 SHE COULDN'T BREATH, OUT OF IT sertraline HCl [From Zoloft] AdvReac Intermediate vomiting/sh Unverified 05/19/22 19:57 aky amitriptyline AdvReac Unverified 05/19/22 19:57 General Stated Complaint: Chest/Rib AMERICO: 3 Review of Systems All systems reviewed & are unremarkable except as noted in HPI and below PFSH All Active Problems (Updated 05/19/22 @ 23:38 by PRESTON Gil) Ovarian cyst (Acute) S/P laparoscopic appendectomy (Acute) Hives (Acute) Medical History GERD (gastroesophageal reflux disease) Surgical History EGD - MAC (09/02/15) DR.TERRY VICENTE Tooth extraction WISDOM TEETH Family History Mother Stomach cancer H/O oophorectomy H/O thyroidectomy Father Myocardial infarction Seizure disorder Grandfather Diabetes Grandmother Diabetes Stroke Maternal Aunt Seizure disorder Maternal Uncle No problems noted. Grandfather CHF (congestive heart failure) Gynecologic cancer COPD (chronic obstructive pulmonary disease) Grandmother Diabetes Essential hypertension Personal history of malignant neoplasm Maternal Uncle No problems noted. Maternal Aunt No problems noted. Sister Petit mal seizure status X 1 Asthma X 1 Brother Asthma X 1 Social History Smoking/Tobacco Use Status: Current every day Tobacco Type: cigarettes Smoking risk assessment performed?: Yes Drug use: Occasionally Substance use type: does not use Do you feel safe at home: Yes Do you feel safe in your relationship?: Yes Exam Const General: cooperative, comfortable and no acute distress Orientation: alert and oriented x3 Eyes Pupils: PERRL Resp Effort & Inspection: normal respiratory effort Auscultation: clear to auscultation bilaterally Cardio Rate: regular rate Rhythm: regular rhythm GI Other: Right upper quadrant tenderness with palpation, operative site are well approximated and well-healed, mild lower abdominal tenderness, no abnormal pain with palpation over surgical site No CVA tenderness Skin General skin exam: no rashes or lesions noted Neuro General: patient alert and patient oriented x3 Extrem General: normal to inspection Course Vital Signs Vital signs: Vital Signs Temperature 36.8 C 05/19/22 19:54 Pulse 107 H 05/19/22 19:54 Respiratory Rate 18 05/19/22 19:54 Blood Pressure 116/75 05/19/22 19:54 Pulse Oximetry 99 05/19/22 19:54 Temperature 36.8 C 05/19/22 19:54 Pulse 107 H 05/19/22 19:54 Respiratory Rate 18 05/19/22 19:54 Respiratory Effort Non-Labored 05/19/22 19:57 Blood Pressure 116/75 05/19/22 19:54 Pulse Oximetry 99 05/19/22 19:54 Pain Level 6 05/19/22 19:57 Lab/Test Results Lab/Test Results: Laboratory Tests Range/Units 05/19/22 20:06 Urine Color (Yellow) Yellow Urine Clarity (Clear) Clear Urine pH (5-8) 7.0 Ur Specific [place] (1.005-1.025) >= 1.030 H Urine Protein (Negative) mg/dL Negative Urine Ketones (Negative) mg/dL Negative Urine Blood (Negative) Negative Urine Nitrite (Negative) Negative Urine Bilirubin (Negative) Negative Urine Urobilinogen (Up TO 0.2) EU/dL 0.2 Ur Leukocyte Esterase (Negative) Negative Urine Glucose (Negative) mg/dL Negative
[2022-05-19 21:13] LABS: Abs Immature Grans 0.02 10^3/uL (0.0-0.06); Absolute Basophil Count 0.05 10^3/uL (0.0-0.2); Absolute Eosinophil Count 0.16 10^3/uL (0.0-0.7); Absolute Lymphocyte Count 3.17 10^3/uL (1.2-3.4); Absolute Neutrophil Count 4.44 10^3/uL (1.2-6.7); Basophils % 0.6; Eosinophils % 1.9; HCT 37.7 % (36.0-46.0); HGB 12.3 g/dL (11.2-15.7); Immature Grans % 0.2; Lymphocytes % 37.6; MCH 26.8 pg (27.0-33.0); MCHC 32.6 % (32.0-36.0); MCV 82 fL (80-95); MPV 9.7 fL (8.0-11.0); Monocytes % 7.1; Neutrophils % 52.6; Platelet Count 406 10^3/uL (130-400); RBC 4.59 10^6/uL (3.93-5.22); RDW 15.3 % (11.7-14.6); RDW-SD 45.5 fL; WBC 8.44 10^3/uL (4.4-10.8)
[2022-05-19 21:28] LABS: ALT 38 U/L (14-59); AST 22 U/L (15-37); Albumin 3.8 g/dL (3.4-5.0); Alkaline Phosphatase 80 U/L (46-116); Anion Gap 8.8 mmol/L (3-11); BUN 16 mg/dL (7-18); Bilirubin, Total 0.3 mg/dL (0.2-1.0); CO2 27.2 mmol/L (21.0-32.0); CREATININE 0.8 mg/dL (0.55-1.02); Calcium 9.2 mg/dL (8.5-10.1); Chloride 102 mmol/L (98-107); Glucose 87 mg/dL (74-106); Lipase 175 U/L (73-393); Potassium 4.5 mmol/L (3.5-5.1); Sodium 138 mmol/L (136-145); Total Protein 7.5 g/dL (6.4-8.2)
[2022-05-19 22:14] LABS: D-Dimer 318 ng/mlFEU (<500)
--- NOTE | 2022-05-19 22:15 | DI.RAD_ITS ---
Exam(s) XR CHEST 2V PA LATERAL EXAM: XR CHEST 2V PA LATERAL CLINICAL HISTORY: RUq pain TECHNIQUE: 2D digital imaging was performed of the chest. Two images were obtained. PA and lateral views were obtained. COMPARISON: CR XR CHEST 2V PA LATERAL from 05/19/2019 FINDINGS: MEDIASTINUM: Normal. HEART: Normal. PULMONARY VASCULATURE: Normal. LUNGS: Clear. PLEURAL SPACE: No pleural effusion or pneumothorax. BONE:Within normal limits for the patient's age. OTHER FINDINGS:Normal. IMPRESSION: No acute pulmonary findings. DATA REPOSITORY: RADIATION DOSE DELIVERED:
--- NOTE | 2022-05-19 22:20 | DI.CT_ITS ---
Exam(s) CT ABDOMEN PELVIS W EXAM: CT ABDOMEN PELVIS W CLINICAL HISTORY: RUQ pain, RLQ pain, s/p appy TECHNIQUE: Imaging Protocol: Axial computed tomography images with coronal and sagittal reformatted images were created and reviewed CONTRAST MATERIAL: Intravenous: Omnipaque 350 Contrast volume:100 mL Oral: No COMPARISON: CT CT ABDOMEN PELVIS WO from 05/11/2022 FINDINGS: ABDOMEN: Lung Bases: Normal where visualized. Liver: Normal density. No measurable mass. Portal, Superior Mesenteric, and Splenic Veins: Unremarkable. Gallbladder and Biliary Tract: No radiodense calculus or dilation. Pancreas: Normal density, no abnormal calcifications or inflammatory process. Spleen: Normal. Adrenals: No masses seen. Kidneys: Normal size, contour and axis. No radiodense stones or obstructive uropathy. There is a stab le cyst in the right kidney. Abdominal Aorta: Abdominal portion non-dilated. Bowel: No obstruction or bowel wall thickening. Status post appendectomy. Peritoneal Cavity: No significant ascites, collection or mesenteric inflammatory response. No free a ir.There is no focal fluid collection to suggest an abscess. Lymph Nodes: Within normal limits. Bones: Within normal limits for the patient's age. Soft Tissues: Unremarkable. PELVIS: Bladder: Symmetric distention, no gross wall thickening. Reproductive Organs: Unremarkable as visualized. Bilateral ovarian cysts are seen. The largest is on the right and measures 2 cm. There is a trace amount of free fluid in the pelvis and adjacent to th e right ovary. This may represent a ruptured cyst. Lymph Nodes: Within normal limits. Bones: Within normal limits for the patient's age. IMPRESSION: 1. Status post appendectomy. No evidence of abscess or free air. 2. 2 cm right ovarian cyst. RADIATION DOSE DELIVERED: 806.18mGy.cm Total DLP DATA REPOSITORY: All CT scans at this facility are submitted to the National Radiology Data Registry (NRDR) Dose Index Registry (DIR) with the [employer] (ACR). RADIATION OPTIMIZATION: All CT scans at this facility use at least one of these dose optimization te chniques: automated exposure control; mA and/or kV adjustment per patient size (includes targeted exa ms where dose is matched to clinical indication); or iterative reconstruction.
[2022-05-19] MEDS: Omnipaque 350 MG/ML 100 ML BTL IJ (22:48)
--- NOTE | 2022-05-19 23:18 | DI.VRAD_ITS ---
PROCEDURE INFORMATION: Exam: XR Chest Exam date and time: 05/19/2022 10:39 PM Age: 31 years old Clinical indication: Other: Ruq pain TECHNIQUE: Imaging protocol: Radiologic exam of the chest. Views: 2 views. COMPARISON: CR XR CHEST 2V PA LATERAL 05/19/2019 7:48 PM FINDINGS: Lungs: Unremarkable. No consolidation. Pleural spaces: Unremarkable. No pleural effusion. No pneumothorax. Heart/Mediastinum: Unremarkable. No cardiomegaly. Bones/joints: Unremarkable. IMPRESSION: No acute findings. Dictated and Authenticated by: Johana Artis MD. Ordering:TARA Dodd MD
--- NOTE | 2022-05-19 23:18 | DI.VRAD_ITS ---
Addendum created by Johana Artis MD on 05/19/2022 11:30:25 PM EDT: Addendum: Additional history given: Right upper quadrant pain Initial report created on 05/19/2022 11:17:50 PM EDT: PROCEDURE INFORMATION: Exam: CT Abdomen And Pelvis With Contrast Exam date and time: 05/19/2022 10:47 PM Age: 31 years old Clinical indication: Other: Recurrent seizure TECHNIQUE: Imaging protocol: Computed tomography of the abdomen and pelvis with contrast. COMPARISON: CT ABDOMEN PELVIS WO 05/11/2022 6:32 PM FINDINGS: Lungs: Lung bases are clear. Liver: Normal. No mass. Gallbladder and bile ducts: Normal. No calcified stones. No ductal dilation. Pancreas: Normal. No ductal dilation. Spleen: Normal. No splenomegaly. Adrenal glands: Normal. No mass. Kidneys and ureters: Kidneys enhance symmetrically. No renal stones or hydronephrosis . There is a stable left renal 7 mm hypodensity, likely a cyst. Stomach and bowel: Unremarkable. No obstruction. No mucosal thickening. Appendix: Appendectomy. Minimal fat stranding at the surgical site consistent with routine postoperative change. No abscess . Intraperitoneal space: Mild free fluid in the pelvis. No free air. Vasculature: Unremarkable. No abdominal aortic aneurysm. Lymph nodes: Unremarkable. No enlarged lymph nodes. Urinary bladder: Unremarkable as visualized. Reproductive: Right ovarian 1.8 cm cyst. Uterus and left adnexa are unremarkable. Bones/joints: Unremarkable. No acute fracture. Soft tissues: Unremarkable. IMPRESSION: Unremarkable appendectomy site. 1.8 cm cyst in the right ovary and mild free fluid in the right adnexal region suspicious for cyst rupture. Dictated and Authenticated by: Johana Artis MD. Ordering:TARA Dodd MD
[2022-05-19 23:49] VITALS: BP 99/66; PULSE 94; RESP 16; O2SAT 95
== END 2022-05-19 23:49 | disposition home or self-care (01) ==
PROVIDERS: Emergency Provider Physician Assistant; PCP Nurse Practitioner Family
DX: N83.291 Other ovarian cyst, right side (principal); R10.11 Right upper quadrant pain
CPT/HCPCS: 80053; 81025; 83690; 99285; 71046; 74177; 81003; 85025; 85379; 99283; J3490

== ENCOUNTER 2022-05-21 17:02 | Emergency (ER) | payer BC, SELFPAY ==
--- OUTSIDE RECORDS SUMMARY | 2022-05-21 17:04 | XMS_ITS | Encounter Summary ---
:1990 Author Organization [facility] Address [address] [place] [address] Care Team Providers Name Role Phone Abi Kulkarni APRN Primary Care Provider Encounter Details Date Type Department Care Team Description 05/07/2016 Tech Visit Gastroenterology at [facility] Mendel Guillen, Gastroesophageal reflux [facility] Shaun WOODS [place], [place] [address] [facility] presence not specified [phone] [facility] [address] Social History Tobacco Use Types Packs/Day Years Used Date Current Every Day Smoker Cigarettes 0.5 Alcohol Use Standard Drinks/Week Comments No 0 (1 standard drink = 0.6 oz pure alcoho l) Sex Assigned at Date Recorded Not on file documented as of this encounter Progress Notes Mednel Guillen MD - 05/18/2016 12:08 PM EDT [id number] pH [facility]SU[facility] MOT[facility] April Chavira I Female, 25 y.o., 1990 , SR None PCP: Abi Kulkarni APRN MACHINE TOOL MECHANIC: None STUDY DATES: 05/03/16 to 05/05/16 INTERPRETATION DATE: 05/14/16 PROVIDER: [place] ([id number]) INDICATION Reflux symptoms despite medical therapy. NOTE: This study was performed on 40 mg of omeprazole daily. METHODS After landmarks were visualized and measured, in a supervised setting, and after informed consent, aBravo pH telemetry capsule was deployed orally and attached to the esophageal wall at 5 cm above theupper border of the LES. No complications were noted during this procedure. FINDINGS Visual inspection of the study shows fluctuations in pH values throughout the study consistent with a technically adequate study. DAY ONE Upright: 12 hours, 10 minutes Supine: 11 hours, 50 minutes Total Number of Reflux Episodes: 2 Upright Position: 2 Supine Position: 0 Reflux Episodes Longer than Five Minutes: 0 Upright: 0 Supine: 0 Duration of Longest Episode: 3 minute(s), upright position Total Distal Esophageal Acid Exposure Time: 4 minute(s). Percent of Total Recording Time: 0.3% Percent of Upright Recording Time: 0.6% Percent of Supine Recording Time: 0% Calculated DeMeester Score (normal values are up to 14.72) Day One Calculated DeMeester Score: 1.3 DAY TWO Upright: 11 hours, 30 minutes Supine: 12 hours, 30 minutes Total Number of Reflux Episodes: 3 Upright Position: 1 Supine Position: 2 Reflux Episodes Longer than Five Minutes: 1 Upright: 0 Supine: 1 Duration of Longest Episode: 11 minute(s), supine position Total Distal Esophageal Acid Exposure Time: 13 minute(s). Percent of Total Recording Time: 1% Percent of Upright Recording Time: 0.4% Percent of Supine Recording Time: 1.5% Calculated DeMeester Score (normal values are up to 14.72) Day Two Calculated DeMeester Score: 5.2 Kzyyu-Euidq-Ceqh DeMeester Score (Total): 3.8 Kwtrp-[id number]-Wgjs (Total) Fraction of Time with pH Less Than 4%: 0.6% Day One Symptoms Association Probability (SAP) for Heartburn: 0% Chest pain: 0% Regurgitation: 0% Day Two SAP for Heartburn: 0% Chest pain: 0% Regurgitation: 0% [id number] SAP for Heartburn: 0% Chest pain: 0% Regurgitation: 0% IMPRESSION During this recording period, while the patient was on 40 mg of omeprazole each day, there was no evidence of pathologic acid reflux into the distal esophagus. Symptom association was poor. NORMAL VALUES FOR WIRELESS pH CAPSULE STUDY 1. Total number of reflux episodes = less than 50. 2. Number of episodes longer than 5 minutes = less than 3. 3. Acid exposure time Total = less than 5.3% Upright = less than 6.3% Supine = less than 1.2%. ADDENDUM SAP expresses the likelihood that a specific symptom, i.e., heartburn, regurgitation, chest pain, isassociated with acid reflux. By convention, SAP values greater than 95% are positive. Mendel Guillen, PhD, MD program writer, [facility] [employer] Chief, Section of Gastroenterology and [place]atology [place] [id number] V: [phone] F: [phone] BEL/spring EC/CC: PCP - staff msg copy 05/16/16 documented in this encounter Plan of Treatment Not on filedocumented as of this encounter Visit Diagnoses Diagnosis Gastroesophageal reflux disease, esophag itis presence not specified documented in this encounter Care Teams Preparatory Technician Relationship Specialty Start Date End Date Abi Kulkarni, API ARCHITECT PCP - General Family Medicine 04/13/16 06/23/18 documented as of this encounter
--- OUTSIDE RECORDS SUMMARY | 2022-05-21 17:04 | XMS_ITS | Encounter Summary ---
:1990 Author Organization [facility] [place] [address] Care Team Providers Name Role Phone Abi Kulkarni APRN Primary Care Provider Reason for Visit Diagnostic Test (Routine) - Canceled Specialty Diagnoses / Procedures Referred By Contact Refer red To Contact Gastroenterology Diagnoses Gastroesophageal reflux disease without esophagitis Jayro Chavez MD [facility] [place] Gastro 4t Procedures Manometry Esophageal LUZ CAPSULE PH TEST [facility] [place] [address] Fax: Referral ID Status Reason Start Expiration Visits Visits Date Date Requested Authorized [id number] Canceled Specialty 04/18/2016 04/18/2017 1 1 Service Requested Encounter Details Date Type Department Care Team Description 05/03/2016 Procedure visit Gastroenterology at [place] Jayro Chavez, Dyspepsia [facility] Shaun WOODS MD [address] [phone] GASTROENTEROLOGY [place] [address] Social History Tobacco Use Types Packs/Day Years Used Date Current Every Day Smoker Cigarettes 0.5 Alcohol Use Standard Drinks/Week Comments No 0 (1 standard drink = 0.6 oz pure alcoho l) Sex Assigned at Date Recorded Not on file documented as of this encounter Progress Notes Jayro Chavez MD - 05/03/2016 10:19 PM EDT LUZ capsule placed successfully documented in this encounter Plan of Treatment Not on filedocumented as of this encounter Visit Diagnoses Diagnosis Dyspepsia Dyspepsia and other specified disorders of function of stomach documented in this encounter Care Teams Field Sales Engineer Relationship Specialty Start Date End Date Abi Kulkarni APRN PCP - General Family Medicine 04/13/16 06/23/18 documented as of this encounter
--- OUTSIDE RECORDS SUMMARY | 2022-05-21 17:04 | XMS_ITS | Encounter Summary ---
:1990 Author Organization [facility] [place] [address] Care Team Providers Name Role Phone Abi Kulkarni APRN Primary Care Provider Reason for Referral Speech Therapy (Routine) - Closed Specialty Diagnoses / Procedures Referred By Contact Refer red To Contact Speech Pathology / Diagnoses Dysphagia, unspecified type Malgorzata Hwang [facility] Elevating Grader Operator Rehab Speech Therapy MD Keegan [facility] [address] [place], [place] GASTROENTEROLOGY [address] [place] [address] Referral ID Status Reason Start Date Expiration Date Visits V isits Requested Authorized [id number] Closed Evaluate and 12/06/2016 12/06/2017 1 1 Treat Reason for Visit Reason Comments Follow-up Encounter Details Date Type Department Care Team Description 12/06/2016 Office Visit Gastroenterology at [facility] [place], Dysphagia, [facility] [place] [address] [facility] [phone] C[place] [address] Social History Tobacco Use Types Packs/Day Years Used Date Current Every Day Smoker Cigarettes 0.5 Alcohol Use Standard Drinks/Week Comments No 0 (1 standard drink = 0.6 oz pure alcoho l) Sex Assigned at Date Recorded Not on file documented as of this encounter Last Filed Vital Signs Vital Sign Reading Time Taken Comments Blood Pressure 148/63 12/06/2016 9:49 AM EST Pulse 95 12/06/2016 9:49 AM EST Temperature - - Respiratory Rate - - Oxygen Saturation - - Inhaled Oxygen Concentration - - Weight 75.1 kg (165 lb 9.6 oz) 12/06/2016 9:49 AM EST Height 165.1 cm (5' 5) 12/06/2016 9:49 AM EST Body Mass Index 27.56 12/06/2016 9:49 AM EST documented in this encounter Patient Instructions Patient InstructionsMalgorzata Hwang - 12/06/2016 10:00 AM EST You came in for follow up of your trouble swallowin. Modified barium swallow: This is looking at your swallowing ability of your throat 2. Gabapentin: 100mg every night for 2 weeks, if you are feeling well without any sleepiness, you can increase it to 100mg twice per day for two weeks. If still feeling well can increase to 100mg threetimes per day. documented in this encounter Progress Notes Malgorzata Hwang - 12/06/2016 10:00 AM EST [facility] Section of Gastroenterology and Hepatology Outpatient Follow Up Consultation Reason for Visit: globus, nausea, dysphagia ID: April Chavira is a 26 y.o. female with past medical history of active tobacco use who presents for a second opinion for vague constellation of symptoms entailing nausea, globus, dysphagia, weight loss, early satiety, bloating and reflux despite Omeprazole 40 mg daily. Interval History: She reports that anything has texture will get stuck in her throat. Previously it was just liquid. She is taken in ensure, yogurts. She feels like oatmeal or anything of that consistency also gets stuck. She was started on Remeron it has helped her gain weight. Her weight has increased to 165 from 111pounds over approximately 6-7 months. She takes omeprazole 40mg every morning. This greatly helps with her nausea and that is completely resolved. She reports moving her bowels regularly. She denies any abdominal pain, bloating, diarrhea, constipation, hematochezia. #reflux/globus/dyspepsia: -Since she was [age] years old which started with morning nausea upon awakening. At times causing her to have emesis. In July she noted a globus sensation associated with dysphagia. She has beenon Omeprazole 40 mg twice daily. Which did help manage her nausea. She states if she misses a singledose will noted worsening nausea. She has to minimize her symptoms put herself on a liquid/puree diet since. She underwent an upper endoscopy at [facility] in October and was told normal. After eating feelsfood stuck sensation/globus after eating. At times feels throat closing sensation. Denies regurgitation. At times acid burp. Denies classic heartburn symptoms. Now back down to Omeprazole 40 mg daily(half hour before supper). Denies oral ulcers, regular BM's. Grazing throughout the day. Drinks an ensure. -04/13/16 EGD: The examined esophagus was normal. Mid and distal esophageal biopsies taken to evaluatefor eosinophilic esophagitis. The Z-line was regular and was found 38 cm from the incisors. The entire examined stomach was normal. Biopsies were taken with a cold forceps for Helicobacter pylori testing. The examined duodenum was normal. Biopsies for histology were taken with a cold forceps for for evaluation of celiac disease. 04/12/16 HREM: IMPRESSION 1. Normal LES resting pressure. 2. Normal LES relaxation (IRP, integrated relaxation pressure). 3. UES resting pressure just above normal limits. This is usually not clinically significant. 4. Normal UES relaxation. 5. Normal motility in the body of the esophagus. 6. No evidence of a hiatal hernia on this study. 7. Normal DCI (distal contractile integral). This is a measure of contractile vigor. -04/26: LUZ test: IMPRESSION During this recording period, while the patient was on 40 mg of omeprazole each day, there was no evidence of pathologic acid reflux into the distal esophagus. Symptom association was poor. 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 promethazine (PHENERGAN) 25 mg Tablet 0 ??? mirtazapine (REMERON) 7.5 mg Tablet 0 ??? LORazepam (ATIVAN) 0.5 mg Tablet 0 ??? omeprazole (PRILOSEC) 40 mg Capsule, Delayed Release(E.C.) 0 ??? GN-Kkq-Tfhrp Acid-Lutein 500-250 mcg Tablet, Chewable Take by mouth. ??? desipramine (NOPRAMIN) 10 mg Tablet Take 1 tablet by mouth nightly. (Patient not taking: Reported on 12/06/2016) 14 tablet 3 No current facility-administered medications for this visit. Allergies Allergen Reactions ??? Zoloft [Sertraline] Nausea And Vomiting Physical Examination: BP 148/63 Pulse 95 Ht 165.1 cm (5' 5) Wt 75.1 kg (165 lb 9.6 oz) BMI 27.56 kg/m2 General:Pleasant, cooperative, NAD, WN/WD HEENT: NC/AT, PERRL, MMM Chest: CTA bilaterally, no wheeze, rale or rhonchi CVS: Regular rate and rhythm, normal s1/s2, no murmur, rub or gallop ABD: soft, non-tender, non-distended, normal active bowel sounds. Skin:No rash or lesion, tattoos on back Neuro: AAOx3, Grossly non-focal. Additional Testing: Reviewed available labs, imaging and endoscopy results in [facility] as well as Scan Docs tab. IMPRESSION: April Chavira is a 26 y.o. y.o. F without significant PMH, actively smoking who presents for a second opinion for globus, dysphagia, weight loss, early satiety, bloating and reflux despite Omeprazole 40 mg daily. Overall, she has gained weight since being started on Mirtazapine and has been able to eat more withthings like yogurt, but have anything with more texture than that. At this point we reviewed the results of her normal Luz, no evidence of reflux on omeprazole 40 mg daily and her normal HREM exam. Her symptoms most likely represent a sensory disorder. Will proceed with modified barium swallow to ensure no oropharyngeal cause. We discussed the treatment for sensory would be TCA like amitriptyline or desipramine, but she is worried about side effects. Therefore will trial gabapentin. We discussed that low dose TCA most likely would be okay with mirtazapine, but will pursue gabapentin first. RECOMMENDATIONS: # Modified Barium swallow. # Continue Omeprazole daily # Encouraged smoking cessation as most likely exacerbating symptoms # Small frequent meals, elevate head of bed, no eating 3 hours before bedtime # trial of gabapentin 100mg qhs x 2 weeks, and can uptitrate to 100mg BID x two weeks with a goal [id number] TID. Follow up in 5 months Malgorzata Hwang [place] [address] P: [phone] F: [phone] CC Abi Kulkarni APRN [address] [place] [address] Kirsten Grant MD - 12/06/2016 10:00 AM EST ATTENDING ATTESTATION: I have discussed the patient with the GI fellow, Dr. Hwang and I agree with her findings, assessment, and plan as written. Kirsten Grant MD Gastroenterology attending Pager [phone] documented in this encounter Plan of Treatment Scheduled Referrals Name Type Priority Associated Diagnoses Order S chedule Referral to Speech Outpatient Referral Routine Dysphagia, Or dered: Therapy unspecified type 12/06/2016 documented as of this encounter Results XR Fluoro Modified Barium Swallow (04/30/2017 9:20 AM EDT) Anatomical Region Laterality Modality N/A Radio Fluoroscopy Specimen (Source) Anatomical Location Collection Method / Collectio n Time Received Time / Laterality Volume Impressions 04/30/2017 10:00 AM EDT Normal modified barium swallow. Narrative 04/30/2017 10:00 AM EDT EXAMINATION: XR FLUORO MODIFIED BARIUM SWALLOW CLINICAL HISTORY: rule out oropharyngeal dysphagia TECHNIQUE: A modified barium swallow was performed in conjunction with speech therapy. Fluoroscopy time: 1.08 minutes. COMPARISON: None FINDINGS: All phases of swallowing with all consis tencies are normal. Hyolaryngeal elevation and epiglottic inversion are n ormal and timely. Posterior pharyngeal contact is excellent. No laryngeal penet ration, aspiration or residual is seen. Rapid sequence imaging in AP and lateral projection were normal and barium was followed down the esophagus and into the stomach. A 13 mm barium tablet moved very rapidly from mouth to stomach. Procedure Note Chance Haider MD - 04/30/2017Format ting of this note might be different from the original. EXAMINATION: XR FLUORO MODIFIED BARIUM S [facility] CLINICAL HISTORY: rule out oropharyngeal dysphagia TECHNIQUE: A modified barium swallow was performed in conjunction with speech therapy. Fluoroscopy time: 1.08 minutes. COMPARISON: None FINDINGS: All phases of swallowing with all consis tencies are normal. Hyolaryngeal elevation and epiglottic inversion are n ormal and timely. Posterior pharyngeal contact is excellent. No laryngeal penet ration, aspiration or residual is seen. Rapid sequence imaging in AP and lateral projection were normal and barium was followed down the esophagus and into the stomach. A 13 mm barium tablet moved very rapidly from mouth to stomach. IMPRESSION Normal modified barium swallow. Kirsten Grant MD IMG FLUORO ORDERABLES documented in this encounter Visit Diagnoses Diagnosis Dysphagia, unspecified type Dysphagia, unspecified type documented in this encounter Care Teams Wing Scorer Relationship Specialty Start Date End Date Abi Kulkarni, DIRECTOR OF DIGITAL PLATFORMS PCP - General Family Medicine 04/13/16 06/23/18 documented as of this encounter
--- OUTSIDE RECORDS SUMMARY | 2022-05-21 17:04 | XMS_ITS | Encounter Summary ---
:1990 Author Organization [facility] [place] [address] Care Team Providers Name Role Phone Angelina Chris APRN Primary Care Provider Reason for Referral Diagnostic Test (Routine) - Specialty Diagnoses / Procedures Referred By Contact Refer red To Contact Radiology Diagnoses Dizziness Steven Jones MD [facility] Rad Mri Procedures MRI Brain wwo Contrast (Generic) [facility] [place] [address] [place] [address] Referral ID Status Reason Start Date Expiration Visits Visits Date Requested Authorized [id number] Specialty 09/01/2018 10/30/2018 1 1 Service Requested Reason for Visit Consultation (Routine) - Closed Specialty Diagnoses / Procedures Referred By Contact Refer red To Contact Neurology Diagnoses MIGRAINE TYPE HEADACHES WITH ASSOCIATED VERTIGO. NORMAL MRI IN DEC 2014, HAS BEEN SEEN BY A NEUROLOGIST BUT IS LOOKING FOR ANOTHER CONSULTATION Angelina Chris APRN [facility] Neurology 3c [address] [place], [place] [address] [place] [address] Fax: Referral ID Status Reason Start Date Expiration Date Visits V isits Requested Authorized [id number] Closed Consult, 06/24/2018 06/24/2019 1 1 [facility] Encounter Details Date Type Department Care Team Description 09/01/2018 Office Visit Neurology at [facility] Steven Jones Dizziness; [facility] MD Karon Other migraine without status migrainosu s, not intractable Drive [facility] [place] [address] Neurology [phone] [place] [address] (Wo rk) Social History Tobacco Use Types Packs/Day Years Used Date Current Every Day Smoker Cigarettes 0.5 Smokeless Tobacco: Never Used Alcohol Use Standard Drinks/Week Comments No 0 (1 standard drink = 0.6 oz pure alcoho l) Sex Assigned at Date Recorded Not on file documented as of this encounter Last Filed Vital Signs Vital Sign Reading Time Taken Comments Blood Pressure 132/70 09/01/2018 10:39 AM EDT Pulse 89 09/01/2018 10:39 AM EDT Temperature - - Respiratory Rate - - Oxygen Saturation - - Inhaled Oxygen Concentration - - Weight 80.7 kg (178 lb) 09/01/2018 10:39 AM EDT Height 165.1 cm (5' 5) 09/01/2018 10:39 AM EDT reporte d Body Mass Index 29.62 09/01/2018 10:39 AM EDT documented in this encounter Progress Notes Steven Jones MD - 09/01/2018 11:00 AM EDT NEUROLOGY CLINIC [facility] [place] [id number] Facsimile: 09/01/2018 Neurology consultation Patient name: April Chavira Date of : 1990 Referring provider: Angelina Chris APRN [address] [place] [phone] Reason for referral/Chief complaint: We are seeing this patient for evaluation of dizziness. I have reviewed the available notes and records. HPI: April Chavira is a 27 y.o. female with a history of anxiety and episodic migraine without clear aura who is referred for evaluation of dizziness. She tells me 4 years ago while on a beach in [place] she suddenly developed a dizzy sensation. Is not imbalance but more a combination of lightheadedness and possibly vertigo. She feels like she could fall down but never has. This sensation has been constant ever since. It gets better when she lies down and worse when she stands up but has never gone awayin 4 years. When this started she got an MRI of the brain without contrast. The report is found in our system and is normal. She seen an eye doctor since and was told that her left eye does not adjust as quickly as her right eye but otherwise everything is normal. She does not have constant headache. However, she does have fairly significant headache at least twice a month with minor headaches between 5 and 10 additional days per month. When headaches are severethey are associated with nausea as well as sensory light though not phonophobia. There are no TAC symptoms no positional component to her headaches. She has a long history of nausea. Alcohol is up since her stomach but can also contribute to headaches. She no longer drinks. Past medical history: Past medical history, including problem list, past medical conditions, family history, social history, allergies, surgical history, and current medications were reviewed with the patient and updated asappropriate in the electronic record. Other than those included in the HPI above, pertinent neurologic positives and negatives include the following: She has a history of globus hystericus. She has a history of anxiety and intolerance to numerous medications. Her older sister gets migraine headaches as does her mother. She has no children. 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 She drinks coffee frequently throughout the day including in the eveningas late as 5 PM and has trouble falling asleep but once she is asleep she stays asleep. She continues to smoke and is not ready to quit. Review of systems: A 14-point review of systems was conducted and pertinant positives and negatives recorded in the HPI. Other than those points recorded in the HPI, all system reviewed are negative. Objective: BP 132/70 (BP Location (NBP): Right arm, Patient Position: Sitting, BP Cuff Sizes: Adult (25-34 cm)) Pulse 89 Ht 165.1 cm (5' 5) Comment: reported Wt 80.7 kg (178 lb) BMI 29.62 kg/m?? General: nondiaphoretic, no acute distress. Appears well though mildly overweight. Head/Neck: normocephalic/atraumatic. Oropharynx clear. Neck supple, no pain to palpation of neck. NoLAD. Sclera anicteric. CV: regular rate/rhythm, no murmurs/rubs/gallops. No carotid bruits. Pulm: clear to auscultation bilaterally. Good air movement. Abd: soft with normal BS and no tenderness Extremities/MSK: no edema, no joint abnormalities. Psych: She is very pleasant with no outward signs of anxiety or depression Neuro: Mental Status: alert. Normal orientation, language, attention. HEENT/CN: PERRL, EOMI without nystagmus, no ptosis, visual hussein intact. Symmetric smile, eyelids closed equally. Palate elevated symmetrically, midline tongue, no dysarthria or fasciculations or atrophy. Optic disks sharp bilaterally with normal venous pulsations and no papilledema. Head impulse test is negative in both directions. Motor: Normal tone and bulk. No pronator drift. Fast finger and toe taps. No fasciculations, or other adventitious movements. Strength 5/5 proximally distally in all 4 limbs. She does have a low amplitude high-frequency tremor that is symmetric and present with hands outstretched and also present with finger-nose perhaps more on the left than the right. Reflexes: 2+ and symmetric throughout Sensation: Normal to light touch and vibration. Romberg is negative. Coordination: Normal gveodc-wzwe-ymcaio with no dysmetria or ataxia and rapid alternating movements. Gait: Normal gait with symmetric arm swing and narrow base. Able to heel and toe walk with normal tandem gait. Data: I reviewed the MRI report and noted the pertinent positives above in the HPI. I also reviewed the referring MDs records and included the pertinent positives and negatives above in the HPI and history. Assessment and Plan: 1. Episodic migraine 2. Chronic dizziness: This may be new daily persistent headache with prominent dizziness rather thanheadache. Anxiety or a functional neurologic disorder is another possibility. Her neurologic exam isvery reassuring that this is not due to any secondary condition. I will obtain MRI of the brain withcontrast to rule out spontaneous intracranial hypotension. I recommended a combination of magnesium 400-800 mg and riboflavin 400 mg a day. We reviewed side effects including diarrhea and discolorationof urine. I will refer her to our headache center for an expert opinion on diagnosis and management.She will call me a few days after she gets the MRI to review the results, or if normal we can reviewit over the computer. Thank you for this consult. Please do not hesitate to contact me with additional questions or concerns. Steven Jones MD 09/01/2018 Camp Program Director of Neurology [facility] documented in this encounter Plan of Treatment Scheduled Orders Name Type Priority Associated Diagnoses Order S chedule MRI Brain wwo Contrast Imaging Routine Dizziness Expec zaid: 09/08/2018, (Generic) Expires: 2018 documented as of this encounter Visit Diagnoses Diagnosis Dizziness Dizziness and giddiness Other migraine without status migrainosu s, not intractable documented in this encounter Care Teams Steam Tank Operator Relationship Specialty Start Date End Date Angelina Chris APRN PCP - General Family Medicine 06/24/[address] [place] [phone] documented as of this encounter
--- OUTSIDE RECORDS SUMMARY | 2022-05-21 17:04 | XMS_ITS | Clinical Summary ---
:1990 Author Organization [facility] [place] [address] Care Team Providers Name Role Phone Angelina Chris APRN Primary Care Provider Allergies Active Allergy Reactions Severity Noted Date Comments Amitriptyline Palpitations 09/01/2018 Gabapentin Shortness Of Breath High 09/01/2018 Sertraline Nausea And Vomiting High 03/08/2016 Medications Medication Sig Dispensed Refills Start Date End Date Status mirtazapine (REMERON) Take 7.5 mg by 0 02/15/2016 Active 7.5 mg Tablet mouth nightly. esomeprazole (NEXIUM) Take 40 mg by 0 Active 40 mg Capsule, Delayed mouth daily. Release(E.C.) cholecalciferol, Take 2,000 Units 0 Active Vitamin D3, 2,000 unit by mouth daily. Capsule multivitamin Take 1 tablet by 0 Active (THERAGRAN) Tablet mouth daily. hydrOXYzine (ATARAX) 25 Take 1/2 to 1 30 tablet 12 09/17/2018 Active mg Tablet full tablet as needed for headache, nausea and anxiety. Can use up to three times a day Family History Medical History Relation Comments Myocardial Infarction Father Myocardial Infarction Maternal Grandfather Cancer Maternal Grandmother ?uterine cancer Cancer Mother stomach cancer Migraines Mother Migraines Sister 1 Seizure Disorder Sister 1 Asthma Sister 2 Chronic Obstructive Pulmonary Disease Sister 2 Migraines Sister 2 Relation Status Comments Father Maternal Grandfather Maternal Grandmother Mother Sister 1 Alive Sister 2 Alive Social History Tobacco Use Types Packs/Day Years Used Date Current Every Day Smoker Cigarettes 0.5 Smokeless Tobacco: Never Used Comments: started at age 16 Alcohol Use Standard Drinks/Week Comments No 0 (1 standard drink = 0.6 oz pure alcoho l) Sex Assigned at Date Recorded Not on file Last Filed Vital Signs Vital Sign Reading Time Taken Comments Blood Pressure 132/83 09/17/2018 9:22 AM EST Pulse 98 09/17/2018 9:22 AM EST Temperature - - Respiratory Rate 16 04/13/2016 3:44 PM EDT Oxygen Saturation 100% 04/13/2016 3:44 PM EDT Inhaled Oxygen Concentration - - Weight 80.7 kg (178 lb) 09/17/2018 9:22 AM EST Height 165.1 cm (5' 5) 09/17/2018 9:22 AM EST reported Body Mass Index 29.62 09/17/2018 9:22 AM EST Plan of Treatment Health Maintenance Due Date Last Done Comments Covid-19 Vaccine (#1) 1996 HIV screen 2009 Hepatitis C Screening 2009 Tdap adult 2010 Tetanus vaccine 2010 HPV test 2021 PAP Smear 2021 Influenza (Flu) vaccine (1 of 1 - Influenza standard 07/12/2022 series) Care Teams Framing Consultant Relationship Specialty Start Date End Date Angelina Chris, WHEEL SETTER PCP - General Family Medicine 06/24/[address] [place] [id number]
--- OUTSIDE RECORDS SUMMARY | 2022-05-21 17:04 | XMS_ITS | Encounter Summary ---
:1990 Author Organization [facility] [place] [address] Care Team Providers Name Role Phone Angelina Chris APRN Primary Care Provider Encounter Details Date Type Department Care Team Description 09/01/2018 Orders Only Neurology at [facility] [place] [address] Social History Tobacco Use Types Packs/Day Years Used Date Current Every Day Smoker Cigarettes 0.5 Smokeless Tobacco: Never Used Alcohol Use Standard Drinks/Week Comments No 0 (1 standard drink = 0.6 oz pure alcoho l) Sex Assigned at Date Recorded Not on file documented as of this encounter Plan of Treatment Not on filedocumented as of this encounter Visit Diagnoses Not on filedocumented in this encounter Care Teams Seed Expert Relationship Specialty Start Date End Date Angelina Chris APRN PCP - General Family Medicine 06/24/[address] [place] [phone] documented as of this encounter
--- OUTSIDE RECORDS SUMMARY | 2022-05-21 17:04 | XMS_ITS | Encounter Summary ---
:1990 Author Organization [facility] [address] Care Team Providers Name Role Phone Angelina Chris APRN Primary Care Provider Reason for Visit Diagnostic Test (Routine) - Specialty Diagnoses / Procedures Referred By Contact Refer red To Contact Radiology Diagnoses Dizziness Steven Jones MD [facility] Rad Mri Procedures MRI Brain wwo Contrast (Generic) [facility] [place] [address] [place] [address] Referral ID Status Reason Start Date Expiration Visits Visits Date Requested Authorized [id number] Specialty 09/01/2018 10/30/2018 1 1 Service Requested Encounter Details Date Type Department Care Team Description 09/08/2018 Hospital En[place] [facility] [place] Canceled [facility] MD Karon ([address] [facility] DATE OR TIME) [place] [address] Neurology [phone] [place] [address] Social History Tobacco Use Types Packs/Day Years Used Date Current Every Day Smoker Cigarettes 0.5 Smokeless Tobacco: Never Used Alcohol Use Standard Drinks/Week Comments No 0 (1 standard drink = 0.6 oz pure alcoho l) Sex Assigned at Date Recorded Not on file documented as of this encounter Medications at Time of Discharge Medication Sig Dispensed Refills Start Date End Date esomeprazole (NEXIUM) 40 mg Take 40 mg by mouth 0 Capsule, Delayed daily. Release(E.C.) cholecalciferol, Vitamin Take 2,000 Units by 0 D3, 2,000 unit Capsule mouth daily. multivitamin (THERAGRAN) Take 1 tablet by 0 Tablet mouth daily. mirtazapine (REMERON) 7.5 Take 7.5 mg by mouth 0 02/15/2016 mg Tablet nightly. documented as of this encounter Plan of Treatment Not on filedocumented as of this encounter Visit Diagnoses Not on filedocumented in this encounter Care Teams Lapel Padder Blindstitch Relationship Specialty Start Date End Date Angelina Chris APRN PCP - General Family Medicine 06/24/[address] [place] [phone] documented as of this encounter
--- OUTSIDE RECORDS SUMMARY | 2022-05-21 17:04 | XMS_ITS | Encounter Summary ---
:1990 Author Organization [facility] [place] [address] Care Team Providers Name Role Phone Abi Kulkarni APRN Primary Care Provider Reason for Visit Reason Onset Date Comments Results 06/04/2016 Encounter Details Date Type Department Care Team Description 06/04/2016 Telephone Gastroenterology at [facility] [place] Akbar Dupree, [place] [phone] Social History Tobacco Use Types Packs/Day Years Used Date Current Every Day Smoker Cigarettes 0.5 Alcohol Use Standard Drinks/Week Comments No 0 (1 standard drink = 0.6 oz pure alcoho l) Sex Assigned at Date Recorded Not on file documented as of this encounter Miscellaneous Notes Telephone Encounter - Akbar Dupree RN - 06/04/2016 1:44 PM EDT RN paged to 4L office assistant receptionist desk, patient there asking for LUZ Capsule study results. Reviewed patient chart. Met briefly with patient, informed her LUZ study results show no pathologic reflux, results normal. Patient formerly seen by Dr. Chavez, asks for follow-up appointment with another provider. Checked with appointment secretaries (engaged at this time), instructed patient to telephone at [phone] to arrange f/u appointment with another provider. Patient agreed. documented in this encounter Plan of Treatment Not on filedocumented as of this encounter Visit Diagnoses Not on filedocumented in this encounter Care Teams Wind Energy Mechanic Relationship Specialty Start Date End Date Abi Kulkarni APRN PCP - General Family Medicine 04/13/16 06/23/18 documented as of this encounter
--- OUTSIDE RECORDS SUMMARY | 2022-05-21 17:04 | XMS_ITS | Encounter Summary ---
:1990 Author Organization [facility] Address [address] [place] [address] Care Team Providers Name Role Phone Abi Kulkarni APRN Primary Care Provider Encounter Details Date Type Department Care Team Description 04/30/2017 Hospital Encounter XRay at [facility] [place] Juanita, Dysphagia, [address] Kirsten Damon MD unspecified type [facility] [address] [place] [phone] [place] [address] Social History Tobacco Use Types Packs/Day Years Used Date Current Every Day Smoker Cigarettes 0.5 Alcohol Use Standard Drinks/Week Comments No 0 (1 standard drink = 0.6 oz pure alcoho l) Sex Assigned at Date Recorded Not on file documented as of this encounter Medications at Time of Discharge Medication Sig Dispensed Refills Start Date End Date mirtazapine (REMERON) 7.5 Take 7.5 mg by 0 2015 mg Tablet mouth nightly. gabapentin (NEURONTIN) Take 1 capsule by 90 capsule 12 201609/01/2018 100 mg Capsule mouth 3 times daily. desipramine (NOPRAMIN) 10 Take 1 tablet by 14 tablet 3 06/201609/01/2018 mg Tablet mouth nightly. promethazine (PHENERGAN) 0 02/16/2016 09/01/2018 25 mg Tablet LORazepam (ATIVAN) 0.5 mg 0 02/14/2016 09/01/2018 Tablet omeprazole (PRILOSEC) 40 0 01/25/2016 09/01/2018 mg Capsule, Delayed Release(E.C.) documented as of this encounter Plan of Treatment Not on filedocumented as of this encounter Procedures Procedure Name Priority Date/Time Associated Diagnosis Comme nts XR FLUORO BARIUM Routine 04/30/2017 9:20 AM Dysphagia, Resul ts for this SWALLOW EDT unspecified type procedure a re in (MODIFIED/VIDEO the results SWALLOW PHARYNX) section. documented in this encounter Results XR Fluoro Modified Barium [...] original. EXAMINATION: XR FLUORO MODIFIED BARIUM S CLINICAL HISTORY: rule out oropharyngeal dysphagia TECHNIQUE: [...] encounter Visit Diagnoses Diagnosis Dysphagia, unspecified type documented in this encounter Administered Medications Inactive Administered Medications - up to 3 most recent administrations Medication Order MAR Action Action Date Dose Rate Site barium sulfate (E-Z DISK) tablet Given 04/30/2017 9:45 AM EDT 70 0 mg 700 mg 700 mg, Oral, ONCE, 1 dose, On Sat04/30/17 at 0945, Routine barium sulfate (EZPAQUE) oral suspension 355 Given 9:45 AM EDT 355 mLs mL 355 mL, Oral, ONCE, 1 dose, On Sat04/30/17 at 0945, Routine barium sulfate (VARIBAR PUDDING) oral paste Given 04/30/2017 9:45 AM EDT 10 mLs 10 mL 10 mL, Oral, ONCE, 1 dose, On Sat04/30/17 at 0945, Routine barium sulfate (VARIBAR THIN LIQUID) oral Given 04/30/2017 9:45 AM EDT 10 mLs powder 10 mL 10 mL, Oral, ONCE, 1 dose, On Sat04/30/17 at 0945, Routine documented in this encounter Care Teams Global Chief Creative Officer Relationship Specialty Start Date End Date Abi Kulkarni APRN PCP - General Family Medicine 04/13/16 06/23/18 documented as of this encounter
--- OUTSIDE RECORDS SUMMARY | 2022-05-21 17:04 | XMS_ITS | Encounter Summary ---
:1990 Author Organization [facility] [place] [address] Care Team Providers Name Role Phone Andrewzeus Abi Louis APRN Primary Care Provider Encounter Details Date Type Department Care Team Description 04/30/2017 Office Visit Speech Therapy at [facility], Matthew amrte, [facility] [place] ORACLE EBS DEVELOPER unspecified type [facility] [address] [place], [place] PHYSICAL MEDICINE & [address] REHABILITATION [phone] [place] [address] Social History Tobacco Use Types Packs/Day Years Used Date Current Every Day Smoker Cigarettes 0.5 Alcohol Use Standard Drinks/Week Comments No 0 (1 standard drink = 0.6 oz pure alcoho l) Sex Assigned at Date Recorded Not on file documented as of this encounter Progress Notes Anika [place], ORACLE EBS DEVELOPER - 04/30/2017 8:00 AM EDT Speech-Language Pathology Modified Barium Swallow Evaluation Patient Name: April Chavira Date of : 1990 Referring MD: Dr. Hwang Date Seen by MD: 12/06/16 Diagnosis: No diagnosis found. Date of Onset: Ongoing since 2014 Date of Evaluation: 04/30/17 Total Treatment Time: 90 minutes Certification Period: Evaluation only Total Timed Code Treatment: 0 minutes S: Pt. denies pain at this time. Pt alert and cooperative with study. She was standing for the durationof the procedure. O: Order received and completed with this 26 y[address] Dr[address] Hwang for a modified barium swallow. Pt has had an ongoing hx of dysphagia for the last 2 year per her report. She initially lost asignificant amount of weight and was then started on medications for Pt repots a chronic globus sensation with all PO intake that has texture. Her diet consists primarily of smooth solids (yogurt, etc) and liquid supplements at this time. She reports that she has made attempts to include more solid consistencies in her diet but that she consistently experiences difficulty. She has had a fairly extensive workup to determine possible cause which has been inconclusive to this point. Medical History: No past medical history on file. Allergies: Allergies Allergen Reactions ??? Zoloft [Sertraline] Nausea And Vomiting Current Diet: Regular solids, thin liquids Cognitive-Linguistic Status: alert, Ox3, able to follow simple directions and respond to basic questions Respiratory Status: pt on room air Feeding / Oral Care Status: pt independent Seating and Positioning: pt able to sit up with head midline without assistance Oral Peripheral WFL: labial, buccal, lingual, jaw ROM, strength, agility, and sensation are adequate for PO intake Velar elevation and retraction adequate Adequate laryngeal elevation, retraction to palpation Volitional swallow, throat clear, cough prompt and strong Speech and voice judged to be WNL Bolus Presentation(s) (all consistencies are mixed with Barium) ?? thin liquid via spoon, via cup, via straw ?? thick puree via spoon ?? mechanical soft via spoon ?? regular large bite ?? pills Oral Preparatory Phase WFL; adequate lip closure, no anterior loss from oral cavity; adequate bolus cohesion and A-P propulsion; prompt swallow initiation. ?? Mild oral residue; reflexively cleared with an additional swallow Pharyngeal Phase Appears to be WFL, no overt clinical s/s aspiration or pharyngeal dysphagia noted during evaluation. Prompt, distinct, and coordinated swallow without breath or vocal quality changes. Esophageal Phase WFL, no reflux noted, normal relaxation of upper esophageal sphincter Modifications Attempted: ?? No modifications attempted as they were not indicated. A: Dx: ?? No significant Oropharyngeal Dysphagia noted at this time with this study. Pt demonstrated tolerance and safety with all consistencies trialed. No aspiration, penetration, or pharyngeal residue noted with trials completed today. Would recommend attempting trials of less restrictive solids over timefor increased variety with PO intake. Okay to advance to regular solids as tolerated. ?? Aspiration / Penetration Scale Score (RosenRobert tarango et al. Dysphagia, 1995) ??? 1 = no material enters the airway ??? 2 = material enters the airway, does not touch the vocal cords, and is completely ejected ??? 3 = material enters the airway, does not touch the vocal cords, but is not ejected ??? 4 = material enters the airway, contacts the vocal cords, but is ejected ??? 5 = material enters the airway, contacts the vocal cords, but is not ejected ??? 6 = material enters the airway, passes below the vocal cords, and is ejected ??? 7 = material passes below the vocal cords, is not ejected, but there is effort made to expel material ??? 8 = material passes below the vocal cords, and there is no attempt to eject it Recommendations: ?? Diet: Regular solids and thin liquids ?? Standard aspiration precautions ?? Upright for all PO intake and 30-45 minutes following ?? Small bites and sips ?? Alternate bites and sips ?? Several small meals versus larger meals ?? Consider relaxation techniques before meal times if belief is that anxiety may be a component P: ?? No Speech Pathology intervention recommended at this time ?? Pt is in agreement with plan of treatment. Thank you for this consult with this patient. Please feel free to page me with any questions or concerns. Eric Collazo, [facility] EBS DEVELOPER Speech-Language Pathologist Rehabilitation Medicine Pager # [phone] documented in this encounter Plan of Treatment Not on filedocumented as of this encounter Visit Diagnoses Diagnosis Dysphagia, unspecified type documented in this encounter Care Teams Nutritional Services Cook Relationship Specialty Start Date End Date Abi Kulkarni APRN PCP - General Family Medicine 04/13/16 06/23/18 documented as of this encounter
--- OUTSIDE RECORDS SUMMARY | 2022-05-21 17:04 | XMS_ITS | Encounter Summary ---
:1990 Author Organization [facility] Address [address] [place] [address] Care Team Providers Name Role Phone Abi Kulkarni APRN Primary Care Provider Encounter Details Date Type Department Care Team Description 12/13/2016 Telephone [place] [facility] [place]ann Castro, [facility] [place] [phone] Social History Tobacco Use Types Packs/Day Years Used Date Current Every Day Smoker Cigarettes 0.5 Alcohol Use Standard Drinks/Week Comments No 0 (1 standard drink = 0.6 oz pure alcoho l) Sex Assigned at Date Recorded Not on file documented as of this encounter Miscellaneous Notes Telephone Encounter - Louann Castro RN - 12/13/2016 3:10 PM EST April calls with complaints of fatigue and a worsening of her Vertigo since starting Gabapentin 100mg daily on Saturday. Will discuss with Dr. Hwang documented in this encounter Plan of Treatment Not on filedocumented as of this encounter Visit Diagnoses Not on filedocumented in this encounter Care Teams Automobile Assembler Relationship Specialty Start Date End Date Abi Kulkarni, RECORDS MANAGEMENT ANALYST PCP - General Family Medicine 04/13/16 06/23/18 documented as of this encounter
--- OUTSIDE RECORDS SUMMARY | 2022-05-21 17:04 | XMS_ITS | Encounter Summary ---
:1990 Author Organization [facility] [place] [place] [address] Care Team Providers Name Role Phone Angelina Chris APRN Primary Care Provider Reason for Referral Diagnostic Test (Routine) - Specialty Diagnoses / Procedures Referred By Contact Refer red To Contact Radiology Diagnoses Steven Berger MD [facility] Rad Mri Procedures MRI Brain wwo Contrast (Generic) [facility] Neurology [place] [id number] [place] [phone] Referral ID Status Reason Start Date Expiration Visits Visits Date Requested Authorized [id number] Specialty 09/01/2018 10/30/2018 1 1 Service Requested Reason for Visit Diagnostic Test (Routine) - Specialty Diagnoses / Procedures Referred By Contact Refer red To Contact Radiology Diagnoses Steven Berger MD [facility] Rad Mri Procedures MRI Brain wwo Contrast (Generic) [facility] [place] [address] [place] [address] Referral ID Status Reason Start Date Expiration Visits Visits Date Requested Authorized [id number] Specialty 09/01/2018 10/30/2018 1 1 Service Requested Encounter Details Date Type Department Care Team Description 09/29/2018 Hospital Encounter MRI at [facility] [place] Steven Jones Dizziness [facility] MD [facility] [place] [address] Neurology [phone] [place] [address] (Wo rk) Social History Tobacco Use Types [...] Sig Dispensed Refills Start Date End Date hydrOXYzine (ATARAX) 25 mg Take 1/2 to 1 full 30 tablet 12 1 11/17/2017 Tablet tablet as needed for headache, nausea and anxiety. Can use up to three times a day esomeprazole (NEXIUM) 40 mg Take 40 mg by mouth 0 Capsule, Delayed daily. Release(E.C.) cholecalciferol, Vitamin Take 2,000 Units by 0 D3, 2,000 unit Capsule mouth daily. multivitamin (THERAGRAN) Take 1 tablet by 0 Tablet mouth daily. mirtazapine (REMERON) 7.5 Take 7.5 mg by mouth 0 02/15/2016 mg Tablet nightly. documented as of this encounter Plan of Treatment Scheduled Orders Name Type Priority Associated Diagnoses Order S chedule MRI Brain wwo Contrast Imaging Routine Dizziness 1 Occ urrences starting (Generic) 09/29/2018 unti l 09/29/2018 documented as of this encounter Visit Diagnoses Diagnosis Dizziness Dizziness and giddiness documented in this encounter Care Teams Industrial Machine Assembler Relationship Specialty Start Date End Date Angelina Chris, FOOD EDITOR PCP - General Family Medicine 06/24/18 [address] [place] [address] documented as of this encounter
--- OUTSIDE RECORDS SUMMARY | 2022-05-21 17:04 | XMS_ITS | Encounter Summary ---
:1990 Author Organization [facility] [place] [address] Care Team Providers Name Role Phone Angelina Chris APRN Primary Care Provider Reason for Visit Reason Comments Headache Encounter Details Date Type Department Care Team Description 09/17/2018 Office Visit Neurology at [facility] Sole Cook MD [facility] [place] [address] Chronic migraine without aura without st atus migrainosus, not intractable; [facility] Vero Soriano MD [facility] [address] [place] [address] Social History Tobacco Use Types Packs/Day Years [...] Mass Index 29.62 09/17/2018 9:22 AM EST documented in this encounter Patient Instructions Patient InstructionsVero Soriano MD - 09/17/2018 10:00 AM EST Office Number: ([facility] - [place]) Clinic nurse number for most issues and prescription refills ([place]) (Megan) For Prescription Refills: Please call for refills when you have one month left on your medication, we have 48 hours from the time you call to get the medication refill placed. Please call the clinic rather then using my-DH or e-mail, as the communication is better in real time. Thank you and I look forward to working with you. Keep your Calendar and bring them to your appointment please. Diagnosis: Chronic Migraines without Aura Lightheadedness of unclear etiology - For Headache Prevention: - Magnesium oxide 500mg daily, we recommend purchasing the [employer] brand - SE: Can cause loose stools - Riboflavin (B2) 400mg daily, start 1 week after the Magnesium. We recommend purchasing from [employer] (online) - SE: can turn urine bright yellow/orange - Coenzyme Q10 400mg daily, start 1 week after the Riboflavin. We recommend purchasing from [employer] (online) - Can consider Cefaly or sTMS device - For acute headache therapy - Hydroxyzine 12.5-25mg for headache, nausea and anxiety. Can use up to three times a day. - SE: sedation Tests: MRI brain with and without contrast as ordered by Dr. Jones Referral for autonomic testing with neurology to assess for POTS (postural orthostatic tachycardia syndrome) Recommend initiating counseling to assist with anxiety management. Can try [employer] [facility] if needed to find a different counselor. Follow-up with Dr. Soriano in 2-3 months documented in this encounter Progress Notes Sole Cook MD - 09/17/2018 10:00 AM EST Neurology Attending Note Sole Cook MD (Pg [phone]) I certify that I have seen and examined April Chavira on 09/17/[address] Soriano, Headache Fellow. The note reflects the patient's history of presentation, physical findings. The assessment and plan were formulated together in discussion and I have personally reviewed all studies. April Chavira is a 27 y.o. PMH anxiety and multiple somatic complaints (dysphagia, fatigue, weight loss reflux, headache etc) s/p evaluation with GI and Neurology evaluation presenting for the 3rd subspeciality neurology evaluation. There is a desire to evaluate for vestibular migraine in the setting of a f/h of migraines. Patient has a h/o headaches, can be severe headache with nausea, and photophobia without aura. She has bitemporal headache throbbing in quality lasting 4-5 hours and improve with sleep. She has a background daily headache that is mild 3/10 RANGEL intensity in the bilateral temporal region and will fluctuate throughout the day but worse at the end of the day. In May 2014 on vacation she has the abrupt onset of light headedness, nausea and black spots in vision with increased headache pain - acute and sever 10/10 intensity - lasting 5 hours. She was seen int he ED at [facility] when she returned home due to persistent vertigo after the resolution of the headache. She did have some palpitations. MRI brain was normal in 2014. Since that time there is a light headed sensation - like my head is going to float away there are hear palpitations and chest tightness with changes in position. Nausea is chronic. There is no associated photophobia or phonophobia. Assessment: Migraine without aura There is no evidence of vertigo therefore not Migraine assorted vertigo. Concern for anxiety component Recommendation for counselor - she has one Orthostatics are mildly abnormal but does not clearly meet criteria for POTS Will send her for testing in Neurology Consider tilt table Agree with Vitamin supplements Spring TMS and Cefaly have been discussed Vero Soriano MD - 09/17/2018 10:00 AM EST Images from the original note were not included. Neurology Headache Clinic Initial Consultation Patient name: April Chavira Date of : 1990 PCP: Angelina Chris APRN CC: Headache I have been asked to see April Chavira in consultation by Dr. Jones for her c/o Headaches in my capacity as Headache Medicine Specialist. HPI: 27 year old female with anxiety, vague various medical complaints with normal work up from GI including endoscopy with biopsy (dysphagia, fatigue, globus, weight loss, early satiety, bloating and reflux) presenting for evaluation of headaches. Chart review Appears initially seen by [facility] Neuorlogy clinic on 01/26/15. Was tested for vitamin D, ESR, CRP, CHARLES,CBC, CMP, TSH and lyme which were normal except vitamin D 14.8. EKG normal They note sudden development of lightheadedness, diaphoresis, shakiness and generalized weakness, requiring bedrest. Meclizine, BPPV and vestibular rehab only led to mild improvement in symptoms. She notes lightheadedness, withsensation of presyncope and shakiness that worsens with anxiety, heat and exertion. Noted that she felt at her best in the morning. Headaches were well controlled, and not a concern to patient. Was trialed on Magnesium and naproxen PRN, it appears possibly without improvement. She was then prescribed topiramate 50mg daily, which she never started due to concern about side effects. Patient was just seen in the Neurology Clinic by Dr. Jones on 09/01/18 for dizziness. Per his note, she has a history of episodic migraine, long standing. Separately, developed lightheadedness while on a beach in [place]. She noted sensation is constant, never going away. Better with lying down, and worse with standing. No clear if she had orthostatic vitals assessed. MRI brain without contrast from OSH was normal. Denied to him headache with association clearly with lightheadedness. Given report ofmigraine in her medical history, she was referred to our clinic for evaluation of per note ?NDPH although her main complaint was lightheadedness - it does also appear from his notes suspicion also existed for anxiety or somatization. Started on Magnesium 400-800mg daily, and riboflavin 400mg daily. Repeat MRI was ordered. For her globus/dyspepsia, she was sent for endoscopy with biopsy suggestive of reflux, otherwise normal. She was placed on omeprazole. For dysphagia, swallow study performed, which was normal. For report of weight loss, she was placed on remeron and gained 54 pounds (111->165) over a 6 month period. She was prescribed gabapentin as well for ?functional etiology by GI. Noted consideration of amitriptyline as well. Headaches per patient She notes that headaches started around age 13-14. Headaches occurred multiple times a month, did not miss school. No other symptoms. Most of the time lasted less than a day. Started to become more frequent early 20s, and she has been having daily headaches since then, with severe headaches a few times a month. With severe headaches has photophobia mainly with mild phonophobia, she feels that nausea may worsen but unsure because she was constantly nauseous for many years. No aura. Headaches are bi-temporal, sometimes R>L. Normally throbbing. Reaches peak in a half hour. Headaches an 8/10. Severe headaches last for 4-5 hours. Sleeping helps. Daily headaches also bi-temporal. Pressure like. A 3/10 to barely noticeable in the background. These are not associated with symptoms other than pain. Pretty much always there, can fluctuate, gets worse later in the day. Best in the morning. Can get random stabbing pains in the back of the head, random, lasts a minute or so and then goes away. Lightheadedness Paitierobyn aburptly developed lightheadedness while on vacation in [place] [facility] in 05/2014. While walking down the beach, she had abrupt onset of stabbing pain on the top of her head that she notes was 10/10, felt shaky, nausea worsened, felt lightheaded (feeling like she could pass out), was diaphoretic, heart was racing, and black spots in vision. Stabbing pain lasted for 5 hours with gradual resolution.Sweatiness and heart palpitations were gone in a half hour. Since then, the lightheadedness, shakiness and nausea have remained. She did not go to the ED during her vacation. Once she returned home, she went to the ED at [facility] for evaluation, where she got hydrated, and they did a CXR (had tightness inher chest), no head imaging initially performed. Her EKG was normal. As noted above, she was then referred to Neurology at [facility] and MRI without contrast as well as multiple lab studies were performed and came back unremarkable. The light headedness, palpitations, and nausea have persisted. She notes that she has felt lightheaded like her head is floating away, no room spinning. Maybe feels a bit off balanced at times but has never fallen. She gets exacerbations of the light headedness with heat, exertion, and when she changes position quickly. She feels like she could pass out, has heart palpitations, and chest tightness with these exacerbations. Lightheadedness is always there, and exacerbations when they are triggered can last up to a half hour or a day. She feels at her best first thing in the morning, and symptoms worsen throughout the day. Has chronic nausea, but improved with Nexium. No association with photophobia or phonophobia, not associated to her knowledge with headache exacerbations. When pressed, notes that she may occasionally have lightheadedness worsening with exacerbations, less than hlaf of the time. Sometimes in the evening, her feet will burn and turn red, like they are overheating. No clear increased sensitivity to pain otherwise. No bowel irregularity. Has not had orthostatics checked. Feels that the lightheadedness has improved with the mirtazapine significantly, she couldn't groceryshop before due to lightheadedness. Ophthalmology noted that eye exam was normal, appears she has myopia in her L>R eye. Additional Hx: Can get fullness of ears No dysarthria, tinnitus, diplopia or ataxia No Cutaneous allodynia No neck pain or jaw pain with movements or chewing Headaches have no relation with physical activity Very rarely bending can transiently worsen the headache. No position change that exacerbates headaches. Aura: None Prodrome: None Triggers: heat is a trigger, eye strain/computer time, motion sickness, caffiene withdrawal headaches Alleviating factors: Sleep and laying down jane donuts Migraine Disability Assessment # of days in the past 3 months 1. Missed work / school because of RANGEL 0 2. Productivity at work / school reduced by > half because of RANGEL (do not count days from Q.1) 8 3. Did not do housework because of RANGEL 7 4. Productivity in household work reduced by > half because of RANGEL (do not count days from Q.3) 7 5. Missed family / social / leisure activities because of RANGEL 7 Total 29 MIDAS grade (use total of Q1 to 5) I: 0-5, little to no disability II: 6-10, mild disability III: 11-20, moderate disability IV: 21+, severe disability A. # of days in the last 3 months with a RANGEL (count each day if RANGEL lasted > 1 day) 90/90 B. Average RANGEL intensity (0-10) 02/18 Sleep: Goes to bed at 10-11PM, takes 1 hour to fall asleep, doesn't think she snores. Doesn't wake up overnight, wakes up 6AM. Has fatigue throughout the day. Caffeine use: 3-4 large cups of coffee daily No hx of renal stones or asthma Trauma: None Abuse: none Psych: anxiety, hasn't had a counselor in the past. Patient has a history of motion sickness Family History of headaches: older sister, mother Contraception: None Previous work-up: -04/13/16 EGD: The examined esophagus was normal. [...] the distal esophagus. Symptom association was poor. MRI brain without contrast 12/23/17 Current Pain/Mood Medications: Mirtazapine 7.5mg nightly - started for anxiety/loss of appetite/swallowing issues and has helped with vertigo symptoms. For two years. Medications Tried (In bold) Aimovig/Eptinezumab Botox ONB SPN Topamax/ Topiramate Zonisamide/zonegran Valproate/ Depakote Lamictal Gabapentin/Neurontin - report of allergy Levetiracetam /Keppra Propranolol/Inderal Amlodipine Nadolol/Cogard Atenolol/Tenormin Metoprolol/Lopressor Lisinopril/Prinivil Candesartan/Atacand Verapamil Diltiazem Nifedipine Diamox/Acetazolamide Amitriptyline/Elavil - report of allergy Nortriptiline/Paelmor Imipramine /Tofranil Fluoxetine/Prozac Sertraline/Zoloft - report of allergy Paroxetine/Paxil Citalopram/Celexa Escitalopram/lexapro Venlafaxine/Effexor Duloxetine/cymbalta Desvenlafaxine/Pristiq/ Khedezia Bupropion/Wellbutrin Namenda/Memantine Mirtazapine Prednisone DHE Nasal spray/Migranal DHE injections Sumatriptan /Imitrex Relpax/Eletriptan Zomig/Zolmotriptan Maxalt/Rizotriptan Axert/Almotriptan Amerge/Naratriptan Frova/Frovatriptan Treximet (sumatriptan and naproxen) Fioricet Fiorinal Flexeril Baclofen Tizanidine Robaxin/Methocarbamol Phenergan/Promethazine - worked for nausea Reglan Zofran- worked for nausea Seroquel/quetiapine Chlorpromazine/ thorazine Prochlorperazine/Compazine Vistaril/Hydroxyzine/Atarax Doxylamine/Pyridoxine (Antihistamine) Benadryl Cyproheptadine/Periactin Tylenol/Acetaminophen Toradol Aspirin Excedrin Ibuprofen/Advil Indomethacin Diclofenac potassium Naproxen sodium/Aleve Meloxicam Celebrex Midrin Sansert Stadol Nasal spray Magnesium - took for 2 weeks Coenzyme Q10 Vit. B2(riboflavin) Butterbur Feverfew Melatonin Ketamine Overton Percocet Vicodin Oxycodone Dilaudid Tramadol Morphine Marijuana Ativan(lorazepam) Xanax(alprazolam) Spring TMS Cefaly headband nVNS/Gammacore Past Medical History: No past medical history on file. Medications: Current Outpatient Medications Medication Sig Dispense Refill ??? esomeprazole (NEXIUM) 40 mg Capsule, Delayed Release(E.C.) Take 40 mg by mouth daily. ??? cholecalciferol, Vitamin D3, 2,000 unit Capsule Take 2,000 Units by mouth daily. ??? multivitamin (THERAGRAN) Tablet Take 1 tablet by mouth daily. ??? mirtazapine (REMERON) 7.5 mg Tablet Take 7.5 mg by mouth nightly. 0 No current facility-administered medications for this visit. Allergy: Allergies Allergen Reactions ??? Gabapentin Shortness Of Breath ??? Zoloft [Sertraline] Nausea And Vomiting ??? Amitriptyline Palpitations Family History: No family history on file. Social History: Social History Socioeconomic History ??? Marital status: Single Spouse name: Not on file ??? Number of children: Not on file ??? Years of education: Not on file ??? Highest education level: Not on file Social Needs ??? Financial resource strain: Not on file ??? Food insecurity - worry: Not on file ??? Food insecurity - inability: Not on file ??? Transportation needs - medical: Not on file ??? Transportation needs - non-medical: Not on file Occupational History ??? Not on file Tobacco Use ??? Smoking status: Current Every Day Smoker Packs/day: 0.50 Types: Cigarettes ??? Smokeless tobacco: Never Used Substance and Sexual Activity ??? Alcohol use: No ??? Drug use: No ??? Sexual activity: Not on file Other Topics Concern ??? Not on file Social History Narrative ??? Not on file Review of systems: Constitutional: No fevers or chills Eyes: No vision changes, no diplopia, no blurry vision ENT: No rhinorrhea or pharyngitis, no meningismus CV: No chest pain or palpitations Resp: No cough, no shortness of breath GI: No nausea, vomiting, diarrhea or constipation : No dysuria, no incontinence Heme: No bleeding or bruising Endo: No diabetes or thyroid disease Neuro: See HPI Psych: No depression, normal sleep [x] Review of systems otherwise negative Physical Exam: Most Recent Vitals: 09/17/18 0922 BP: 132/83 Pulse: 98 HEENT: oral mucosa moist, no thrush Musk: No tenderness to palpation of bilateral occiput or paracervical musculature. Skin: No rashes Ext: no edema, adequate pulses Neuro exam: MSE: alert, oriented to person, place, time, situation, follows simple and complex commands, speech fluent with no dysarthria CN: PERRL, no nystagmus, EOMI, visual hussein intact to confrontation, facial sensation intact, no facial droop or asymmetry, tongue protrudes midline, uvula and palate elevate symmetrically, trap symmetric strength bilaterally Fundoscopic examination: crisp optic cups, no AV nicking, venous pulsations b/l Motor: RUE 5/5 throughout LUE 5/5 throughout RLE 5/5 throughout LLE 5/5 throughout Normal bulk and tone No pronator drift Reflexes 2+ bilat biceps, brachioradialis, triceps 2+ bilat patella, achilles downgoing toes bilaterally Sensation: intact light touch diffusely Coordination: intact finger nose finger and JULIA, no dysmetria, no tremor Gait: normal stride and arm swing, able to perform tandem gait. Negative romberg. Labs: No results found for this or any previous visit (from the past 24 hour(s)). Diagnostic Tests and Imaging: Previous lab studies and MRI reviewed, see HPI Assessment and plan: 27 year old female with anxiety, vague various medical complaints with normal work up from GI including endoscopy with biopsy and swallow evaluation (dysphagia, fatigue, globus, weight loss, early satiety, bloating and reflux) presenting for evaluation of headaches and lightheadedness. Patient reports a long standing history of headaches extending back to her teenage years, with mild daily headaches and severe headaches a few times a month that have been overall unchanged since age 20. Patient's daily headaches are very mild, and do not affect her ability to function. Severe headaches are associated with photophobia and possible mild photophobia, unclear if nausea truly worsens from baseline. Given report of improvement with sleep, and family history of migraines with report of motion sickness, these headaches are likely chronic migraines without aura. Patient's report of 4 years of lightheadedness, does not appear to be related to her headaches directly, and patient does not meet ICHD-3 criteria for vestibular migraine (does not actually have dizziness/vestibular symptoms, lightheadedness is not associated with headaches or photo/phonophobia more than 50% of the time). Patient also does not meet criteria for NDPH, as patient experienced abrupt onset of daily lightheadedness 4 years ago on a remembered date, not headaches. Lightheadedness while always there to some extent, has exacerbations that are associated with stress, heat, physical activity and sudden position changes. Exacerbations are associated with palpitationsand sensation of chest tightness, +/- nausea. Patient also has report of intermittent nightly burning/redness of her feet. While patient has noted improvement in her symptoms with start of mirtazapine for her anxiety, and certainly patients with anxiety and migraines can be at higher risk for non-specific dizziness symptoms, certain components of history raise possibility of POTS (?small fiber neuropathy, report of symptoms that can be seen in autonomic dysfunction, positional component of lightheadedness/palpitations). In the examination today, while tachycardia was noted with positional changes, increase in heart ratedid not fully meet criteria for POTS (93 sitting to 115 standing by 2-3 minutes, 22 BPM increase). Still, at this juncture feel it is appropriate to refer patient for formal sudomotor autonomic testingto complete work up before concluding that her symptoms are secondary to anxiety. Patient was counseled to make an appointment with a counselor she was referred to recently (was debating this, but ultimately agreed to make the appointment). She was counseled that she may continue tonote further improvement in her symptoms with counseling and appropriate medical management. For her headaches, patient was counseled on preventative medications and neuromodulation devices. Patient would like to limit medication use, due to medication sensitivities. Will trial vitamin supplementation, and consider neuromodulation device therapy (Cefaly vs sTMS). For acute treatment of headaches, will trial PRN hydroxyzine. Diagnosis: Chronic Migraines without Aura Lightheadedness of unclear etiology - For Headache Prevention: - Magnesium oxide 500mg daily, we recommend purchasing the [employer] brand - SE: Can cause loose stools - Riboflavin (B2) 400mg daily, start 1 week after the Magnesium. We recommend purchasing from [employer] (online) - SE: can turn urine bright yellow/orange - Coenzyme Q10 400mg daily, start 1 week after the Riboflavin. We recommend purchasing from [employer] (online) - Can consider Cefaly or sTMS device - For acute headache therapy - Hydroxyzine 12.5-25mg for headache, nausea and anxiety. Can use up to three times a day. - SE: sedation Tests: MRI brain with and without contrast as ordered by Dr. Jones Referral for autonomic testing with neurology to assess for POTS (postural orthostatic tachycardia syndrome) Recommend initiating counseling to assist with anxiety management. Can try [employer] [facility] if needed to find a different counselor. Follow-up with Dr. Soriano in 2-3 months documented in this encounter Plan of Treatment Not on filedocumented as of this encounter Visit Diagnoses Diagnosis Chronic migraine without aura without st atus migrainosus, not intractable Chronic migraine without aura, without m ention of intractable migraine without mention of status migrainosus Lightheadedness Dizziness and giddiness documented in this encounter Care Teams Side Panel Padder Relationship Specialty Start Date End Date Angelina Chris APRN PCP - General Family Medicine 06/24/[address] [place] [id number] documented as of this encounter
[2022-05-21 17:05] VITALS: BP 118/73; PULSE 96; RESP 14; TEMP 37.2; O2SAT 97
--- OUTSIDE RECORDS SUMMARY | 2022-05-21 17:05 | XMS_ITS | Encounter Summary ---
:1990 Author Organization [facility] [place] [address] Care Team Providers Name Role Phone Abi Kulkarni APRN Primary Care Provider Reason for Visit Auth/Cert Specialty Diagnoses / Procedures Referred By Contact Refer red To Contact Diagnoses Dysphagia, unspecified EGD mid esophageal biopsies for EoE, LUZ placement on MEDs Procedures PRO UPPER GI ENDOSCOPY, DIAGNOSTIC EGD, UPPER GI ENDOSCOPY EGD, UPPER GI ENDOSCOPY Referral ID Status Reason Start Date Expiration Date Visits Requ ested Visits Authorized [id number] 1 1 Encounter Details Date Type Department Care Team Description 04/13/2016 Hospital En[place] [facility] [place], [facility] [place] [address] [facility] [phone] [facility] [place], [place] [address] Social History Tobacco Use Types Packs/Day Years Used Date Current Every Day Smoker Cigarettes 0.5 Alcohol Use Standard Drinks/Week Comments No 0 (1 standard drink = 0.6 oz pure alcoho l) Sex Assigned at Date Recorded Not on file documented as of this encounter Last Filed Vital Signs Vital Sign Reading Time Taken Comments Blood Pressure 116/70 04/13/2016 3:44 PM EDT Pulse 92 04/13/2016 3:44 PM EDT Temperature - - Respiratory Rate 16 04/13/2016 3:44 PM EDT Oxygen Saturation 100% 04/13/2016 3:44 PM EDT Inhaled Oxygen Concentration - - Weight - - Height - - Body Mass Index - - documented in this encounter Discharge Instructions Discharge InstructionsKirsty Jackman RN - 04/13/2016 3:46 PM EDT UPPER GI ENDOSCOPY with Luz PH Capsule WHAT TO EXPECT AFTER THE PROCEDEURE After the test you may feel a little more gassy or bloated than usual. This is normal. ACTIVITY Because of the sedation that you recieved Your judgement and reaction time are affected ?? Go home and rest quietly for the remainder of the day. You may resume your normal activities tomorrow. ?? Change from one position to the next slowly. You may loose your balance unexpectedly. ?? Be careful on stairs, as you may be unsteady on your feet. FOR THE NEXT 24 HRS ?? DO NOT DRIVE OR OPERATE ANY MACHINERY ?? DO NOT DRINK ALCOHOLIC BEVERAGES ?? DO NOT SIGN LEGAL DOCUMENTS or make important decisions ?? If you are a smoker: DO NOT SMOKE WHILE YOU ARE ALONE Diet ?? Start by eating small portions of foods that ordinarily won't upset your stomach. Be gentle with what you choose to start with. ?? Drink plenty of fluids ( unless otherwise told not to) Medications ?? You may have a mild sore throat. Ice chips, popsicles, over- the-counter throat lozenges or spay may help numb your throat. This procedure should not cause a fever. ?? You may experience some chest discomfort that may or may not get worse with swallowing. If this happens try drinking a warm liquid which will help relax the esophagus. Or use pain medicine that you normally would use ( Tylenol, advil ...). Peppermint tea may also be useful. This discomfort usually passes after 24-48 hrs. Other Instructions Be sure to carry your oil spot washer within 3 feet at all times . Follow the instructions that were given to you along with your diary. IV SITE may get red or tender. This is normal. You may use warm compresses 20 minutes at a time on and off for the next day or so. If the tenderness +/or redness increases or foul drainage and a red streak occurs, please contact your PCP WHEN SHOULD YOU CALL FOR HELP? Call 911 anytime you think that you need emergency care. For example, call if: You passed out (lost consciousness). You cough up blood. You vomit blood or what looks like coffee grounds. You pass maroon or very bloody stools. Call your doctor now or seek immediate medical attention if: Severe chest pain that gets worse with swallowing You have trouble swallowing. You have belly pain. Your stools are black or tarlike or have streaks of blood. You are sick to your stomach or cannot keep fluids down. Watch closely for changes in your health, and be sure to contact your doctor IF Your throat still hurts after a day or two You do not get better as expected. Saturday-Saturday Same Day Endo [phone] [id number]-[id number] Otherwise contact [phone] and ask to speak to the urology surgeon conference and event organiser Brooklyn Dupree RN [phone] if any problems with oil spot washer Follow-up care is a paredes part of your treatment and safety. Be sure to make and go to all appointments, and call your doctor if you are having problems. Instructions have been reviewed and patient expresses understanding documented in this encounter Medications at Time of Discharge Medication Sig Dispensed Refills Start Date End Date mirtazapine (REMERON) 7.5 Take 7.5 mg by 0 2015 mg Tablet mouth nightly. promethazine (PHENERGAN) 0 02/16/2016 09/01/2018 25 mg Tablet LORazepam (ATIVAN) 0.5 mg 0 02/14/2016 09/01/2018 Tablet omeprazole (PRILOSEC) 40 0 01/25/2016 09/01/2018 mg Capsule, Delayed Release(E.C.) documented as of this encounter H&P Notes Jayro Chavez MD - 04/13/2016 3:12 PM EDT Gastroenterology & Hepatology Pre-Procedure History and Physical Planned Procedure: EGD: Indication: reflux, chest pain, LUZ placement There is no problem list on file for this patient. Medications: Reviewed in EDH Allergies Allergen Reactions ??? Zoloft [Sertraline] Nausea And Vomiting Social History/Family History: Reviewed in EDH. No changes Exam: Vitals: 04/13/16 1444 BP: 116/80 Pulse: 111 GEN: NAD, AAOX3 HEENT: NC/AT dryMM, anicteric Chest: CTAB Heart: RRR, nl s1, s2 Abdomen: normal bowel sounds, soft, non tender Assessment and Plan: Proceed with EGD: ASA Grade: ASA 1 - Normal health patient Mallampati: I (soft palate, uvula, fauces, tonsillar pillars visible) Sedation plan: Moderate Conscious sedation Risks and benefits of the procedure were discussed with the patient. Consent has been signed. documented in this encounter Plan of Treatment Not on filedocumented as of this encounter Procedures Procedure Name Priority Date/Time Associated Diagnosis Comme nts SURGICAL PATHOLOGY Routine 04/13/2016 3:49 PM Res ults for this REPORT EDT procedure are i n the results section. SPECIMEN TO Routine 04/13/2016 3:49 PM Results f or this PATHOLOGY EDT procedure are i n the results section. SPECIMEN TO Routine 04/13/2016 3:49 PM Results f or this PATHOLOGY EDT procedure are i n the results section. SPECIMEN TO Routine 04/13/2016 3:49 PM Results f or this PATHOLOGY EDT procedure are i n the results section. SPECIMEN TO Routine 04/13/2016 3:49 PM Results f or this PATHOLOGY EDT procedure are i n the results section. LUZ PLACEMENT 04/13/2016 3:09 PM Dysphagia, EDT unspecified type EGD WITH BIOPSY 04/13/2016 3:09 PM Dysphagia, (WRVU 2.49) EDT unspecified type UPPER GI ENDOSCOPY Routine 04/13/2016 2:43 PM Res ults for this EDT procedure are i n the results section. documented in this encounter Results Surgical Pathology Report (04/13/2016 3:49 PM EDT) Component Value Ref Test Analysis Performed At [facility] Method Time Signature Surgical [id number] ? Location: ; [facility]; [facility] Report The signing pathologist has (i) examined the relevant preparation(s) for the [facility] specimen(s) and (ii) rendered or confirmed the diagnosis(es) . HOSPITAL LABORATORY . ?Surgic al Pathology DIAGNOSIS A - Distal esophagus, biopsy: - Lymphocytic esophagitis ?? (see Note). - Focal ??active esophagitis compatible with reflux etiology . Note: Basal hyperplasia and elongated stromal papillae are present focally, consistent with a component of reflux esophagitis. ?Immunostaining shows that intraepithelial CD8-positiv e T-cells significantly outnumber CD4-positive T- cells. ? Increased intraepithelial lymphocytes with CD8 T-cell predominance have been reported in association wit h reflux esophagitis and primary motility disorders. B - Mid esophagus, biopsy: - Esophageal squamous mucosa negative for diagnostic abnorma lity. C - Duodenum, biopsy: - ??Duodenal mucosa, negative for diagnostic abnormality ??. D - Stomach, biopsy: - Antrum-type and body/fundi c-type mucosa, negative for diagnostic abnormality. 04/16/16 AAY 04/17/16 Verified by: ? Josue Sparks MD ?Pathologist ?(Electronic Signature ) The attending pathologist whose signature appears on this re port has reviewed all diagnostic slides and has edited the gross and/ or microscopic portion of the report in chanel dering the final pathologic diagnosis. ADDITIONAL STUDIES Immunohistochemistry Studies: Formalin-fixed, paraffin-emb edded tissue sections are studied using the polymer technique with appropriate positive and negative controls. ?These IHC studies provide the pathologist [facility] adjunctive diagnostic information. Antibody specificity has been verified by testin g antibodies on a series of in-house tissues with known immunohistochemical perform ance characteristics. The clinical interpretation of any antibody positive stain ing or its absence is evaluated within the context of clinical presentation, morp hology, histopathological criteria and other diagnostic tests. Block ? Antibody ?Result (Positive /Negative) A1 ? CD4 and CD8 ?CD8-predominant intraepithelial lymphocytes CLINICAL INFORMATION Specimen Submitted: A - Distal esophagus bx eval for eoe B - Mid esophageal bx eval for eoe C - Duodenal bx eval for celiac D - Gastric biopsies eval for h pylori Clinical History: Dyspepsia . CLINICAL INFORMATION Clinical Diagnosis: A - Evaluate for EOE B - Evaluate for EOE C - Celiac disease D - Evaluate for H. pylori SPECIMEN PROCESSING A - Labeled/Fixative: Distal esophageal biopsy, formalin. Quantity/Size: Two, 0.3 cm. Tissue Description: Soft, [place]-pink tissue. Sections/Processing: (T1) B - Labeled/Fixative: Esophageal biopsy, formalin. Quantity/Size: Three, 0.3-0.5 cm. Tissue Description: Soft, [place]-pink tissue, wispy Sections/Processing: (T1) C - Labeled/Fixative: Duodenal biopsy, formalin. Quantity/Size: Multiple, 0.2-0.3 cm. Tissue Description: Soft, [place]-pink tissue. Sections/Processing: (T2) D - Labeled/Fixative: Patient demographics, formalin. Quantity/Size: Four, 0.2-0.5 cm. Tissue Description: Soft, [place]-pink tissue. Sections/Processing: (T1) ??pps Specimen (Source) Anatomical Collection Method Collection Time Re ceived Time Location / / Volume Laterality 04/13/2016 3:49 PM EDT Jayro Chavez MD PATHOLOGY/CYTOLOGY ORDERABLE S Performing Organization Address City/[facility]/[place] [address] Specimen to Pathology (surgical or derm) (04/13/2016 3:49 PM EDT) Specimen Anatomical Collection Method Collection Time Receive d Time (Source) Location / / Volume Laterality AP Specimen 04/13/2016 3:49 PM 6 3:49 EDT PM EDT Narrative [facility] - 04/13/2016 3:49 PM EDT Specimen requisition ordered. ??Separate Pathology report to follow Jayro Chavez MD PATHOLOGY/CYTOLOGY ORDERABLE S Performing Organization Address City/[facility]/[place] [address] Specimen to Pathology (surgical or derm) (04/13/2016 3:49 PM EDT) Specimen Anatomical Collection Method Collection Time Receive d Time (Source) Location / / Volume Laterality AP Specimen 04/13/2016 3:49 PM 6 3:49 EDT PM EDT Narrative [facility] OR - 04/13/2016 3:49 PM EDT Specimen requisition ordered. ??Separate Pathology report to follow Jayro Chavez MD PATHOLOGY/CYTOLOGY ORDERABLE S Performing Organization Address City/[facility]/[place] [address] Specimen to Pathology (surgical or derm) (04/13/2016 3:49 PM EDT) Specimen Anatomical Collection Method Collection Time Receive d Time (Source) Location / / Volume Laterality AP Specimen 04/13/2016 3:49 PM 6 3:49 EDT PM EDT Narrative [facility] OR - 04/13/2016 3:49 PM EDT Specimen requisition ordered. ??Separate Pathology report to follow Jayro Chavez MD PATHOLOGY/CYTOLOGY ORDERABLE S Performing Organization Address City/[facility]/[place] [address] Specimen to Pathology (surgical or derm) (04/13/2016 3:49 PM EDT) Specimen Anatomical Collection Method Collection Time Receive d Time (Source) Location / / Volume Laterality AP Specimen 04/13/2016 3:49 PM 6 3:49 EDT PM EDT Narrative [facility] OR - 04/13/2016 3:49 PM EDT Specimen requisition ordered. ??Separate Pathology report to follow Jayro Chavez MD PATHOLOGY/CYTOLOGY ORDERABLE S Performing Organization Address City/[facility]/[place] [address] UPPER GI ENDOSCOPY (04/13/2016 2:43 PM EDT) Component Value Ref Test Analysis Performed At [facility] Method Time Signature UPPER GI [facility] PROVATION ENDOSCOPY Endoscopy Patient Name: April Chavira ? Procedure Date: 04/13/2016 2:43 PM ? Date of : 1990 ? Age: 25 ? Order #: [id number] ? Procedure: ? Upper GI endoscopy Indications: ? Heartburn Patient Profile: ? This is a 25 year old female. Refer ? to note in patient chart for ? documentation of history and physical. Providers: ? Kunal Villalba, R N, ? Sole Salazar, Home Therapy Teacher Referring MD: ?Provider Unknown, MD Medicines: ? Fentanyl 150 micrograms IV, Midazo desouza ? 5 mg IV Complications: ? No immediate complications. Procedure: ? Pre-Anesthesia Assessment: ? - Prior to the procedure, a H istory ? and Physical was performed, a nd ? patient medications, allergie s and ? sensitivities were reviewed. The ? patient's tolerance of previo us ? anesthesia was reviewed. ? - The risks and benefits of t he ? procedure and the sedation op tions ? and risks were discussed with the ? patient. All questions were a nswered ? and informed consent was obta ined. ? - Patient identification and proposed ? procedure were verified prior to the ? procedure by the physician an d the ? nurse. The procedure was yong sung in ? the pre-procedure area in the ? procedure room in the endosco suite. ? - ASA Grade Assessment: I - A normal, ? healthy patient. ? - The anesthesia plan was to use ? moderate sedation/analgesia ? (conscious sedation). ? - The heart rate, respiratory rate, ? oxygen saturations, blood pre ssure, ? adequacy of pulmonary ventila tion, ? and response to care were mon itored ? throughout the procedure. ? The procedure, indications, b enefits, ? risks and alternatives were e xplained ? to the patient. Specifically ? discussed were potential ? complications including, but not ? limited to, bleeding, perfora tion, ? infection, missing a cancer, and ? adverse medication reactions. The ? Endoscope was introduced thro ugh the ? mouth, and advanced to the se cond ? part of duodenum. The patient ? tolerated the procedure well. The ? upper GI endoscopy was accomp lished ? with ease. The patient tolera zaid the ? procedure well. ? Findings: ? The examined esophagus was normal. Mid and distal ? esophageal biopsies taken to evaluate for ? eosinophilic esophagitis. ? The Z-line was regular and was found 38 cm from the ? incisors. ? The entire examined stomach was normal. Biopsies were ? taken with a cold forceps for Helicobacter pylori ? testing. ? The examined duodenum was normal. Biopsies for ? histology were taken with a cold forceps for for ? evaluation of celiac disease. ? Impression: ?- Normal esophagus. Mid and distal ? esophageal biopsies taken to evaluate ? for eosinophilic esophagitis. ? - Z-line regular, 38 cm from the ? incisors. ? - Normal stomach. Biopsied. ? - Normal examined duodenum. B iopsied. ? LUZ capsule placed at 32 cm from ? incisors (6 cm from gastroeso phageal ? junction) Recommendation: ?- Discharge patient to home (with ? escort). ? - Continue to adhere to instr uctions ? provided, continue medication s as ? prescribed ? - Follow up with me in clinic ? Jayro Chavez, 04/13/2016 3:33:39 PM Number of Addenda: 0 Note Initiated On: 04/13/2016 2:43 PM Specimen (Source) Anatomical Collection Method Collection Time Re ceived Time Location / / Volume Laterality 04/13/2016 2:43 PM EDT Provider Unknown GENERAL SURGICAL ORDERABLES Performing Organization Address City/State/ZIP Code Phon e Number PROVATION documented in this encounter Visit Diagnoses Not on filedocumented in this encounter Administered Medications Inactive Administered Medications - up to 3 most recent administrations Medication Order MAR Action Action Date Dose Rate Site lactated ringers infusion New Bag 04/13/2016 3:00 PM EDT 50 mL/hr 50 mL/hr 50 mL/hr, Intravenous, CONTINUOUS, Starting on Sat04/13/16 at 1500, Until Sat04/13/16 at 1557, Endoscopy (Day of Procedure) documented in this encounter Active and Recently Administered Medications Times are shown in EDT. Continuous Medication Order 04/11/2016 04/12/2016 04/13/2016 lactated ringers infusion (CANCELED) 1500 (New Bag - Provider: Anaya Montes RN) 50 mL/hr, at 50 mL/hr, Intravenous, CONT INUOUS, Starting Sat04/13/16 at 1500, Until Sat04/13/16 at 1557, Endo (Day of Procedure) PRN Medication Order 04/11/2016 04/12/2016 04/13/2016 benzocaine (TOPEX) 20 % oral spray (CANCELED) 1512 (Given - Provider: Kunal Paul RN) ONCE PRN, Starting Sat04/13/16 at 1512, Intra-Operative (Intra-Pr ocedure) fentaNYL 50 mcg/mL multi-dose injection (CANCELED) 1512 (Given - Provider: Kunal Paul RN)1514 (Given - Provider: Kunal Paul, RN)1516 (Given - Provider: Kunal Paul RN) ONCE PRN, Starting Sat04/13/16 at 1512, U ntil Sat04/13/16 at 1809, Intra-Operative (Intra-Procedure), Routine midazolam (PF) (VERSED) 1 mg/mL multi-dose injection (CANCELED) 1512 (Given - Provider: Kunal Paul RN)1514 (Given - Provider: Kunal Paul, RN)1516 (Given - Provider: Kunal Paul, RN)1518 (Given - Provider: Kunal Paul, RN) ONCE PRN, Starting 04/13/16 at 1512, U ntil 04/13/16 at 1809, Intra-Operative (Intra-Procedure), Routine documented in this encounter Care Teams Cigar Head Puncher Relationship Specialty Start Date End Date Abi Kulkarni, APPEALS ANALYST PCP - General Family Medicine 04/13/16 06/23/18 documented as of this encounter
--- OUTSIDE RECORDS SUMMARY | 2022-05-21 17:05 | XMS_ITS | Encounter Summary ---
:1990 Author Organization [facility] [place] [address] Care Team Providers Name Role Phone Abi Kulkarni APRN Primary Care Provider Reason for Visit Reason Onset Date Comments Other 04/30/2016 Encounter Details Date Type Department Care Team Description 04/30/[address] [facility] Akbar Dupree, [place] [address] Social History Tobacco Use Types Packs/Day Years Used Date Current Every Day Smoker Cigarettes 0.5 Alcohol Use Standard Drinks/Week Comments No 0 (1 standard drink = 0.6 oz pure alcoho l) Sex Assigned at Date Recorded Not on file documented as of this encounter Miscellaneous Notes Telephone Encounter - Akbar Dupree, RN - 04/30/2016 3:05 PM EDT Patient calls, asks for abdominal X-ray results (04/18/16) and reports blood in my bowel movements. Returned call to patient, read results/impressions from 04/18/16 x-ray, elicited a more specific description of blood in my bowel movements. Patient reports that there was only a single instance of bright red blood. Blood embedded in hard stools, no diffusion into toilet bowl water. Reassurred patient this is likely nothing to worry about, advised patient to continue to monitor and discuss with on 05/01/16 (here for new Whitt capsule placement). documented in this encounter Plan of Treatment Not on filedocumented as of this encounter Visit Diagnoses Not on filedocumented in this encounter Care Teams Curator Relationship Specialty Start Date End Date Abi Kulkarni APRN PCP - General Family Medicine 04/13/16 06/23/18 documented as of this encounter
--- OUTSIDE RECORDS SUMMARY | 2022-05-21 17:05 | XMS_ITS | Encounter Summary ---
:1990 Author Organization [facility] Address [address] [place] [address] Care Team Providers Name Role Phone Abi [...] Expiration Date Visits Requ ested Visits Authorized [id number] 1 1 Encounter Details Date Type Department Care Team Description 04/13/2016 Procedure visit Gastroenterology at [facility] Joon, Gastroesophageal reflux [facility] [place]-Ju disease, [place] [address] LEE ANN Sevilla presence not specified [phone] Social History Tobacco Use Types Packs/Day Years Used Date Current Every Day Smoker Cigarettes 0.5 Alcohol Use Standard Drinks/Week Comments No 0 (1 standard drink = 0.6 oz pure alcoho l) Sex Assigned at Date Recorded Not on file documented as of this encounter Progress Notes Laquita Flores RN - 04/13/2016 3:32 PM EDT Luz teaching completed prior to procedures. Patient verbalized understanding of Luz procedure and use of the charge entry. At 3:28 Luz capsule deployed following EGD with Dr. Chavez. Placed at 32cm from incisors without difficulty. Study being performed on Prilosec 40mg daily. First PH- 7.6 documented in this encounter Plan of Treatment Not on filedocumented as of this encounter Visit Diagnoses Diagnosis Gastroesophageal reflux disease, esophag itis presence not specified documented in this encounter Care Teams Manager Law Relationship Specialty Start Date End Date Abi Kulkarni APRN PCP - General Family Medicine 04/13/16 06/23/18 documented as of this encounter
--- OUTSIDE RECORDS SUMMARY | 2022-05-21 17:05 | XMS_ITS | Encounter Summary ---
:1990 Author Organization [facility] [place] [address] Care Team Providers Name Role Phone Abi Kulkarni APRN Primary Care Provider Encounter Details Date Type Department Care Team Description 04/14/2016 Telephone Gastroenterology at [facility] Malgorzata Hwang [facility] [place] [address] [facility] [phone] GASTROENTEROLOGY DEPT [place], [place] [address] (Wo rk) Social History Tobacco Use Types Packs/Day Years Used Date Current Every Day Smoker Cigarettes 0.5 Alcohol Use Standard Drinks/Week Comments No 0 (1 standard drink = 0.6 oz pure alcoho l) Sex Assigned at Date Recorded Not on file documented as of this encounter Miscellaneous Notes Telephone Encounter - Malgorzata Hwang - 04/14/2016 3:55 PM EDT I received a call from Ej. She had a Whitt placed yesterday and it no longer is a 1 on the screenand she is not sure whether it is reading her. I instructed her to use it like it is reading and then to call the [facility] lab on Saturday. documented in this encounter Plan of Treatment Not on filedocumented as of this encounter Visit Diagnoses Not on filedocumented in this encounter Care Teams Remodeler Relationship Specialty Start Date End Date Abi Kulkarni APRN PCP - General Family Medicine 04/13/16 06/23/18 documented as of this encounter
--- OUTSIDE RECORDS SUMMARY | 2022-05-21 17:05 | XMS_ITS | Encounter Summary ---
:1990 Author Organization [facility] Address [facility] [address] [place] [address] Care Team Providers Name Role Phone Abi [...] Expiration Date Visits Requ ested Visits Authorized [id number] 1 1 Encounter Details Date Type Department Care Team Description 04/13/2016 Surgery Gastroenterology at [facility] Jayro Chavez, EGD WITH BIOPSY ([facility] Shaun odell MD [address]) [place] [address] [facility] [phone] GASTROENTEROLOGY DEPT [place], [place] [address] Social History Tobacco Use Types [...] documented in this encounter Discharge Instructions Discharge InstructionsLariviere, Kirsty, RN - 04/13/2016 3:46 PM EDT UPPER [...] Other Instructions Be sure to carry your bee tender within 3 feet at all times . [...] better as expected. Saturday-Saturday Same Day Endo [phone] Otherwise contact [phone] and ask to speak to the pipe bowl paint trimmer it application support analyst Brooklyn Dupree RN [phone] if any problems with bee tender Follow-up care is a paredes part of [...] Component Value Ref Test Analysis Performed At [facility] Method Time Signature Surgical [id number] ? Location: ; [facility]; [facility] Pathology POWELL Report The signing pathologist has (i) examined [...] controls. ?These IHC studies provide the pathologist [facility] adjunctive diagnostic information. Antibody specificity has [...] MD PATHOLOGY/CYTOLOGY ORDERABLE S Performing Organization Address City/[facility]/[place] [address] Specimen to Pathology (surgical or derm) (04/13/2016 3:49 PM EDT) Specimen Anatomical Collection Method Collection Time Receive d Time (Source) Location / / Volume Laterality AP Specimen 04/13/2016 3:49 PM 201 6 3:49 EDT PM EDT Narrative [facility] - 04/13/2016 3:49 PM EDT Specimen requisition ordered. ??Separate Pathology report to follow Jayro Chavez MD PATHOLOGY/CYTOLOGY ORDERABLE S Performing Organization Address City/[facility] [place] [address] Specimen to Pathology (surgical or derm) (04/13/2016 3:49 PM EDT) Specimen Anatomical Collection Method Collection Time Receive d Time (Source) Location / / Volume Laterality AP Specimen 04/13/2016 3:49 PM 6 3:49 EDT PM EDT Narrative [facility] - 04/13/2016 3:49 PM EDT Specimen requisition ordered. ??Separate Pathology report to follow Jayro Chavez MD PATHOLOGY/CYTOLOGY ORDERABLE S Performing Organization Address City/State/[place] [address] Specimen to Pathology (surgical or derm) (04/13/2016 3:49 PM EDT) Specimen Anatomical Collection Method Collection Time Receive d Time (Source) Location / / Volume Laterality AP Specimen 04/13/2016 3:49 PM 6 3:49 EDT PM EDT Narrative [facility] - 04/13/2016 3:49 PM EDT Specimen requisition ordered. ??Separate Pathology report to follow Jayro Chavez MD PATHOLOGY/CYTOLOGY ORDERABLE S Performing Organization Address City/[facility]/ZIP Code Phon e Number [address] Specimen to Pathology (surgical or derm) (04/13/2016 3:49 PM EDT) Specimen Anatomical Collection Method Collection Time Receive d Time (Source) Location / / Volume Laterality AP Specimen 04/13/2016 3:49 PM 6 3:49 EDT PM EDT Narrative [facility] - 04/13/2016 3:49 PM EDT Specimen requisition ordered. ??Separate Pathology report to follow Jayro Chavez MD PATHOLOGY/CYTOLOGY ORDERABLE S Performing Organization Address City/State/[place] [address] UPPER GI ENDOSCOPY (04/13/2016 2:43 PM EDT) Component Value Ref Test Analysis Performed At [facility] Range Method Time Signature UPPER GI [facility] PROVATION ENDOSCOPY Endoscopy Patient Name: April Chavira ? Procedure Date: 04/13/2016 2:43 PM ? Date of : 1990 ? Age: 25 ? Order #: [id number] ? Procedure: ? Upper GI endoscopy Indications: ? Heartburn Patient Profile: ? This is a 25 year old female. Refer ? to note in patient chart for ? documentation of history and physical. Providers: ? Kunal Villalba, R N, ? Sole Salazar, Scraper Meat Referring MD: ?Provider Unknown, MD Medicines: ? [...] to the ? procedure by the physician tano hernandez the ? nurse. The procedure was veri fied in ? the pre-procedure area in the [facility] ? - ASA Grade Assessment: I [...] PROVATION documented in this encounter Visit Diagnoses Diagnosis Dysphagia, unspecified type documented in this encounter Administered Medications Inactive Administered Medications - up to 3 most recent administrations Medication Order MAR Action Action Date Dose Rate Site benzocaine (TOPEX) 20 % oral spray Given 04/13/2016 3:12 PM EDT 3 each ONCE PRN, Starting on Sat04/13/16 at 1512, Until Sat04/13/16 at 1809, Intra-Operative (Intra-Procedure) fentaNYL 50 mcg/mL multi-dose injection Given 04/13/2016 3:16 PM EDT 50 mcg ONCE PRN, Starting on Sat04/13/16 at 1512, Until Sat04/13/16 at 1809, Intra-Operative (Intra-Procedure), Routine Given 04/13/2016 3:14 PM EDT 50 mcg Given 04/13/2016 3:12 PM EDT 50 mcg lactated ringers infusion New Bag 04/13/2016 3:00 PM EDT 50 mL/hr 50 mL/hr 50 mL/hr, Intravenous, CONTINUOUS, Starting on Sat04/13/16 at 1500, Until Sat04/13/16 at 1557, Endoscopy (Day of Procedure) midazolam (PF) (VERSED) 1 mg/mL multi-dose Given 04/13/2016 3:18 PM EDT 1 mg injection ONCE PRN, Starting on Sat04/13/16 at 1512, Until Sat04/13/16 at 1809, Intra-Operative (Intra-Procedure), Routine Given 04/13/2016 3:16 PM EDT 1 mg Given 04/13/2016 3:14 PM EDT 1 mg documented in this encounter Active and Recently Administered Medications Times are shown in EDT. Continuous Medication Order 04/11/2016 04/12/2016 04/13/2016 lactated ringers infusion (CANCELED) 1500 (New Bag - Provider: Anaya Montes RN) 50 mL/hr, at 50 mL/hr, Intravenous, CONT INUOUS, Starting 04/13/16 at 1500, Until Sat04/13/16 at 1557, Endo (Day of Procedure) PRN Medication Order 04/11/2016 04/12/2016 04/13/2016 benzocaine (TOPEX) 20 % oral spray (CANCELED) 1512 (Given - Provider: Kunal Paul RN) ONCE PRN, Starting Sat04/13/16 at 1512, Intra-Operative (Intra-Pr ocedure) fentaNYL 50 mcg/mL multi-dose injection (CANCELED) 1512 (Given - Provider: Kunal Paul RN)1514 (Given - Provider: Kunal Paul RN)1516 (Given - Provider: Kunal Paul RN) ONCE PRN, Starting 04/13/16 at 1512, U ntil Sat04/13/16 at 1809, Intra-Operative (Intra-Procedure), Routine midazolam (PF) (VERSED) 1 mg/mL multi-dose injection (CANCELED) 1512 (Given - Provider: Kunal Paul RN)1514 (Given - Provider: Kunal Paul RN)1516 (Given - Provider: Kunal Paul RN)1518 (Given - Provider: Kunal Paul RN) ONCE PRN, Starting 04/13/16 at 1512, U ntil Sat04/13/16 at 1809, Intra-Operative (Intra-Procedure), Routine documented in this encounter Care Teams Trial Judge Relationship Specialty Start Date End Date Abi Kulkarni APRN PCP - General Family Medicine 04/13/16 06/23/18 documented as of this encounter
--- OUTSIDE RECORDS SUMMARY | 2022-05-21 17:05 | XMS_ITS | Encounter Summary ---
:1990 [place] [address] Care Team Providers Name Role Phone Andrewzeus Abi Louis APRN Primary Care Provider Reason for Visit Reason Comments Follow-up Encounter Details Date Type Department Care Team Description 04/18/2016 Office Visit Gastroenterology at [facility] Jayro Chavez Gastroesophageal reflux [facility] [place] [address] [facility] esophagitis [phone] [place] [address] Social History Tobacco Use Types Packs/Day Years Used Date Current Every Day Smoker Cigarettes 0.5 Alcohol Use Standard Drinks/Week Comments No 0 (1 standard drink = 0.6 oz pure alcoho l) Sex Assigned at Date Recorded Not on file documented as of this encounter Last Filed Vital Signs Vital Sign Reading Time Taken Comments Blood Pressure 128/69 04/18/2016 8:25 AM EDT Pulse 111 04/18/2016 8:25 AM EDT Temperature - - Respiratory Rate - - Oxygen Saturation - - Inhaled Oxygen Concentration - - Weight 57.9 kg (127 lb 9.6 oz) 04/18/2016 8:25 AM EDT Height 165.1 cm (5' 5) 04/18/2016 8:25 AM EDT Body Mass Index 21.23 04/18/2016 8:25 AM EDT documented in this encounter Progress Notes Jayro Chavez MD - 04/18/2016 8:45 AM EDT [facility] Section of Gastroenterology and Hepatology Outpatient Follow Up Consultation Reason for Visit: globus, nausea, dysphagia Referred by , Dr. Kristy Chen Paul Chavira is a 25 y.o. female with past medical history of active tobacco use who presents for a second opinion for vague constellation of symptoms entailing nausea, globus, dysphagia, weight loss, early satiety, bloating and reflux despite Omeprazole 40 mg daily. #reflux/globus/dyspepsia: -Since she was [age] years old [...] since. She underwent an upper endoscopy at [facility] in October and was told normal. After [...] forceps for for evaluation of celiac disease. -04/26: LUZ test: The patient will be contacted and repeat Luz pH capsule placement can be performed in the laboratory after high-resolution esophageal manometry. The patient will not be charged forthe second Luz pH capsule; however, preauthorization from the insurance company will be obtained for the high-resolution esophageal manometry, which is important to accurately localize the LES. Alternatively, the patient could undergo impedance-pH testing. Again, that is best performed after high-resolution esophageal manometry to accurately localize the LES. The patient would not be charged for the impedance-pH test. 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 mirtazapine (REMERON) 7.5 mg Tablet 0 ??? LORazepam (ATIVAN) 0.5 mg Tablet 0 ??? omeprazole (PRILOSEC) 40 mg Capsule, Delayed Release(E.C.) 0 ??? TB-Bdn-Dhxnt Acid-Lutein 500-250 mcg Tablet, Chewable Take by mouth. ??? promethazine (PHENERGAN) 25 mg Tablet 0 No current facility-administered medications for this visit. Allergies Allergen Reactions ??? Zoloft [Sertraline] Nausea And Vomiting Physical Examination: BP 128/69 (BP Location (NBP): Right arm, Patient Position: Sitting, BP Cuff Sizes: Adult (25-34 cm))Comment (Patient Position): sitting Pulse 111 Ht 165.1 cm (5' 5) Wt 57.9 kg (127 lb 9.6 oz) LMP 04/11/2016 BMI 21.23 kg/m2 General:Pleasant, cooperative, NAD, WN/WD HEENT: NC/AT, PERRL, anicteric sclera, MMM, no erythema or exudate Neck: soft, supple, no cervical LAD Chest: CTA bilaterally, no wheeze, rale or rhonchi CVS: Regular rate and rhythm, normal s1/s2, no murmur, rub or gallop ABD: soft, non-tender, non-distended, normal active bowel sounds. No hepatosplenomegaly appreciated Rectal: Deferred Extremities: Warm and well perfused. No clubbing, cynanosis or edema Skin:No rash or lesion Neuro: AAOx3, Grossly non-focal. Additional Testing: Reviewed available labs, imaging and endoscopy results in EDH/CIS as well as Scan Docs tab. IMPRESSION: April Chavira is a 25 y.o. female with past medical history of active tobacco use who presents for a second opinion for vague constellation of symptoms entailing nausea, globus, dysphagia,weight loss, early satiety, bloating and reflux despite Omeprazole 40 mg daily. Work up thus far hasentailed an upper endoscopy in October ([facility]) per patient reported as normal, recent EGD with distal esophagus, biopsy: Lymphocytic esophagitis Focal ??active esophagitis compatible with reflux etiology. (Mid esophagus, biopsy: Esophageal squamous mucosa negative for diagnostic abnormality). Duodenum, biopsy: ??Duodenal mucosa, negative for diagnostic abnormality ??. RECOMMENDATIONS: -repeat LUZ pH (given early detachment) study on medications to assess for pathologic reflux/HREM -Amitriptyline 25 mg QHS for neuropathic pain -Omeprazole daily -Encouraged smoking cessation -Small frequent meals, elevate head of bed, no eating 3 hours before bedtime Pending results will assess symptoms further with a 4 hour gastric emptying scan. Close follow up. Jayro Chavez MD [place] [address] P: [phone] F: [phone] CC ABI RUSS APRN [address] [place] [address] No referring provider defined for this encounter. documented in this encounter Plan of Treatment Not on filedocumented as of this encounter Results XR Abdomen 1 View (GENERIC) (04/18/2016 11:00 AM EDT) Anatomical Region Laterality Modality Abdomen N/A Digital Radiography Specimen (Source) Anatomical Location Collection Method / Collectio n Time Received Time / Laterality Volume Narrative 04/18/2016 11:23 AM EDT EXAMINATION: XR ABDOMEN ONE VIEW CLINICAL HISTORY: LUZ capsule, eval if still adherant to distal esophagus, in order to place another one/need confirma tion TECHNIQUE: Supine view of the lower ches t and abdomen COMPARISON: None FINDINGS: A metallic device, consistent with a cap brandee projects in the expected location of the lower third of the esophagus. The bowel gas pattern is normal. The lung bases are clear. ?? Procedure Note Chance Haider MD - 04/18/2016Format ting of this note might be different from the original. EXAMINATION: XR ABDOMEN ONE VIEW CLINICAL HISTORY: LUZ capsule, eval if still adherant to distal esophagus, in order to place another one/need confirma tion TECHNIQUE: Supine view of the lower ches t and abdomen COMPARISON: None FINDINGS: A metallic device, consistent with a cap brandee projects in the expected location of the lower third of the esophagus. The bowel gas pattern is normal. The lung bases are clear. Jayro Chavez MD IMG DX ORDERABLES documented in this encounter Visit Diagnoses Diagnosis Gastroesophageal reflux disease without esophagitis Esophageal reflux Gastroesophageal reflux disease without esophagitis Esophageal reflux documented in this encounter Care Teams Linux Network Engineer Relationship Specialty Start Date End Date Abi Russ, PRICE CHECKER PCP - General Family Medicine 04/13/16 06/23/18 documented as of this encounter
--- OUTSIDE RECORDS SUMMARY | 2022-05-21 17:05 | XMS_ITS | Encounter Summary ---
:1990 Author Organization [facility] [place] [address] Care Team Providers Name Role Phone Abi Kulkarni APRN Primary Care Provider Encounter Details Date Type Department Care Team Description 05/01/2016 Hospital Encounter XRay at [facility] Jayro Chavez MD Dyspepsia [address] [place] [address] [place] [address] GASTROENTEROLOGY DEPT [place], [place] [address] (Wo rk) Social History Tobacco [...] by 0 2015 mg Tablet mouth nightly. desipramine (NOPRAMIN) 10 Take 1 tablet by 14 tablet 3 06/0 06/201609/01/2018 mg Tablet mouth nightly. promethazine (PHENERGAN) 0 02/16/2016 09/01/2018 25 mg Tablet LORazepam (ATIVAN) 0.5 mg 0 02/14/2016 09/01/2018 Tablet omeprazole (PRILOSEC) 40 0 01/25/2016 09/01/2018 mg Capsule, Delayed Release(E.C.) documented as of this encounter Plan of Treatment Not on filedocumented as of this encounter Procedures Procedure Name Priority Date/Time Associated Diagnosis Comme nts XR ABDOMEN 1 VIEW Routine 05/01/2016 12:48 PM Dyspepsia Res ults for this EDT procedure are i n the results section. documented in this encounter Results XR Abdomen 1 View (GENERIC) (05/01/2016 12:48 PM EDT) Anatomical Region Laterality Modality Abdomen N/A Digital Radiography Specimen (Source) Anatomical Location Collection Method / Collectio n Time Received Time / Laterality Volume Narrative 05/01/2016 1:12 PM EDT EXAMINATION: XR ABDOMEN ONE VIEW CLINICAL HISTORY: pls ensure luz capsu le no longer in place, also comment if LUZ capsule passed SB/colon as well. t hnks TECHNIQUE: A single AP view of the abdom en was obtained. COMPARISON: 04/18/2016 FINDINGS: 2 views of the abdomen covering the thor acic vertebral level T12 through the symphysis pubis. The retained capsule wa s previously noted in the mid thoracic spine level. No evidence for retained ra diopaque capsule. No metallic foreign body identified. Bulky retained stool th roughout the colon with stool in the rectosigmoid region. ?? Procedure Note Soha Kaye MD - 05/01/2016Forma tting of this note might be different from the original. EXAMINATION: XR ABDOMEN ONE VIEW CLINICAL HISTORY: pls ensure luz capsu le no longer in place, also comment if LUZ capsule passed SB/colon as well. t hnks TECHNIQUE: A single AP view of the abdom en was obtained. COMPARISON: 04/18/2016 FINDINGS: 2 views of the abdomen covering the thor acic vertebral level T12 through the symphysis pubis. The retained capsule wa s previously noted in the mid thoracic spine level. No evidence for retained ra diopaque capsule. No metallic foreign body identified. Bulky retained stool th roughout the colon with stool in the rectosigmoid region. Jayro Chavez MD IMG DX ORDERABLES documented in this encounter Visit Diagnoses Diagnosis Dyspepsia Dyspepsia and other specified disorders of function of stomach documented in this encounter Care Teams Warehouse Technician Relationship Specialty Start Date End Date Abi Kulkarni APRN PCP - General Family Medicine 04/13/16 06/23/18 documented as of this encounter
--- OUTSIDE RECORDS SUMMARY | 2022-05-21 17:05 | XMS_ITS | Encounter Summary ---
:1990 Author Organization [facility] [place] [address] Care Team Providers Name Role Phone Abi Kulkarni APRN Primary Care Provider Encounter Details Date Type Department Care Team Description 05/01/2016 Orders Only [place] [facility] [place] [address] GASTROENTEROLOGY DEPT [place], [place] [address] (Wo rk) Social History Tobacco [...] other specified disorders of function of stomach Dyspepsia Dyspepsia and other specified disorders of function of stomach documented in this encounter Care Teams Supervisor Die Casting Relationship Specialty Start Date End Date Abi Kulkarni APRN PCP - General Family Medicine 04/13/16 06/23/18 documented as of this encounter
--- OUTSIDE RECORDS SUMMARY | 2022-05-21 17:05 | XMS_ITS | Encounter Summary ---
:1990 Author Organization [facility] [place] [address] Care Team Providers Name Role Phone Unknown Primary Care Provider Unavailable Reason for Visit Reason Comments GI Problem Consultation (Routine) - Closed Specialty Diagnoses / Procedures Referred By Contact Refer red To Contact Gastroenterology Diagnoses globus sensation Shahram Ferrari, [facility] Gastro 4l Procedures consult DO [address] [address] [place] [address] Phone: Fax: Referral ID Status Reason Start Date Expiration Date Visits Requ ested Visits Authorized [id number] Closed 02/07/2016 02/06/2017 1 1 Encounter Details Date Type Department Care Team Description 03/08/2016 [place] Visit [place] [facility] [place]ro Chavez Dysphagia, [facility] Shaun Damon [place] [address] [facility] [phone] C[place] [address] Social History Tobacco Use Types Packs/Day Years Used Date Current Every Day Smoker Cigarettes 0.5 Sex Assigned at Date Recorded Not on file documented as of this encounter Last Filed Vital Signs Vital Sign Reading Time Taken Comments Blood Pressure 146/87 03/08/2016 10:52 AM EDT Pulse 128 03/08/2016 10:52 AM EDT Temperature - - Respiratory Rate - - Oxygen Saturation - - Inhaled Oxygen Concentration - - Weight 52.6 kg (116 lb) 03/08/2016 10:52 AM EDT Height 165.1 cm (5' 5) 03/08/2016 10:52 AM EDT Body Mass Index 19.3 03/08/2016 10:52 AM EDT documented in this encounter Progress Notes Jayro Chavez MD - 03/08/2016 11:07 AM EDT [facility] Section of Gastroenterology and Hepatology Outpatient Consultation Reason for Visit: globus, nausea, dysphagia Referred by Shahram Ferrari Dr. Gerish History of Present Illness: April Chavira is a 25 y.o. female with past medical historyof active tobacco use who presents for a second opinion for vague constellation of symptoms entailing nausea, globus, dysphagia, weight loss, early satiety, bloating and reflux despite Omeprazole 40 mgdaily. Per patient is frustrated with her overall symptoms. Having difficulties since she was [age] yearsold which started with morning nausea upon awakening. At times causing her to have emesis. In July she noted a globus sensation associated with dysphagia. She has been on Omeprazole 40 mg twice daily. Which did help manage her nausea. She states if she misses a single dose will noted worsening nausea. She has to minimize her symptoms put herself on a liquid/puree diet since. She underwent an upper endoscopy at [facility] in October and was told normal. After eating feels food stuck sensation/globus after eating. At times feels throat closing sensation. Denies regurgitation. At times acid burp. Den ies classic heartburn symptoms. Now back down to Omeprazole 40 mg daily (half hour before supper). Denies oral ulcers, regular BM's. Grazing throughout the day. Drinks an ensure. Denies history of asthma, seasonal allergies. Denies known food triggers. Denies nasal congestion. Denies cough. Denies hoarseness. At times bloating, early satiety. Weight significantly lower. Nausea main limiting factor. Denies marijuana use. 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 No past surgical history on file. Social History: reports that she has been smoking Cigarettes. She has been smoking about 0.50 packs per day. She does not have any smokeless tobacco history on file. Family History: family history is not on file. Current Outpatient Prescriptions Medication Sig Dispense Refill ??? promethazine (PHENERGAN) 25 mg Tablet 0 ??? mirtazapine (REMERON) 7.5 mg Tablet 0 ??? LORazepam (ATIVAN) 0.5 mg Tablet 0 ??? omeprazole (PRILOSEC) 40 mg Capsule, Delayed Release(E.C.) 0 ??? NM-Lop-Jfboq Acid-Lutein 500-250 mcg Tablet, Chewable Take by mouth. No current facility-administered medications for this visit. Allergies Allergen Reactions ??? Zoloft [Sertraline] Nausea And Vomiting Physical Examination: BP 146/87 mmHg Pulse 128 Ht 165.1 cm (5' 5) Wt 52.617 kg (116 lb) BMI 19.30 kg/m2 General:Pleasant, cooperative, NAD, WN/WD HEENT: NC/AT, [...] far hasentailed an upper endoscopy in October ([facility]) per patient reported as normal. Differential includesgastroparesis verses functional dyspepsia (although I do not expect weight loss which is alarming) verses severe reflux. RECOMMENDATIONS: -Obtain EGD report from recent upper endoscopy ([facility]) -LUZ pH study on medications to assess for pathologic reflux -Amitriptyline 25 mg QHS for neuropathic pain -Omeprazole daily -Encouraged smoking cessation -Small frequent meals, elevate head of bed, no eating 3 hours before bedtime Pending results will assess symptoms further with a 4 hour gastric emptying scan+/-high resolution esophageal manometry. Close follow up. Jayro Chavez MD Gastroenterology Fellow [place] [id number] P: [phone] F: [phone] CC UNKNOWN None Shahram Ferrari, DO [address] [place] [address] documented in this encounter Plan of Treatment Not on filedocumented as of this encounter Visit Diagnoses Diagnosis Dysphagia, unspecified type documented in this encounter Care Teams Display Director Relationship Specialty Start Date End Date Unknown PCP - General 03/08/16 04/12/16 None documented as of this encounter
--- OUTSIDE RECORDS SUMMARY | 2022-05-21 17:05 | XMS_ITS | Encounter Summary ---
:1990 Author Organization [facility] [place] [address] Care Team Providers Name Role Phone Abi Kulkarni APRN Primary Care Provider Encounter Details Date Type Department Care Team Description 04/18/2016 [place] [facility] Ch[place] Gastroesophageal reflux Encounter 1 [facility] MD Nelson disease without Dr [facility] esophagitis [place], [place] CENTER [address] GASTROENTEROLOG [phone] [place] [address] Social History Tobacco Use Types Packs/Day Years [...] Comme nts XR ABDOMEN 1 VIEW Routine 04/18/2016 11:00 Gastroesophageal re flux Results for this AM EDT disease without procedure ar e in esophagitis the results section. documented in this encounter [...] reflux documented in this encounter Care Teams Agate Setter Relationship Specialty Start Date End Date Abi Klukarni APRN PCP - General Family Medicine 04/13/16 06/23/18 documented as of this encounter
--- OUTSIDE RECORDS SUMMARY | 2022-05-21 17:05 | XMS_ITS | Encounter Summary ---
:1990 [place] [address] Care Team Providers Name Role Phone Unavailable Primary Care Provider Unavailable Encounter Details Date Type Department Care Team Description 12/23/2014 Hospital Encounter Radiology Library [place] [address] [place] [address] [phone] Social History Tobacco Use Types Packs/Day Years Used Date Never Assessed Sex Assigned at Date Recorded Not on file documented as of this encounter Plan of Treatment Not on filedocumented as of this encounter Procedures Procedure Name Priority Date/Time Associated Diagnosis Comme nts FILM LIBRARY Routine 12/23/2014 12:00 AM Results for this STORAGE ONLY MR EST procedure ar e in HEAD the results section. documented in this encounter Results Film Library- Storage Only MR Head (12/23/2014 12:00 AM EST) Specimen (Source) Anatomical Location Collection Method / Collectio n Time Received Time / Laterality Volume Narrative KAYCE FIGUEROA - 09/15/2018 9:31 AM EST This exam is for storage only and is aut o-finalizing. Vero Soriano MD [place] FILM LIBRARY ORDERABLES Performing Organization Address City/State/ZIP Code Phon e Number [facility] [place], [place] documented in this encounter Visit Diagnoses Not on filedocumented in this encounter
--- OUTSIDE RECORDS SUMMARY | 2022-05-21 17:05 | XMS_ITS | Encounter Summary ---
:1990 Author Organization [facility] [place] [address] Care Team Providers Name Role Phone Shad Abi K MAEGD Primary Care Provider Encounter Details Date Type Department Care Team Description 05/01/2016 Tech Visit Gastroenterology at [facility] Mendel Guillen, Gastroesophageal reflux dise ase, esophagitis presence not specified; [facility] Shaun WOODS MD Dysphagia, unspecified type [address] [phone] CENTER GASTROENTEROLOG [place] [address] Social History Tobacco Use Types Packs/Day Years Used Date Current Every Day Smoker Cigarettes 0.5 Alcohol Use Standard Drinks/Week Comments No 0 (1 standard drink = 0.6 oz pure alcoho l) Sex Assigned at Date Recorded Not on file documented as of this encounter Progress Notes Mendel Guillen MD - 05/15/2016 1:14 PM EDT HIGH-RESOLUTION ESOPHAGEAL MANOMETRY April Chavira [address] [facility] [address] : 1990 STUDY DATE: 05-01-2016 PROVIDER: Mendel Guill[place] ([id number]) INDICATION GERD; dysphagia METHODS Stationary esophageal manometry was performed with the ManoScan ESO version 3.0 in a supervised setting after verbal consent and after topical anesthesia to the nares. This system uses 36 individual circumferential solid state sensors spaced 1 cm apart. The outer diameter of the probe is 4.2 mm. Length, resting pressure, pressure inversion point (PIP), and relaxation of the lower esophageal sphincter (LES) was measured. The high pressure zone of the upper esophageal sphincter (UES) was measured. Water swallows were provided after a 6-hn-6-minute accommodation period to assess LES function and function of the esophageal body. FINDINGS LES (lower esophageal sphincter) Distal border of LES identified at 46.1 cm. Proximal border of LES identified at 43 cm. Hiatal hernia present? No Basal pressure respiratory mean pressure 34 mmHg (normal = 15-34 mmHg). Residual mean pressure (integrated relaxation pressure - IRP) 5.6 mmHg (normal = <15 mmHg). BODY OF ESOPHAGUS Water Swallows: 10. Failed: 0%. Transmitted (peristaltic): 100%. Panesophageal pressurization: 0% Premature: 0% Rapid: 20% With large breaks: 0%. With small breaks: 0%. DCI (distal contractile integral): 1860 mmHg-cm-s (normal is 450 to 5000 mmHg-cm-s). Contractile front velocity: 6.6 cm/s (normal is <9.0 cm/s). Intrabolus pressure (average maximum): 10.3 mmHg (normal is <17.0 mmHg). Distal latency: 4.9 UES (upper esophageal sphincter) Distal border of UES identified at 19.2 cm and extended to 16.5 cm. UES basal pressure 111 mmHg (normal = 34-104 mmHg). Residual pressure 5.0 mmHg (normal = <12 mmHg). IMPRESSION 1. Normal LES resting pressure. 2. [...] This is a measure of contractile vigor. Mendel Guillen, PhD, MD svp programmatic tv, [facility] Chief, Section of Gastroenterology and Hepatology [facility] [place] [address] V: [phone] F: [phone] CC/EC: PCP documented in this encounter Plan of Treatment Not on filedocumented as of this encounter Visit Diagnoses Diagnosis Gastroesophageal reflux disease, esophag itis presence not specified Dysphagia, unspecified type documented in this encounter Care Teams Lehr Stripper Relationship Specialty Start Date End Date Abi Kulkarni APRN PCP - General Family Medicine 04/13/16 06/23/18 documented as of this encounter
--- OUTSIDE RECORDS SUMMARY | 2022-05-21 17:05 | XMS_ITS | Encounter Summary ---
:1990 Author Organization [facility] Address [place] [id number] Care Team Providers Name Role Phone Abi Kulkarni APRN Primary Care Provider Encounter Details Date Type Department Care Team Description 05/01/2016 Procedure visit Gastroenterology at [facility] [place] Jayro Chavez, Dyspepsia [facility] Shaun WOODS MD [address] [phone] GASTROENTEROLOGY DEPT [place] [address] Social History Tobacco Use Types Packs/Day Years Used Date Current Every Day Smoker Cigarettes 0.5 Alcohol Use Standard Drinks/Week Comments No 0 (1 standard drink = 0.6 oz pure alcoho l) Sex Assigned at Date Recorded Not on file documented as of this encounter Progress Notes Jayro Chavez MD - 05/11/2016 11:42 AM EDT Not in error documented in this encounter Plan of Treatment Not on filedocumented as of this encounter Visit Diagnoses Diagnosis Dyspepsia Dyspepsia and other specified disorders of function of stomach documented in this encounter Care Teams Oil Refinery Process Technician Relationship Specialty Start Date End Date Abi Kulkarni APRN PCP - General Family Medicine 04/13/16 06/23/18 documented as of this encounter
--- NOTE | 2022-05-21 17:08 | ED.GENADUL_ITS ---
Discharge Plan Disposition Patient Disposition: HOME Condition: Stable Discharge Details Clinical Impression: Abdominal pain Primary Care Provider: Cherri Bonilla ED Provider: Kelli Conrad Home Meds and New Rx's Prescriptions: Continued acetaminophen [Tylenol] 325 MG tablet 325 - 650 mg PO PRN mirtazapine 7.5 MG tablet 15 mg PO HS esomeprazole magnesium [Nexium] 40 mg Capsule,Delayed Release(Dr/Ec) 40 mg PO DAILY ibuprofen 600 mg tablet 600 mg PO Q6H PRNQty: 90 2RF Rx Instructions: take w/ food Discharge Instructions Instructions: Abdominal Pain (ED) Additional Instructions: Ultrasound today shows no evidence for problem with your gallbladder. There is some mild what's called hydronephrosis or fluid back up into the right kidney. No lesions or cysts or kidney stones were seen in the urinary tract. Please keep your scheduled appointment with general surgery as previously scheduled for follow-up. No heavy lifting if possible. Follow up with primary care provider in 3-5 days. Return to ED sooner if any worsening or concerns. Increase oral fluids. Please take Tylenol or Ibuprofen with food every 4-6 hours as needed for pain and swelling. Stand Alone Forms: Work Release Referrals: Cherri Bonilla [Primary Care Provider] - 1 week Discharge Data Discharge Date/Time-TO BE ENTERED AT DEPARTURE: 05/21/22 17:24 Medical Decision Making 31-year-old female presents to the ER with chief complaint of right upper quadrant abdominal pain and a recheck of the ultrasound that she had. Patient was seen on the 19 May for her upper quadrant abdominal pain after having her appendix out approximately a week ago had a CT and urinalysis done and labs. Ultrasound outpatient was ordered. Ultrasound shows mild hydronephrosis no cholelithiasis or evidence of cholecystitis. I discussed the results with the patient who verbalized understanding. Patient is requesting a return to work note which was written. Discussed home care and follow-up she reports she has an appointment on Saturday encouraged her to keep that appointment. This text was generated using [employer] system, please disregard any oddities of phrase or misspellings. Medical Records Medical records reviewed: Yes I reviewed the patient's medical records. Medical records narrative: FINDINGS: There is no ascites evident. LIVER: There are no hepatic lesions evident nor dilatation of intrahepatic ducts. GALLBLADDER/BILIARY: There are no gallstones. No gallbladder wall edema nor pericholecystic fluid. The common hepatic duct isnot dilated, measuring 3-4mm at the level of renata hepatis. PANCREAS: There is no evidence of pancreatic mass nor dilatation of the pancreatic duct. RIGHT KIDNEY:Mild hydronephrosis of the right kidney noted. No solid lesions or cysts noted. No calculi. IMPRESSION: 1. No evidence of cholelithiasis nor dilatation of the biliary tree. 2. There is mild hydronephrosis of the right kidney noted. Requires further investigation 3. There is no ascites. HPI General Mode of arrival: ambulatory . Date/Time Provider Initiated Documentation: 05/21/22 17:04 . Limitations to Documentation: no limitations . Information obtained by: patient, RN notes reviewed and old records reviewed . HPI Narrative: 31-year-old female presents to the ER with chief complaint of right upper quadrant abdominal pain and a recheck of the ultrasound that she had. Patient was seen on the 19 May for her upper quadrant abdominal pain after having her appendix out approximately a week ago had a CT and urinalysis done and labs. Ultrasound outpatient was ordered. Ultrasound shows mild hydronephrosis no cholelithiasis or evidence of cholecystitis. I discussed the results with the patient who verbalized understanding. Related Data Home Medications Medication Instructions Recorded Confirmed acetaminophen 325 mg tablet 325 - 650 mg PO PRN 01/26/15 05/21/22 (Tylenol) esomeprazole magnesium 40 mg 40 mg PO DAILY 05/19/19 05/21/22 capsule,delayed release (Nexium) mirtazapine 7.5 mg tablet 15 mg PO HS 05/19/19 05/21/22 ibuprofen 600 mg tablet 600 mg PO Q6H PRN #90 tabs 05/12/22 05/21/22 Previous Rx's Medication Instructions Recorded ibuprofen 600 mg tablet 600 mg PO Q6H PRN #90 tabs 05/12/22 Allergies Allergy/AdvReac Type Severity Reaction Status Date / Time gabapentin Allergy Severe FELT LIKE Unverified 05/21/22 17:08 SHE COULDN'T BREATH, OUT OF IT sertraline HCl [From Zoloft] AdvReac Intermediate vomiting/sh Unverified 05/21/22 17:08 aky amitriptyline AdvReac Unverified 05/21/22 17:08 General Stated Complaint: Recheck AMERICO: 4 PFSH All Active Problems (Updated 05/21/22 @ 17:16 by Kelli Conrad NP) Ovarian cyst (Acute) Abdominal pain (Acute) S/P laparoscopic appendectomy (Acute) Hives (Acute) Medical History GERD (gastroesophageal reflux disease) Surgical History EGD - MAC (09/02/15) DR.TERRY VICENTE Tooth extraction WISDOM TEETH Family History Mother Stomach cancer H/O oophorectomy H/O thyroidectomy Father Myocardial infarction Seizure disorder Grandfather Diabetes Grandmother Diabetes Stroke Maternal Aunt Seizure disorder Maternal Uncle No problems noted. Grandfather CHF (congestive heart failure) Gynecologic cancer COPD (chronic obstructive pulmonary disease) Grandmother Diabetes Essential hypertension Personal history of malignant neoplasm Maternal Uncle No problems noted. Maternal Aunt No problems noted. Sister Petit mal seizure status X 1 Asthma X 1 Brother Asthma X 1 Social History Smoking/Tobacco Use Status: Current every day Tobacco Type: cigarettes Smoking risk assessment performed?: Yes Drug use: Occasionally Substance use type: does not use Do you feel safe at home: Yes Do you feel safe in your relationship?: Yes Exam Narrative Exam Narrative: Constitutional: Alert and oriented x3. Appears stated age. Normal body habitus. Head: Normocephalic, no trauma. Eyes: EOM's intact. Eyelids symmetrical without lesions, discharge, or swelling. Normal dentition, Posterior pharynx WNL, no exudate. Musculoskeletal: Normal gait, Skin: No suspicious rashes or lesions. Capillary refill less than 2 sec. Course Vital Signs Vital signs: Vital Signs Temperature 37.2 C 05/21/22 17:05 Pulse 96 H 05/21/22 17:05 Respiratory Rate 14 05/21/22 17:05 Blood Pressure 118/73 05/21/22 17:05 Pulse Oximetry 97 05/21/22 17:05 Temperature 37.2 C 05/21/22 17:05 Temperature Source Temporal Artery Scan 05/21/22 17:05 Pulse 96 H 05/21/22 17:05 Respiratory Rate 14 05/21/22 17:05 Blood Pressure 118/73 05/21/22 17:05 Blood Pressure Position Supine 05/21/22 17:05 Pulse Oximetry 97 05/21/22 17:05 Oxygen Delivery Method Room Air 05/21/22 17:05 Oxygen Flow Rate 0 05/21/22 17:05 Pain Level 5 05/21/22 17:05
== END 2022-05-21 17:24 | disposition home or self-care (01) ==
PROVIDERS: Emergency Provider Registered Nurse Emergency; PCP Nurse Practitioner Family
DX: N13.30 Unspecified hydronephrosis (principal); F17.210 Nicotine dependence, cigarettes, uncomplicated
CPT/HCPCS: 99281; 99282

== ENCOUNTER 2022-06-05 15:42 | Outpatient (REF) | payer BC, SELFPAY ==
--- NOTE | 2022-06-05 14:00 | PAPFT_PTH ---
PATIENT: April Chavira I LOC: [facility] U#:[id number] AGE/SX: 31/F ROOM: RE06/05/[address]: RAKESH Cm : 1990 BED: DIS: 06/05/2022 SPEC #: [id number] RECD: 06/05/22 17:21 STATUS: [place] REQ #: [id number] MATT: 06/05/22 14:[address]: Mallika Mckeon DEPT: [facility] Cytology RECD BY: Ju Weber ENTERED: 06/05/22 17:21 SP TYPE: PAPFT OTHR DR: Yonatan Bonilla Tissues: 1 - CX/ENDOCX FOR PAP SMEARS Procedures: PAP THIN PREP/UVM Screening HPV DNA PROBE Comments: [id number]
== END 2022-06-05 15:43 | disposition home or self-care (01) ==
LOC: LBN 15:42
PROVIDERS: PCP Nurse Practitioner Family; Visit Provider Nurse Practitioner Family
DX: N76.0 Acute vaginitis (principal); Z12.4 Encounter for screening for malignant neoplasm of cervix; Z11.51 Encounter for screening for human papillomavirus (HPV)
CPT/HCPCS: 88142; 87624

== ENCOUNTER 2023-01-28 08:55 | Emergency (ER) | payer SELFPAY ==
[2023-01-28 08:59] VITALS: BP 111/91; PULSE 93; RESP 16; TEMP 36.6; O2SAT 99
--- NOTE | 2023-01-28 09:18 | ED.GENADUL_ITS ---
Discharge Plan Disposition Patient Disposition: Home Discharge Details Clinical Impression: Pain, dental Primary Care Provider: Sera Peña ED Provider: Ju Tran Home Meds and New Rx's Prescriptions: New penicillin V potassium 250 mg/5 mL recon soln 500 mg PO QID 7 Days Qty: 280 0RF ondansetron 4 mg tablet,disintegrating 4 mg PO Q8-10H PRN5 Days Qty: 10 0RF Continued chlorhexidine gluconate 0.12 % mouthwash 15 ml buccal BID Qty: 1200 0RF Patient Comments: Has not used in 2 days 01/28/2023 CT amoxicillin-pot clavulanate [Augmentin] 250-62.5 mg/5 mL suspension for reconstitution 17.5 ml PO BID 7 Days Qty: 245 0RF Patient Comments: Last used last night 01/28/2023 CT acetaminophen [Tylenol] 325 MG tablet 325 - 650 mg PO PRN meclizine 25 mg tablet 25 mg PO TID PRN famotidine 20 mg tablet 20 mg PO DAILY Patient Comments: Has not used in a while 01/28/2023 CT mirtazapine 7.5 MG tablet 15 mg PO HS esomeprazole magnesium [Nexium] 40 mg Capsule,Delayed Release(Dr/Ec) 40 mg PO DAILY ibuprofen 600 mg tablet 600 mg PO Q6H PRNQty: 90 2RF Rx Instructions: take w/ food Discharge Instructions Instructions: Toothache (ED) Additional Instructions: Stop taking your amoxicillin/clavulanate and switch to penicillin Take this 4 times daily, yogurt daily while on antibiotics Take Zofran as needed for nausea and vomiting Follow-up with dentist at your scheduled appointment and asked to be placed on the cancellation list Return immediately should you have new or worsening complaints Continue on ibuprofen and Tylenol Stand Alone Forms: Work Release Referrals: Sera Peña [Primary Care Provider] - Medical Decision Making 32-year-old female presenting with dental pain, likely adverse effect of Augmentin, will transition patient to penicillin VK liquid as she is unable to tolerate capsules or tablets Given Zofran for nausea and vomiting Referred to dentist at her scheduled appointment and to be placed on cancellation list No clinical evidence of Aram's angina Discharged home stable condition with stable vitals Medical Records Medical records reviewed: Yes I reviewed the patient's medical records. Lab Data Lab results reviewed: Yes I reviewed the patient's lab results. HPI General Date/Time Provider Initiated Documentation: 01/28/23 09:08 . HPI Narrative: This 32-year-old female presents with concern for dental infection, left lower jaw pain. Nausea, lightheadedness, diarrhea. Denies any fever or chills. States that she has been taking Augmentin since Saturday and her nausea, diarrhea, and vomiting started after taking the Augmentin. She denies any headache or vision change. She denies any difficulty swallowing. Denies any chance of . Related Data Home Medications Medication Instructions Recorded Confirmed acetaminophen 325 mg tablet 325 - 650 mg PO PRN 01/26/15 01/28/23 (Tylenol) esomeprazole magnesium 40 mg 40 mg PO DAILY 05/19/19 01/28/23 capsule,delayed release (Nexium) mirtazapine 7.5 mg tablet 15 mg PO HS 05/19/19 01/28/23 ibuprofen 600 mg tablet 600 mg PO Q6H PRN #90 tabs 05/12/22 01/28/23 famotidine 20 mg tablet 20 mg PO DAILY 05/31/22 meclizine 25 mg tablet 25 mg PO TID PRN 05/31/22 01/28/23 amoxicillin 250 mg-potassium 17.5 ml PO BID 7 days #245 mL 01/22/23 01/28/23 clavulanate 62.5 mg/5 mL oral suspension (Augmentin) chlorhexidine gluconate 0.12 % 15 ml buccal BID #1,200 mL 01/22/23 01/28/23 mouthwash ondansetron 4 mg disintegrating 4 mg PO Q8-10H PRN 5 days #10 tabs 01/28/23 tablet penicillin V potassium 250 mg/5 mL 500 mg (10 mL) PO QID 7 days #280 01/28/23 oral solution mL Previous Rx's Medication Instructions Recorded ibuprofen 600 mg tablet 600 mg PO Q6H PRN #90 tabs 05/12/22 amoxicillin 250 mg-potassium 17.5 ml PO BID 7 days #245 mL 01/22/23 clavulanate 62.5 mg/5 mL oral suspension (Augmentin) chlorhexidine gluconate 0.12 % 15 ml buccal BID #1,200 mL 01/22/23 mouthwash ondansetron 4 mg disintegrating 4 mg PO Q8-10H PRN 5 days #10 tabs 01/28/23 tablet penicillin V potassium 250 mg/5 mL 500 mg (10 mL) PO QID 7 days #280 01/28/23 oral solution mL Allergies Allergy/AdvReac Type Severity Reaction Status Date / Time gabapentin Allergy Severe FELT LIKE Verified 01/28/23 09:07 SHE COULDN'T BREATH, OUT OF IT sertraline HCl [From Zoloft] AdvReac Intermediate vomiting/sh Verified 01/28/23 09:07 aky amitriptyline AdvReac Verified 01/28/23 09:07 General Stated Complaint: Nausea/Vomit/Diar AMERICO: 3 PFSH All Active Problems (Updated 01/28/23 @ 09:22 by PRESTON Gil) Pain, dental (Acute) Acne (Acute) Migraine (Chronic) Globus sensation (Acute) Mixed anxiety depressive disorder (Acute) Fatigue (Acute) Vertigo (Acute) Tobacco abuse (Acute) Abdominal pain, right upper quadrant (Acute) Hydronephrosis (Acute) Warts (Acute) S/P laparoscopic appendectomy (Acute) Hives (Acute) Medical History GERD (gastroesophageal reflux disease) Surgical History EGD - MAC (09/02/15) DR.TERRY VICENTE Tooth extraction WISDOM TEETH Family History Mother Stomach cancer H/O oophorectomy H/O thyroidectomy Father Myocardial infarction Seizure disorder Grandfather Diabetes Grandmother Diabetes Stroke Maternal Aunt Seizure disorder Grandfather CHF (congestive heart failure) Gynecologic cancer COPD (chronic obstructive pulmonary disease) Grandmother Diabetes Essential hypertension Personal history of malignant neoplasm Sister Petit mal seizure status X 1 Asthma X 1 Brother Asthma X 1 Social History Smoking/Tobacco Use Status: Current every day Tobacco Type: cigarettes Smoking risk assessment performed?: Yes Alcohol Intake: never Drug use: Occasionally Substance use type: does not use Do you feel safe at home: Yes Do you feel safe in your relationship?: Yes Exam Const General: cooperative, comfortable and no acute distress HENMS Head: normal to inspection Teeth image: 1. 2 fractures noted, no swelling around tooth Other: No obvious facial swelling, no trismus, uvula midline, no evidence of deep space infection, no stridor Course Vital Signs Vital signs: Vital Signs Temperature 36.6 C 01/28/23 08:59 Pulse 93 H 01/28/23 08:59 Respiratory Rate 16 01/28/23 08:59 Blood Pressure 111/91 H 01/28/23 08:59 Pulse Oximetry 99 01/28/23 08:59 Temperature 36.6 C 01/28/23 08:59 Temperature Source Tympanic 01/28/23 08:59 Pulse 93 H 01/28/23 08:59 Respiratory Rate 16 01/28/23 08:59 Respiratory Effort Normal 01/28/23 09:06 Respiratory Pattern Normal 01/28/23 09:06 Blood Pressure 111/91 H 01/28/23 08:59 Blood Pressure Position Sitting 01/28/23 08:59 Pulse Oximetry 99 01/28/23 08:59 Oxygen Delivery Method Room Air 01/28/23 08:59 Oxygen Flow Rate 0 01/28/23 08:59 Pain Level 8 01/28/23 08:59
== END 2023-01-28 09:25 | disposition home or self-care (01) ==
PROVIDERS: Emergency Provider Physician Assistant; PCP Physician Assistant
DX: K08.89 Other specified disorders of teeth and supporting structures (principal); K03.81 Cracked tooth
CPT/HCPCS: 99283

== ENCOUNTER 2023-01-29 14:16 | Emergency (ER) | payer SELFPAY ==
[2023-01-29 14:24] VITALS: BP 138/75; PULSE 105; RESP 18; TEMP 37; O2SAT 99
--- NOTE | 2023-01-29 16:45 | ED.GENADUL_ITS ---
Discharge Plan Disposition Patient Disposition: Home Discharge Details Clinical Impression: Pain, dental Primary Care Provider: Sera Peña ED Provider: Ju Tran Home Meds and New Rx's Prescriptions: Continued chlorhexidine gluconate 0.12 % mouthwash 15 ml buccal BID Qty: 1200 0RF Patient Comments: Has not used in 2 days 01/28/2023 CT acetaminophen [Tylenol] 325 MG tablet 325 - 650 mg PO PRN meclizine 25 mg tablet 25 mg PO TID PRN famotidine 20 mg tablet 20 mg PO DAILY Patient Comments: Has not used in a while 01/28/2023 CT mirtazapine 7.5 MG tablet 15 mg PO HS esomeprazole magnesium [Nexium] 40 mg Capsule,Delayed Release(Dr/Ec) 40 mg PO DAILY ibuprofen 600 mg tablet 600 mg PO Q6H PRNQty: 90 2RF Rx Instructions: take w/ food penicillin V potassium 250 mg/5 mL recon soln 500 mg PO QID 7 Days Qty: 280 0RF ondansetron 4 mg tablet,disintegrating 4 mg PO Q8-10H PRN5 Days Qty: 10 0RF Discharge Instructions Instructions: Toothache (ED) Additional Instructions: start antibiotic zofran as needed for nausea and vomiting motrin/tylenol for thepain This follow-up with dentist return earlier with new or worsening complaints Referrals: Sera Peña [Primary Care Provider] - Discharge Data Discharge Date/Time-TO BE ENTERED AT DEPARTURE: 01/29/23 16:58 Medical Decision Making 32-year-old female presents with recurrent dental pain for reassessment for pain control, does not want opiates for home per patient Did not fill her prescription for penicillin, encouraged her to do so Zofran for home Inferior alveolar nerve block performed with good effect will continue calling to be placed on cancellation list for oral surgery follow-up Discharged home in stable condition with stable vitals Medical Records Medical records reviewed: Yes I reviewed the patient's medical records. HPI General Date/Time Provider Initiated Documentation: 01/29/23 15:24 . HPI Narrative: This 32-year-old female presents with report of dental pain, left lower, persistent and worsening. Did not fill her antibiotic that she was prescribed last evening. Denies any new injury. Denies any fever or chills. Denies any difficulty swallowing or trismus. Denies chance of . Related Data Home Medications Medication Instructions Recorded Confirmed acetaminophen 325 mg tablet 325 - 650 mg PO PRN 01/26/15 01/29/23 (Tylenol) esomeprazole magnesium 40 mg 40 mg PO DAILY 05/19/19 01/29/23 capsule,delayed release (Nexium) mirtazapine 7.5 mg tablet 15 mg PO HS 05/19/19 01/29/23 ibuprofen 600 mg tablet 600 mg PO Q6H PRN #90 tabs 05/12/22 01/29/23 famotidine 20 mg tablet 20 mg PO DAILY 05/31/22 meclizine 25 mg tablet 25 mg PO TID PRN 05/31/22 01/29/23 chlorhexidine gluconate 0.12 % 15 ml buccal BID #1,200 mL 01/22/23 01/29/23 mouthwash ondansetron 4 mg disintegrating 4 mg PO Q8-10H PRN 5 days #10 tabs 01/28/23 01/29/23 tablet penicillin V potassium 250 mg/5 mL 500 mg (10 mL) PO QID 7 days #280 01/28/23 01/29/23 oral solution mL Previous Rx's Medication Instructions Recorded ibuprofen 600 mg tablet 600 mg PO Q6H PRN #90 tabs 05/12/22 chlorhexidine gluconate 0.12 % 15 ml buccal BID #1,200 mL 01/22/23 mouthwash ondansetron 4 mg disintegrating 4 mg PO Q8-10H PRN 5 days #10 tabs 01/28/23 tablet penicillin V potassium 250 mg/5 mL 500 mg (10 mL) PO QID 7 days #280 01/28/23 oral solution mL Allergies Allergy/AdvReac Type Severity Reaction Status Date / Time gabapentin Allergy Severe FELT LIKE Verified 01/29/23 14:27 SHE COULDN'T BREATH, OUT OF IT sertraline HCl [From Zoloft] AdvReac Intermediate vomiting/sh Verified 01/29/23 14:27 aky amitriptyline AdvReac Verified 01/29/23 14:27 General Stated Complaint: DentalOral AMERICO: 4 PFSH All Active Problems (Updated 01/29/23 @ 16:47 by PRESTON Gil) Pain, dental (Acute) Acne (Acute) Migraine (Chronic) Globus sensation (Acute) Mixed anxiety depressive disorder (Acute) Fatigue (Acute) Vertigo (Acute) Tobacco abuse (Acute) Abdominal pain, right upper quadrant (Acute) Hydronephrosis (Acute) Warts (Acute) S/P laparoscopic appendectomy (Acute) Hives (Acute) Medical History GERD (gastroesophageal reflux disease) Surgical History EGD - MAC (09/02/15) DR.TERRY VICENTE Tooth extraction WISDOM TEETH Family History Mother Stomach cancer H/O oophorectomy H/O thyroidectomy Father Myocardial infarction Seizure disorder Grandfather Diabetes Grandmother Diabetes Stroke Maternal Aunt Seizure disorder Grandfather CHF (congestive heart failure) Gynecologic cancer COPD (chronic obstructive pulmonary disease) Grandmother Diabetes Essential hypertension Personal history of malignant neoplasm Sister Petit mal seizure status X 1 Asthma X 1 Brother Asthma X 1 Social History Smoking/Tobacco Use Status: Current every day Tobacco Type: cigarettes Smoking risk assessment performed?: Yes Alcohol Intake: never Drug use: Occasionally Substance use type: does not use Do you feel safe at home: Yes Do you feel safe in your relationship?: Yes Exam Narrative Exam Narrative: Widespread dental decay noted on the ENT exam, fractures noted to 18 and 19, no fluctuance, no soft palate induration, no trismus, uvula midline, oropharynx patent, no left TM involvement, no mastoid tenderness Course Vital Signs Vital signs: Vital Signs Temperature 37.0 C 01/29/23 14:24 Pulse 105 H 01/29/23 14:24 Respiratory Rate 18 01/29/23 14:24 Blood Pressure 138/75 01/29/23 14:24 Pulse Oximetry 99 01/29/23 14:24 Temperature 37.0 C 01/29/23 14:24 Temperature Source Tympanic 01/29/23 14:24 Pulse 105 H 01/29/23 14:24 Respiratory Rate 18 01/29/23 14:24 Respiratory Effort Normal 01/29/23 14:26 Blood Pressure 138/75 01/29/23 14:24 Blood Pressure Position Sitting 01/29/23 14:24 Pulse Oximetry 99 01/29/23 14:24 Oxygen Delivery Method Room Air 01/29/23 14:24 Oxygen Flow Rate 0 01/29/23 14:24 Pain Level 9 01/29/23 14:24 Procedures Nerve Block Nerve Block 1: Local Anesthetic: Bupivicaine 0.5% Amount of anesthesia used (mL): 1 Side: left Intraoral Nerve Block: inferior alveolar Procedure Successful: Yes Patient Tolerated Procedure: well Complications: none
[2023-01-29 16:57] VITALS: BP 129/70; PULSE 74; RESP 16; TEMP 36.8; O2SAT 100
== END 2023-01-29 16:58 | disposition home or self-care (01) ==
PROVIDERS: Emergency Provider Physician Assistant; PCP Physician Assistant
DX: R68.84 Jaw pain (principal)
CPT/HCPCS: 64400

== ENCOUNTER 2023-05-30 10:34 | Emergency (ER) | payer SELFPAY ==
--- NOTE | 2023-05-30 10:30 | RT.EKG_ITS ---
APPROVED REPORT Exam: Resting ECG Reason for Exam: Chest Tightness, SOB Patient Location: E HR:72 bpm ECG Measurements Heart Rate 72 AXIS AZ 127 P 43 QRSd 78 QRS 23 QT 348 T 38 QTc 380 Conclusion Sinus rhythm...normal P axis, V-rate 60- 99 normal sinus, normal axis, non ischemic
[2023-05-30 10:36] VITALS: BP 132/86; PULSE 81; RESP 18; TEMP 37; O2SAT 100
[2023-05-30 10:41] VITALS: RESP 18
--- NOTE | 2023-05-30 11:12 | W.ED.GENAD ---
Discharge Plan Disposition Patient Disposition: Home Condition: Stable Discharge Details Clinical Impression: Dizzinesses Primary Care Provider: Sera Peña ED Provider: Kelli Conrad Home Meds and New Rx's Prescriptions: New ondansetron 4 mg tablet,disintegrating 4 mg PO Q8H PRN (Reason: nausea and vomiting) 4 Days Qty: 9 0RF Rx Instructions: Take 1 tablet up to 3 times daily as needed for nausea and vomiting 20 minutes prior to meals. No Action chlorhexidine gluconate 0.12 % mouthwash 15 ml buccal BID Qty: 1200 0RF Patient Comments: Has not used in 2 days 01/28/2023 CT acetaminophen [Tylenol] 325 MG tablet 325 - 650 mg PO PRN meclizine 25 mg tablet 25 mg PO TID PRN famotidine 20 mg tablet 20 mg PO PRN PRN Patient Comments: Has not used in a while 01/28/2023 CT mirtazapine 7.5 MG tablet 15 mg PO HS esomeprazole magnesium [Nexium] 40 mg Capsule,Delayed Release(Dr/Ec) 40 mg PO DAILY ibuprofen 600 mg tablet 600 mg PO Q6H PRNQty: 90 2RF Rx Instructions: take w/ food Discharge Instructions Instructions: Dizziness (ED) Additional Instructions: No evidence of COVID or flu, urinalysis shows no evidence of urinary tract infection. A prescription for Zofran for nausea was sent to the pharmacy we have on file for you. Follow up with primary care provider in 3-5 days. Return to ED sooner if any worsening or concerns. Increase oral fluids. Imaging was not indicated at this visit. Please take Tylenol or Ibuprofen with food every 4-6 hours as needed for pain and swelling. Referrals: Sera Peña [Primary Care Provider] - 5 days Discharge Data Discharge Date/Time-TO BE ENTERED AT DEPARTURE: 05/30/23 12:53 Medical Decision Making 32-year-old female with a past medical history of GERD, vertigo, globus sensation, mixed anxiety depressive disorder, migraine, hydronephrosis, appendectomy who is a daily smoker presents to the ER with a chief complaint of dizziness and feeling off for the last few days. Denies any URI symptoms. Does have a smoker's cough. Denies any fever or chills. She also endorses some mild left flank pain. No focal neurodeficits noted on exam no history of head injuries. Negative Nae-Hallpike maneuver. Patient did take a meclizine at 830 this morning which helped a little bit prior to arrival. COVID flu swab completed by staff mine warfare officer which is negative. Urine test urinalysis ordered. Jorge L ordered ODT. Differential diagnosis includes but not limited to vertigo, UTI Urinalysis within normal limits, COVID flu RSV negative. Patient remained hemodynamically stable throughout the remainder of her stay. No focal neurodeficits to suggest central etiology. This text was generated using [employer] system, please disregard any oddities of phrase or misspellings. Medical Records Medical records reviewed: Yes I reviewed the patient's medical records. Lab Data Lab results reviewed: Yes I reviewed the patient's lab results. Labs: Laboratory Tests Range/Units 05/30/23 11:20 Urine Color (Yellow) Yellow Urine Clarity (Clear) Clear Urine pH (5-8) 7.5 Ur Specific [place] (1.005-1.025) 1.015 Urine Protein (Negative) mg/dL Negative Urine Ketones (Negative) mg/dL Negative Urine Blood (Negative) Negative Urine Nitrite (Negative) Negative Urine Bilirubin (Negative) Negative Urine Urobilinogen (Up to 0.2) mg/dL 0.2 Ur Leukocyte Esterase (Negative) Negative Urine Glucose (Negative) mg/dL Negative HPI General Mode of arrival: ambulatory. Date/Time Provider Initiated Documentation: 05/30/23 10:35. Limitations to Documentation: no limitations. Information obtained by: patient, RN notes reviewed and old records reviewed. HPI Narrative: 32-year-old female with a past medical history of GERD, vertigo, globus sensation, mixed anxiety depressive disorder, migraine, hydronephrosis, appendectomy who is a daily smoker presents to the ER with a chief complaint of dizziness and feeling off for the last few days. Denies any URI symptoms. Does have a smoker's cough. Denies any fever or chills. She also endorses some mild left flank pain. No focal neurodeficits noted on exam no history of head injuries. Negative Nae-Hallpike maneuver. Patient did take a meclizine at 830 this morning which helped a little bit prior to arrival. Related Data Home Medications Medication Instructions Recorded Confirmed acetaminophen 325 mg tablet 325 - 650 mg PO PRN 01/26/15 01/29/23 (Tylenol) esomeprazole magnesium 40 mg 40 mg PO DAILY 05/19/19 01/29/23 capsule,delayed release (Nexium) mirtazapine 7.5 mg tablet 15 mg PO HS 05/19/19 01/29/23 ibuprofen 600 mg tablet 600 mg PO Q6H PRN #90 tabs 05/12/22 01/29/23 famotidine 20 mg tablet 20 mg PO PRN PRN 05/31/22 meclizine 25 mg tablet 25 mg PO TID PRN 05/31/22 01/29/23 chlorhexidine gluconate 0.12 % 15 ml buccal BID #1,200 mL 01/22/23 01/29/23 mouthwash ondansetron 4 mg disintegrating 4 mg PO Q8H PRN nausea and 05/30/23 tablet vomiting 4 days #9 tabs Previous Rx's Medication Instructions Recorded ibuprofen 600 mg tablet 600 mg PO Q6H PRN #90 tabs 05/12/22 chlorhexidine gluconate 0.12 % 15 ml buccal BID #1,200 mL 01/22/23 mouthwash ondansetron 4 mg disintegrating 4 mg PO Q8H PRN nausea and 05/30/23 tablet vomiting 4 days #9 tabs Allergies Allergy/AdvReac Type Severity Reaction Status Date / Time gabapentin Allergy Severe FELT LIKE Verified 05/30/23 10:39 SHE COULDN'T BREATH, OUT OF IT sertraline HCl [From Zoloft] AdvReac Intermediate vomiting/sh Verified 05/30/23 10:39 aky amitriptyline AdvReac Verified 05/30/23 10:39 General Stated Complaint: Dizzy/Sync AMERICO: 4 Review of Systems All systems reviewed & are unremarkable except as noted in HPI and below Constitutional Constitutional: Reports as per HPI, Denies fever(s), Denies frequent falls and Denies headache(s) ENT Ears, Nose, Mouth, and Throat: Reports dizziness and Denies headache(s) Neurologic Neurologic: Reports as per HPI, Denies abnormal movements, Denies abnormal speech, Denies confusion, Reports dizziness, Denies frequent falls, Denies headache(s), Denies lack of coordination, Denies localized weakness and Denies sensory deficit Psychiatric Psychiatric: Denies confusion PFSH All Active Problems (Updated 05/30/23 @ 11:57 by Kelli Conrad NP) Dizzinesses (Acute) Acne (Acute) Migraine (Chronic) Globus sensation (Acute) Mixed anxiety depressive disorder (Acute) Fatigue (Acute) Vertigo (Acute) Tobacco abuse (Acute) Abdominal pain, right upper quadrant (Acute) Hydronephrosis (Acute) Warts (Acute) S/P laparoscopic appendectomy (Acute) Hives (Acute) Medical History GERD (gastroesophageal reflux disease) Surgical History EGD - MAC (09/02/15) DR.TERRY VICENTE Tooth extraction WISDOM TEETH Family History Mother Stomach cancer H/O oophorectomy H/O thyroidectomy Father Myocardial infarction Seizure disorder Grandfather Diabetes Grandmother Diabetes Stroke Maternal Aunt Seizure disorder Grandfather CHF (congestive heart failure) Gynecologic cancer COPD (chronic obstructive pulmonary disease) Grandmother Diabetes Essential hypertension Personal history of malignant neoplasm Sister Petit mal seizure status X 1 Asthma X 1 Brother Asthma X 1 Social History Smoking/Tobacco Use Status: Current every day Tobacco Type: cigarettes Smoking risk assessment performed?: Yes Alcohol Intake: never Drug use: Occasionally Substance use type: does not use Do you feel safe at home: Yes Do you feel safe in your relationship?: Yes Exam Narrative Exam Narrative: Constitutional: Alert and oriented x3. Appears stated age. Normal body habitus. Head: Normocephalic, no trauma. Eyes: Pupils PERRL, Red reflex noted, EOM's intact. Eyelids symmetrical without lesions, discharge, or swelling. ENT: Bilateral TM's WNL, External ear normal to inspection, no mastoid TTP, swelling, or erythema, Nasal turbinates WNL, no nasal discharge. Normal dentition, Posterior pharynx WNL, no exudate. Chest: RRR, Normal S1, S2, distal pulses intact. Resp: Lungs clear to auscultation bilaterally, no wheezes, rales, or rhonchi. Abdomen: Soft, non-distended, Normoactive bowel sounds all 4 quads. Mild left CVA tenderness with palpation. Musculoskeletal: Normal gait, 5/5 strength to all four extremities. Skin: No suspicious rashes or lesions. Capillary refill less than 2 sec. Neurologic: Cranial nerves II-XII intact. Alert and oriented x 3. Motor: No deficits noted. Sensory: Intact bilaterally all 4 extremities. Reflexes: DTR's intact bilaterally.. No nystagmus, negative Nae-Hallpike maneuver. Hematologic/Lymphatic: No ecchymosis, no lymphadenopathy. Course Vital Signs Vital signs: Vital Signs Temperature 37.0 C 05/30/23 10:36 Pulse 81 05/30/23 10:36 Respiratory Rate 18 05/30/23 10:36 Blood Pressure 132/86 05/30/23 10:36 Pulse Oximetry 100 05/30/23 10:36 Temperature 37.0 C 05/30/23 10:36 Temperature Source Oral 05/30/23 10:36 Pulse 81 05/30/23 10:36 Respiratory Rate 18 05/30/23 10:41 Respiratory Effort Short of Breath 05/30/23 10:41 Respiratory Depth Normal 05/30/23 10:41 Respiratory Pattern Normal 05/30/23 10:41 Blood Pressure 132/86 05/30/23 10:36 Blood Pressure Position Sitting 05/30/23 10:36 Pulse Oximetry 100 05/30/23 10:36 Oxygen Delivery Method Room Air 05/30/23 10:36 Oxygen Flow Rate 0 05/30/23 10:36 Pain Level 0 05/30/23 10:36
[2023-05-30] MEDS: Ondansetron O.D.T. 4 MG TABEF PO (11:38)
[2023-05-30 11:39] LABS: Bilirubin Negative (Negative); Blood Negative (Negative); Clarity Clear (Clear); Glucose Negative (Negative); Ketones Negative (Negative); Leukocyte Esterase Negative (Negative); Nitrite Negative (Negative); Specific Gravity 1.015 (1.005-1.025); Urobilinogen 0.2 mg/dL (Up to 0.2); pH 7.5 (5-8)
[2023-05-30 12:51] VITALS: BP 116/74; PULSE 70; RESP 16; O2SAT 100
== END 2023-05-30 12:53 | disposition home or self-care (01) ==
PROVIDERS: Emergency Provider Registered Nurse Emergency; PCP Physician Assistant
DX: R42 Dizziness and giddiness (principal); R53.1 Weakness; F17.210 Nicotine dependence, cigarettes, uncomplicated; Z20.822 Contact with and (suspected) exposure to COVID-19
CPT/HCPCS: 81025; 93005; 99283; 81003; 93010

== ENCOUNTER 2023-06-03 07:41 | Emergency (ER) | payer SELFPAY ==
[2023-06-03 07:43] VITALS: BP 122/68; PULSE 78; RESP 16; TEMP 36.8; O2SAT 100
--- NOTE | 2023-06-03 08:00 | RT.EKG_ITS ---
APPROVED REPORT Exam: Resting ECG Reason for Exam: dizzy Patient Location: E HR:68 bpm ECG Measurements Heart Rate 68 AXIS NC 135 P 50 QRSd 80 QRS 37 QT 363 T 59 QTc 385 Conclusion Sinus rhythm...normal P axis, V-rate 60- 99 sinus rhythm, normal axis, non ischemic
--- NOTE | 2023-06-03 08:16 | ED.GENADUL_ITS ---
Discharge Plan Disposition Patient Disposition: Home Condition: Improving Discharge Details Chief Complaint: Dizzy/Sync Clinical Impression: Lightheadedness Primary Care Provider: Sera Peña ED Provider: Alex Lopez Home Meds and New Rx's Prescriptions: No Action chlorhexidine gluconate 0.12 % mouthwash 15 ml buccal BID Qty: 1200 0RF Patient Comments: Has not used acetaminophen [Tylenol] 325 MG tablet 325 - 650 mg PO PRN meclizine 25 mg tablet 25 mg PO TID PRN famotidine 20 mg tablet 20 mg PO PRN PRN Patient Comments: Has not used in a while 01/28/[address]23 CT mirtazapine 7.5 MG tablet 15 mg PO HS esomeprazole magnesium [Nexium] 40 mg Capsule,Delayed Release(Dr/Ec) 40 mg PO DAILY ibuprofen 600 mg tablet 600 mg PO Q6H PRNQty: 90 2RF Rx Instructions: take w/ food Discharge Instructions Instructions: Near Syncope (ED) Additional Instructions: Please follow-up close with your primary care physician. Please discuss the potential of having a Holter monitor placed. Please return to the emergency department for any worsening symptoms Medical Decision Making 32-year-old female presents with recurrent episodes of lightheadedness over the past several weeks, worse when she goes from a seated to a standing position, sensation of dizziness and presyncopal, mild shortness of breath self resolved brief in nature, no exogenous estrogen use no history of thromboembolic disease for coronary disease. Patient is afebrile nontoxic nonhypoxic nontachycardic normotensive. Neurologically intact. Consider orthostasis versus vasovagal versus dehydration versus electrolyte abnormality versus less likely ACS or PE. Will obtain screening labs EKG close reassessment 9: 15 evidence of hypokalemia and hypomagnesemia. Will replete electrolytes. Will reassess patient, likely will encourage follow-up with primary care physician and consideration of Holter monitor given recurrent symptoms. 10: 34 resting comfortably no acute distress. Patient to follow-up with primary care physician HPI General Date/Time Provider Initiated Documentation: 06/03/23 07:44 . HPI Narrative: 32-year-old female presents with recurrent lightheadedness worse when she goes from seated to a standing position is dizzy and presyncopal. Has been taking meclizine without benefit. Denies abdominal pain nausea vomiting fevers or other systemic symptoms. Mild shortness of breath during these events brief and self resolving, no history of coronary artery disease or thromboembolic disease. No exogenous estrogen use Related Data Home Medications Medication Instructions Recorded Confirmed acetaminophen 325 mg tablet 325 - 650 mg PO PRN 01/26/15 06/03/23 (Tylenol) esomeprazole magnesium 40 mg 40 mg PO DAILY 05/19/19 06/03/23 capsule,delayed release (Nexium) mirtazapine 7.5 mg tablet 15 mg PO HS 05/19/19 06/03/23 ibuprofen 600 mg tablet 600 mg PO Q6H PRN #90 tabs 05/12/22 06/03/23 famotidine 20 mg tablet 20 mg PO PRN PRN 05/31/22 06/03/23 meclizine 25 mg tablet 25 mg PO TID PRN 05/31/22 06/03/23 chlorhexidine gluconate 0.12 % 15 ml buccal BID #1,200 mL 01/22/23 01/29/23 mouthwash Previous Rx's Medication Instructions Recorded ibuprofen 600 mg tablet 600 mg PO Q6H PRN #90 tabs 05/12/22 chlorhexidine gluconate 0.12 % 15 ml buccal BID #1,200 mL 01/22/23 mouthwash Allergies Allergy/AdvReac Type Severity Reaction Status Date / Time gabapentin Allergy Severe FELT LIKE Verified 06/03/23 07:46 SHE COULDN'T BREATH, OUT OF IT sertraline HCl [From Zoloft] AdvReac Intermediate vomiting/sh Verified 06/03/23 07:46 aky amitriptyline AdvReac Verified 06/03/23 07:46 General Stated Complaint: Dizzy/Sync AMERICO: 3 Review of Systems Narrative: Review of Systems Constitutional: negative Eyes: negative ENT: negative Cardiovascular: lightheaded Respiratory: negative Gastrointestinal: negative : negative Musculoskeletal: negative Skin: negative Neurologic: negative Psych: negative PFSH All Active Problems (Updated 06/03/23 @ 10:36 by Alex Lopez MD) Dizzinesses (Acute) Lightheadedness (Acute) Acne (Acute) Migraine (Chronic) Globus sensation (Acute) Mixed anxiety depressive disorder (Acute) Fatigue (Acute) Vertigo (Acute) Tobacco abuse (Acute) Abdominal pain, right upper quadrant (Acute) Hydronephrosis (Acute) Warts (Acute) S/P laparoscopic appendectomy (Acute) Hives (Acute) Medical History GERD (gastroesophageal reflux disease) Surgical History EGD - MAC (09/02/15) DR.TERRY VICENTE Tooth extraction WISDOM TEETH Family History Mother Stomach cancer H/O oophorectomy H/O thyroidectomy Father Myocardial infarction Seizure disorder Grandfather Diabetes Grandmother Diabetes Stroke Maternal Aunt Seizure disorder Grandfather CHF (congestive heart failure) Gynecologic cancer COPD (chronic obstructive pulmonary disease) Grandmother Diabetes Essential hypertension Personal history of malignant neoplasm Sister Petit mal seizure status X 1 Asthma X 1 Brother Asthma X 1 Social History Smoking/Tobacco Use Status: Current every day Tobacco Type: cigarettes Smoking risk assessment performed?: Yes Alcohol Intake: never Drug use: Occasionally Substance use type: does not use Housing: house Do you feel safe at home: Yes Do you feel safe in your relationship?: Yes Exam Narrative Exam Narrative: Physical Examination General: alert, awake, cooperative, resting comfortably, no acute distress HEENT: normocephalic, atraumatic; PERRL, EOM intact, conjunctiva normal; no nasal discharge; moist mucous membranes, oral and pharyngeal mucosa normal, tolerating secretions Neck: supple, trachea midline; full ROM Chest: normal to inspection Respiratory: normal respiratory effort, speaking in full sentences, clear to auscultation, no wheezing, rales or rhonchi Cardiac: regular rate, regular rhythm, S1S2 intact, no murmurs rubs or gallops GI: abdomen soft, non-tender, non-distended; no palpable mass or hepatosplenomegaly Skin: no lesions, rashes or trauma appreciated Neuro: AAOx3, normal speech, moving all extremities Psych: Appropriate mood and affect Course Vital Signs Vital signs: Vital Signs Temperature 36.8 C 06/03/23 07:43 Pulse 78 06/03/23 07:43 Respiratory Rate 16 06/03/23 07:43 Blood Pressure 122/68 06/03/23 07:43 Pulse Oximetry 100 06/03/23 07:43 Temperature 36.8 C 06/03/23 07:43 Temperature Source Skin 06/03/23 07:43 Pulse 78 06/03/23 07:43 Respiratory Rate 16 06/03/23 07:43 Respiratory Effort Normal, Non-Labored 06/03/23 07:48 Blood Pressure 122/68 06/03/23 07:43 Blood Pressure Position Sitting 06/03/23 07:43 Pulse Oximetry 100 06/03/23 07:43 Oxygen Delivery Method Room Air 06/03/23 07:43 Oxygen Flow Rate 0 06/03/23 07:43 Pain Level 0 06/03/23 07:43
[2023-06-03 08:29] LABS: Bilirubin Negative (Negative); Blood Negative (Negative); Clarity Clear (Clear); Glucose Negative (Negative); Ketones Negative (Negative); Leukocyte Esterase Negative (Negative); Nitrite Negative (Negative); Urobilinogen 0.2 mg/dL (Up to 0.2)
[2023-06-03] MEDS: Normal Saline 1,000 ML 1000 ML IV (08:33)
[2023-06-03 08:35] LABS: Abs Immature Grans 0.02 10^3/uL (0.0-0.06); Absolute Basophil Count 0.04 10^3/uL (0.0-0.2); Absolute Eosinophil Count 0.09 10^3/uL (0.0-0.7); Absolute Lymphocyte Count 1.96 10^3/uL (1.2-3.4); Basophils % 0.5; Eosinophils % 1.2; HCT 41.9 % (36.0-46.0); HGB 13.7 g/dL (11.2-15.7); Immature Grans % 0.3; Lymphocytes % 26.1; MCH 27.2 pg (27.0-33.0); MCHC 32.7 % (32.0-36.0); MCV 83 fL (80-95); MPV 10.3 fL (8.0-11.0); Monocytes % 5.3; Neutrophils % 66.6; Platelet Count 289 10^3/uL (130-400); RBC 5.03 10^6/uL (3.93-5.22); RDW 14.3 % (11.7-14.6); RDW-SD 43.1 fL; WBC 7.51 10^3/uL (4.4-10.8)
[2023-06-03 09:03] LABS: ALT 25 U/L (14-59); AST 13 U/L (15-37); Albumin 4.1 g/dL (3.4-5.0); Alkaline Phosphatase 77 U/L (46-116); Anion Gap 8.8 mmol/L (3-11); BUN 10 mg/dL (7-18); Bilirubin, Total 0.2 mg/dL (0.2-1.0); CO2 30.2 mmol/L (21.0-32.0); CREATININE 0.8 mg/dL (0.55-1.02); Chloride 105 mmol/L (98-107); Estimated GFR 100.96 (mL/min/1.73m2); Glucose 92 mg/dL (74-106); Magnesium 1.2 mg/dL (1.8-2.4); Potassium 3.3 mmol/L (3.5-5.1); Sodium 144 mmol/L (136-145); TSH (W/Ref FT4) 1.53 uIU/mL (0.36-3.74); Total Protein 7.8 g/dL (6.4-8.2); Troponin I < 50 ng/L (<or=60)
[2023-06-03] MEDS: Potassium Chloride Liquid 20 MEQ PKT (09:35)
[2023-06-03] MEDS: MAGNESIUM SULFATE 1 GM/100 ML BAG IVPB (09:37)
== END 2023-06-03 11:15 | disposition home or self-care (01) ==
PROVIDERS: Emergency Provider Emergency Medicine; PCP Physician Assistant
DX: R42 Dizziness and giddiness (principal); R06.02 Shortness of breath
CPT/HCPCS: 80053; 81025; 93005; 96361; 96365; 99284; 81003; 83735; 84443; 84484; 85025; 93010; J3475

== ENCOUNTER 2023-06-13 12:53 | Outpatient (RCR) | payer SELFPAY ==
--- NOTE | 2023-06-13 12:45 | HOLTER_ITS ---
APPROVED REPORT Conclusion This is a 48-hour Holter monitor ordered for palpitations Rhythm throughout is sinus with an average heart rate of 86. Minimum was 60, maximum 132 There were no ventricular dysrhythmias 2 isolated premature atrial contractions were recorded Patient symptoms were present which had no correlation to any dysrhythmia
== END 2023-07-11 23:59 | disposition home or self-care (01) ==
LOC: CARDOPNVT 12:53
PROVIDERS: PCP Physician Assistant; Visit Provider Physician Assistant
DX: R00.2 Palpitations (principal)
CPT/HCPCS: 93225; 93226

== ENCOUNTER 2023-07-29 18:09 | Outpatient (REF) | payer SELFPAY ==
[2023-07-30 12:25] LABS: ALT 20 U/L (14-59); AST 15 U/L (15-37); Albumin 3.8 g/dL (3.4-5.0); Alkaline Phosphatase 86 U/L (46-116); Anion Gap 6.6 mmol/L (3-11); BUN 8 mg/dL (7-18); Bilirubin, Total 0.1 mg/dL (0.2-1.0); CO2 28.4 mmol/L (21.0-32.0); CREATININE 0.7 mg/dL (0.55-1.02); Calcium 9.6 mg/dL (8.5-10.1); Chloride 104 mmol/L (98-107); Estimated GFR 118.51 (mL/min/1.73m2); Glucose 115 mg/dL (74-106); Potassium 3.4 mmol/L (3.5-5.1); Sodium 139 mmol/L (136-145); TSH (W/Ref FT4) 0.94 uIU/mL (0.36-3.74); Total Protein 7.3 g/dL (6.4-8.2)
== END 2023-07-29 18:10 | disposition home or self-care (01) ==
LOC: NCHCN 18:09
PROVIDERS: PCP Physician Assistant; Visit Provider Internal Medicine
DX: R53.83 Other fatigue (principal)
CPT/HCPCS: 80053; 84443; 85025

== ENCOUNTER 2023-07-30 12:59 | Outpatient (REF) | payer SELFPAY ==
[2023-07-30 18:49] LABS: Abs Immature Grans 0.02 10^3/uL (0.0-0.06); Absolute Basophil Count 0.06 10^3/uL (0.0-0.2); Absolute Eosinophil Count 0.12 10^3/uL (0.0-0.7); Absolute Lymphocyte Count 2.14 10^3/uL (1.2-3.4); Absolute Neutrophil Count 5.11 10^3/uL (1.2-6.7); Basophils % 0.8; Eosinophils % 1.5; HCT 39.5 % (36.0-46.0); HGB 13.1 g/dL (11.2-15.7); Immature Grans % 0.3; Lymphocytes % 27.3; MCH 27.9 pg (27.0-33.0); MCHC 33.2 % (32.0-36.0); MCV 84 fL (80-95); MPV 11.1 fL (8.0-11.0); Monocytes % 5.1; Platelet Count 348 10^3/uL (130-400); RBC 4.69 10^6/uL (3.93-5.22); RDW 14.2 % (11.7-14.6); RDW-SD 43.3 fL; WBC 7.85 10^3/uL (4.4-10.8)
== END 2023-07-30 13:00 | disposition home or self-care (01) ==
LOC: NCHCN 12:59
PROVIDERS: PCP Physician Assistant; Visit Provider Physician Assistant
DX: R53.83 Other fatigue (principal)
CPT/HCPCS: 80053; 84443; 85025

== ENCOUNTER 2023-08-16 02:41 | Outpatient (CLI) | payer SELFPAY ==
[2023-08-19 11:30] LABS: Lyme Ab w Rflx to Lyme Confirm Negative (Negative)
[2023-08-19 13:29] LABS: Anaplasma phagocytophilum Negative (Negative); B. miyamotoi PCR Negative (Negative); Babesia divergens/MO-1 Negative (Negative); Babesia duncani Negative (Negative); Babesia microti Negative (Negative); Ehrlichia chaffeensis Negative (Negative); Ehrlichia ewingii/canis Negative (Negative); Ehrlichia muris eauclairensis Negative (Negative)
== END 2023-08-16 02:42 | disposition home or self-care (01) ==
PROVIDERS: PCP Physician Assistant; Visit Provider Registered Nurse Maternal Newborn
DX: R42 Dizziness and giddiness (principal); R53.83 Other fatigue
CPT/HCPCS: 36415; 87798; 86618

== ENCOUNTER 2024-01-30 15:24 | Outpatient (REF) | payer SELFPAY ==
[2024-01-30 19:21] LABS: BUN 10 mg/dL (7-18); CREATININE 0.8 mg/dL (0.55-1.02); Chloride 105 mmol/L (98-107); Estimated GFR 100.33 (mL/min/1.73m2); Glucose 93 mg/dL (74-106); Magnesium 1.1 mg/dL (1.8-2.4); Potassium 3.6 mmol/L (3.5-5.1); Sodium 143 mmol/L (136-145)
== END 2024-01-30 15:25 | disposition home or self-care (01) ==
LOC: NCHCN 15:24
PROVIDERS: PCP Physician Assistant; Visit Provider Physician Assistant
DX: E83.42 Hypomagnesemia (principal); E87.6 Hypokalemia
CPT/HCPCS: 80048; 83735

== ENCOUNTER 2024-02-21 15:12 | Outpatient (REF) | payer OTHER, SELFPAY ==
[2024-02-21 19:32] LABS: Magnesium 1.6 mg/dL (1.8-2.4)
== END 2024-02-21 15:13 | disposition home or self-care (01) ==
LOC: NCHCN 15:12
PROVIDERS: PCP Physician Assistant; Visit Provider Physician Assistant
DX: E83.42 Hypomagnesemia (principal)
CPT/HCPCS: 83735

== ENCOUNTER 2024-03-12 19:02 | Outpatient (REF) | payer OTHER, SELFPAY ==
[2024-03-12 19:40] LABS: Magnesium 0.9 mg/dL (1.8-2.4)
== END 2024-03-12 19:03 | disposition home or self-care (01) ==
LOC: NCHCN 19:02
PROVIDERS: PCP Physician Assistant; Visit Provider Physician Assistant
DX: E83.42 Hypomagnesemia (principal)
CPT/HCPCS: 83735

== ENCOUNTER 2024-03-27 11:44 | Emergency (ER) | payer OTHER, SELFPAY ==
--- NOTE | 2024-03-27 11:45 | RT.EKG_ITS ---
APPROVED REPORT Exam: Resting ECG Reason for Exam: chest tightness/dizzy Patient Location: E HR:96 bpm ECG Measurements Heart Rate 96 AXIS HI 118 P 53 QRSd 76 QRS 28 QT 329 T 31 QTc 416 Conclusion Sinus rhythm...normal P axis, V-rate 60- 99
[2024-03-27 11:51] VITALS: BP 141/94; PULSE 67; RESP 16; TEMP 36.5; O2SAT 100
[2024-03-27 12:53] LABS: Abs Immature Grans 0.05 10^3/uL (0.0-0.06); Absolute Basophil Count 0.06 10^3/uL (0.0-0.2); Absolute Eosinophil Count 0.07 10^3/uL (0.0-0.7); Absolute Monocyte Count 0.45 10^3/uL (0.1-0.8); Absolute Neutrophil Count 5.03 10^3/uL (1.2-6.7); Basophils % 0.8 %; Eosinophils % 0.9 %; HCT 38.1 % (36.0-46.0); HGB 12.5 g/dL (11.2-15.7); Immature Grans % 0.7 %; Lymphocytes % 25.1 %; MCH 27.4 pg (27.0-33.0); MCHC 32.8 % (32.0-36.0); MCV 84 fL (80-95); MPV 9.6 fL (8.0-11.0); Neutrophils % 66.5 %; Platelet Count 372 10^3/uL (130-400); RBC 4.56 10^6/uL (3.93-5.22); RDW 15.4 % (11.7-14.6); RDW-SD 46.6 fL; WBC 7.56 10^3/uL (4.4-10.8)
[2024-03-27 13:14] LABS: ALT 36 U/L (14-59); AST 19 U/L (15-37); Albumin 4.1 g/dL (3.4-5.0); Alkaline Phosphatase 93 U/L (46-116); Anion Gap 9.1 mmol/L (3-11); BUN 9 mg/dL (7-18); Bilirubin, Total 0.2 mg/dL (0.2-1.0); CO2 28.9 mmol/L (21.0-32.0); CREATININE 0.8 mg/dL (0.55-1.02); Chloride 106 mmol/L (98-107); Estimated GFR 100.33 (mL/min/1.73m2); Glucose 94 mg/dL (74-106); Potassium 3.8 mmol/L (3.5-5.1); Sodium 144 mmol/L (136-145); Total Protein 7.9 g/dL (6.4-8.2); Troponin I < 50 ng/L (< or =60)
[2024-03-27 13:56] LABS: D-Dimer 291 ng/mlFEU (<500)
--- NOTE | 2024-03-27 14:25 | DI.RAD_ITS ---
Exam(s) XR PORTABLE CHEST AP EXAM: XR PORTABLE CHEST AP CLINICAL HISTORY: chest pain TECHNIQUE: 2D digital imaging was performed of the chest. One image was obtained. An AP view was ob tained. COMPARISON: No exams were available for comparison FINDINGS: MEDIASTINUM: Normal. HEART: Normal. PULMONARY VASCULATURE: Normal. LUNGS: Clear. PLEURAL SPACE: No pleural effusion or pneumothorax. BONE:Within normal limits for the patient's age. OTHER FINDINGS:Normal. IMPRESSION: No acute pulmonary findings. DATA REPOSITORY: RADIATION DOSE DELIVERED:
--- NOTE | 2024-03-27 15:25 | W.ED.GENAD ---
Discharge Plan Disposition Patient Disposition: Home Condition: Stable Discharge Details Clinical Impression: Pre-syncope, Pain, dental, Chest tightness, Nausea Primary Care Provider: Sera Peña ED Provider: Mark Marcano Home Meds and New Rx's Prescriptions: New penicillin V potassium 250 mg/5 mL recon soln 500 mg PO QID 7 Days Qty: 280 0RF Continued acetaminophen [Tylenol] 325 MG tablet 325 - 650 mg PO PRN mirtazapine 7.5 mg tablet 30 mg PO HS esomeprazole magnesium [Nexium] 40 mg Capsule,Delayed Release(Dr/Ec) 40 mg PO DAILY ibuprofen 600 mg tablet 600 mg PO Q6H PRNQty: 90 2RF Rx Instructions: take w/ food citalopram 10 mg/5 mL solution 10 mg PO DAILY Patient Comments: have not started famotidine 40 mg/5 mL (8 mg/mL) suspension for reconstitution 40 mg PO DAILY Patient Comments: SHAKE WELL AND TAKE 5 ML BY MOUTH EVERY MORNING. REPLACES ESOMEPRAZOLE. have not started lorazepam 0.5 mg tablet 0.5 mg PO Q8H PRN Patient Comments: TAKE 1 TABLET BY MOUTH DAILY NEEDED FOR SEVERE PANIC ATTACKS Discontinued meclizine 25 mg tablet 25 mg PO TID PRN Patient Comments: have not taken in quite a while famotidine 20 mg tablet 20 mg PO PRN PRN Patient Comments: Has not used in a while 01/28/2023 CT Discharge Instructions Instructions: Near Syncope (ED), Toothache (ED) Additional Instructions: Please rest over the next few days. No exertional activities. Please contact your primary care physician to arrange follow-up. Additional outpatient diagnostic testing including cardiac monitoring is warranted. Please take full course of antibiotic as prescribed. Please follow-up with your dentist. Call today to arrange timely follow-up. No operating heavy machinery or motor vehicle until cleared by your primary care physician. Return to the ER immediately for any worsening or new concerning symptoms. Referrals: Sera Peña [Primary Care Provider] - [facility] General Mode of arrival: ambulatory. Date/Time Provider Initiated Documentation: 03/27/24 12:27. Limitations to Documentation: no limitations. Information obtained by: patient. HPI Narrative: 33-year-old female she presents with chief complaint of nausea. Patient notes chest tightness, dizziness, nausea and anxiety that started about 3 hours prior to arrival. Patient states feeling dizziness as though she would pass out. Patient does note she took lorazepam for her anxiety. She continues to feel nausea at this time. Patient does note recent right upper molar dental pain over the past 3 to 4 days. Related Data Home Medications Medication Instructions Recorded Confirmed acetaminophen 325 mg tablet 325 - 650 mg PO PRN 01/26/15 03/27/24 (Tylenol) esomeprazole magnesium 40 mg 40 mg PO DAILY 05/19/19 03/27/24 capsule,delayed release (Nexium) ibuprofen 600 mg tablet 600 mg PO Q6H PRN #90 tabs 05/12/22 03/27/24 mirtazapine 7.5 mg tablet 30 mg PO HS 07/03/23 03/27/24 citalopram 10 mg/5 mL oral solution 10 mg PO DAILY 03/27/24 03/27/24 famotidine 40 mg/5 mL (8 mg/mL) 40 mg PO DAILY 03/27/24 03/27/24 oral suspension lorazepam 0.5 mg tablet 0.5 mg PO Q8H PRN 03/27/24 03/27/24 penicillin V potassium 250 mg/5 mL 500 mg (10 mL) PO QID 7 days #280 03/27/24 oral solution mL Previous Rx's Medication Instructions Recorded ibuprofen 600 mg tablet 600 mg PO Q6H PRN #90 tabs 05/12/22 penicillin V potassium 250 mg/5 mL 500 mg (10 mL) PO QID 7 days #280 03/27/24 oral solution mL Allergies Allergy/AdvReac Type Severity Reaction Status Date / Time gabapentin Allergy Severe FELT LIKE Verified 03/27/24 11:48 SHE COULDN'T BREATH, OUT OF IT amoxicillin [From Augmentin] Allergy Diarrhea Verified 03/27/24 11:48 clavulanic acid Allergy Nausea Verified 03/27/24 11:48 [From Augmentin] sertraline HCl [From Zoloft] AdvReac Intermediate vomiting/sh Verified 03/27/24 11:48 aky amitriptyline AdvReac Nausea Verified 03/27/24 11:48 General Stated Complaint: Chest Pain AMERICO: 3 Review of Systems All systems reviewed & are unremarkable except as noted in HPI and below Constitutional Constitutional: Denies fever(s) Exam Const General: cooperative Orientation: alert and awake [facility] General nose exam: external nose normal Face and sinus: normal facial exam Teeth and gingiva: dentition normal Throat: posterior oropharynx normal Other: No abscess along gumline Neck Neck: no lymphadenopathy, supple and No submandibular swelling Resp Effort & Inspection: normal respiratory effort and able to speak in complete sentences Auscultation: clear to auscultation bilaterally Cardio Rate: regular rate Rhythm: regular rhythm Heart Sounds: no gallops, no murmurs and no rubs GI Inspection: non-distended Palpation: not firm, not rigid and nontender Auscultation: normal bowel sounds Neuro General: patient alert and patient awake Cognition: normal cognition Speech: speech normal Gait: normal gait Motor: strength 5/5 throughout Sensory Exam: no sensory deficits noted Extrem General: no pedal edema and no calf tenderness Course Vital Signs Vital signs: Vital Signs Temperature 36.5 C 03/27/24 11:51 Pulse 67 03/27/24 11:51 Respiratory Rate 16 03/27/24 11:51 Blood Pressure 141/94 H 03/27/24 11:51 Pulse Oximetry 100 03/27/24 11:51 Temperature 36.5 C 03/27/24 11:51 Temperature Source Temporal Artery Scan 03/27/24 11:51 Pulse 67 03/27/24 11:51 Respiratory Rate 16 03/27/24 11:51 Respiratory Effort Normal, Short of Breath 03/27/24 11:54 Blood Pressure 141/94 H 03/27/24 11:51 Blood Pressure Position Sitting 03/27/24 11:51 Pulse Oximetry 100 03/27/24 11:51 Oxygen Delivery Method Room Air 03/27/24 11:51 Oxygen Flow Rate 0 03/27/24 11:51 Pain Level 7 03/27/24 11:51 Lab/Test Results Lab/Test Results: Laboratory Tests Range/Units 03/27/24 03/27/24 12:30 13:15 WBC (4.4-10.8) 10^3/uL 7.56 RBC (3.93-5.22) 10^6/uL 4.56 Hgb (11.2-15.7) g/dL 12.5 Hct (36.0-46.0) % 38.1 MCV (80-95) fL 84 MCH (27.0-33.0) pg 27.4 MCHC (32.0-36.0) % 32.8 RDW (11.7-14.6) % 15.4 H Plt Count (130-400) 10^3/uL 372 MPV (8.0-11.0) fL 9.6 Immature Gran % % 0.7 Neutrophils % % 66.5 Lymphocytes % % 25.1 Monocytes % % 6.0 Eosinophils % % 0.9 Basophils % % 0.8 Nucleated RBC % (0.0-0.3) % 0.0 Absolute Neutrophils (1.2-6.7) 10^3/uL 5.03 Absolute Lymphocytes (1.2-3.4) 10^3/uL 1.90 Absolute Monocytes (0.1-0.8) 10^3/uL 0.45 Absolute Eosinophils (0.0-0.7) 10^3/uL 0.07 Absolute Basophils (0.0-0.2) 10^3/uL 0.06 D-Dimer (<500) ng/mlFEU 291 Sodium (136-145) mmol/L 144 Potassium (3.5-5.1) mmol/L 3.8 Chloride (98-107) mmol/L 106 Carbon Dioxide (21.0-32.0) mmol/L 28.9 Anion Gap (3-11) mmol/L 9.1 BUN (7-18) mg/dL 9 Creatinine (0.55-1.02) mg/dL 0.8 Est GFR (CKD-EPI 2020) (mL/min/1.73m2) 100.33 Glucose (74-106) mg/dL 94 Calcium (8.5-10.1) mg/dL 9.0 Total Bilirubin (0.2-1.0) mg/dL 0.2 AST (15-37) U/L 19 ALT (14-59) U/L 36 Alkaline Phosphatase (46-116) U/L 93 Troponin I (< or =60) ng/L < 50 Total Protein (6.4-8.2) g/dL 7.9 Albumin (3.4-5.0) g/dL 4.1 Medical Decision Making 33-year-old female presenting with nausea, presyncope, chest tightness, and anxiety that started about 3 hours prior to arrival. Patient does also note recent right upper molar pain over the past 3 to 4 days and is concerned that this may be contributing to her symptoms. Patient is hemodynamically stable. She is saturating well in no respiratory distress. EKG was reviewed and interpreted by me: Nondiagnostic, please see report. Patient is low risk for both pulmonary embolism and ACS. D-dimer negative. Troponin and delta troponin negative. Considered pneumothorax. Chest x-ray was reviewed and interpreted by radiology: No acute pulmonary disease. No pneumothorax. Patient reassessed and noted be feeling better. She continues to have dental discomfort. No fluctuant abscess on examination. I will initiate treatment for potential periapical dental infection. Patient notes she has tolerated penicillin in the past. Prescription for liquid penicillin as requested sent to pharmacy. All results were discussed with the patient. Plan for discharge with outpatient follow-up with her PCP and dentist. Disposition decision was made weighing the risks and benefits of hospitalization versus outpatient treatment, the risk for further decompensation, and the patient's wishes. The patient was stable and requested discharge. Prior to discharge, my usual and customary return precautions were reviewed with the patient - this included follow-up instructions and reason to return to the emergency department if condition worsens, does not improve as expected, or other new concerns arise. Lab Data Lab results reviewed: Yes I reviewed the patient's lab results. Labs: Laboratory Tests Range/Units 03/27/24 03/27/24 03/27/24 12:30 13:15 15:40 WBC (4.4-10.8) 10^3/uL 7.56 RBC (3.93-5.22) 10^6/uL 4.56 Hgb (11.2-15.7) g/dL 12.5 Hct (36.0-46.0) % 38.1 MCV (80-95) fL 84 MCH (27.0-33.0) pg 27.4 MCHC (32.0-36.0) % 32.8 RDW (11.7-14.6) % 15.4 H Plt Count (130-400) 10^3/uL 372 MPV (8.0-11.0) fL 9.6 Immature Gran % % 0.7 Neutrophils % % 66.5 Lymphocytes % % 25.1 Monocytes % % 6.0 Eosinophils % % 0.9 Basophils % % 0.8 Nucleated RBC % (0.0-0.3) % 0.0 Absolute Neutrophils (1.2-6.7) 10^3/uL 5.03 Absolute Lymphocytes (1.2-3.4) 10^3/uL 1.90 Absolute Monocytes (0.1-0.8) 10^3/uL 0.45 Absolute Eosinophils (0.0-0.7) 10^3/uL 0.07 Absolute Basophils (0.0-0.2) 10^3/uL 0.06 D-Dimer (<500) ng/mlFEU 291 Sodium (136-145) mmol/L 144 Potassium (3.5-5.1) mmol/L 3.8 Chloride (98-107) mmol/L 106 Carbon Dioxide (21.0-32.0) mmol/L 28.9 Anion Gap (3-11) mmol/L 9.1 BUN (7-18) mg/dL 9 Creatinine (0.55-1.02) mg/dL 0.8 Est GFR (CKD-EPI 2020) (mL/min/1.73m2) 100.33 Glucose (74-106) mg/dL 94 Calcium (8.5-10.1) mg/dL 9.0 Total Bilirubin (0.2-1.0) mg/dL 0.2 AST (15-37) U/L 19 ALT (14-59) U/L 36 Alkaline Phosphatase (46-116) U/L 93 Troponin I (< or =60) ng/L < 50 < 50 Total Protein (6.4-8.2) g/dL 7.9 Albumin (3.4-5.0) g/dL 4.1 Quality:SDOH Health Related Social Needs: No Data to Display PFSH All Active Problems (Updated 03/27/24 @ 15:26 by Mark Marcano MD) Nausea (Acute) Chest tightness (Acute) Pain, dental (Acute) Pre-syncope (Acute) Dizziness (Acute) Acne (Acute) Migraine (Chronic) Globus sensation (Acute) Mixed anxiety depressive disorder (Acute) Fatigue (Acute) Vertigo (Acute) Tobacco abuse (Acute) Abdominal pain, right upper quadrant (Acute) Hydronephrosis (Acute) Warts (Acute) S/P laparoscopic appendectomy (Acute) Hives (Acute) Medical History (Updated 03/27/24 @ 15:26 by Mark Marcano MD) Palpitations Hypokalemia GERD (gastroesophageal reflux disease) Surgical History EGD - MAC (09/02/15) DR.TERRY VICENTE Tooth extraction WISDOM TEETH Family History Mother Stomach cancer H/O oophorectomy H/O thyroidectomy Father Myocardial infarction Seizure disorder Grandfather Diabetes Grandmother Diabetes Stroke Maternal Aunt Seizure disorder Grandfather CHF (congestive heart failure) Gynecologic cancer COPD (chronic obstructive pulmonary disease) Grandmother Diabetes Essential hypertension Personal history of malignant neoplasm Sister Petit mal seizure status X 1 Asthma X 1 Brother Asthma X 1 Social History Smoking/Tobacco Use Status: Current every day Tobacco Type: cigarettes Smoking risk assessment performed?: Yes Alcohol Intake: never Drug use: Never Substance use type: does not use Housing: house Do you feel safe at home: Yes Do you feel safe in your relationship?: Yes
[2024-03-27 15:48] VITALS: BP 156/80; PULSE 98; TEMP 36.7; O2SAT 100
[2024-03-27 15:52] VITALS: BP 156/80; PULSE 98; RESP 16; TEMP 36.7; O2SAT 100
[2024-03-27 16:07] LABS: Troponin I < 50 ng/L (< or =60)
== END 2024-03-27 15:53 | disposition home or self-care (01) ==
PROVIDERS: Emergency Provider Student in an Organized Health Care Education/Training Program; PCP Physician Assistant
DX: R55 Syncope and collapse (principal); K08.89 Other specified disorders of teeth and supporting structures; R07.9 Chest pain, unspecified; R11.0 Nausea; F17.210 Nicotine dependence, cigarettes, uncomplicated
CPT/HCPCS: 36415; 80053; 93005; 99285; 71045; 84484; 85025; 85379; 93010; 99284

== ENCOUNTER 2025-04-01 18:34 | Outpatient (REF) | payer OTHER, SELFPAY ==
[2025-04-01 20:23] LABS: Abs Immature Grans 0.03 10^3/uL (0.0-0.06); Absolute Basophil Count 0.06 10^3/uL (0.0-0.2); Absolute Eosinophil Count 0.07 10^3/uL (0.0-0.7); Absolute Lymphocyte Count 1.96 10^3/uL (1.2-3.4); Absolute Monocyte Count 0.49 10^3/uL (0.1-0.8); Absolute Neutrophil Count 6.09 10^3/uL (1.2-6.7); Basophils % 0.7 %; Eosinophils % 0.8 %; HCT 33.9 % (36.0-46.0); HGB 10.9 g/dL (11.2-15.7); Immature Grans % 0.3 %; Lymphocytes % 22.5 %; MCH 23.3 pg (27.0-33.0); MCHC 32.2 % (32.0-36.0); MCV 72 fL (80-95); MPV 10.4 fL (8.0-11.0); Monocytes % 5.6 %; Neutrophils % 70.1 %; Platelet Count 426 10^3/uL (130-400); RBC 4.68 10^6/uL (3.93-5.22); RDW 16.2 % (11.7-14.6); RDW-SD 41.9 fL
[2025-04-01 20:40] LABS: Diff Comment RBC Morph Reviewed; Microcytosis 2+
[2025-04-01 20:45] LABS: Hemoglobin A1C 5.8 % (<5.7)
[2025-04-01 20:54] LABS: Iron 47 ug/dL (50-170); Total Iron Binding Capacity 432 ug/dL (250-450); Transferrin Sat 11 % (15-50)
[2025-04-01 21:11] LABS: ALT 51 U/L (14-59); AST 32 U/L (15-37); Albumin 3.7 g/dL (3.4-5.0); Alkaline Phosphatase 124 U/L (46-116); Anion Gap 11.4 mmol/L (3-11); BUN 9 mg/dL (7-18); Bilirubin, Total 0.3 mg/dL (0.2-1.0); CO2 27.6 mmol/L (21.0-32.0); CREATININE 0.8 mg/dL (0.55-1.02); Calcium 8.2 mg/dL (8.5-10.1); Chloride 103 mmol/L (98-107); Estimated GFR 99.71 (mL/min/1.73m2); Ferritin 10 ng/mL (8-252); Glucose 93 mg/dL (74-106); Potassium 3.4 mmol/L (3.5-5.1); Sodium 142 mmol/L (136-145); TSH (W/Ref FT4) 0.73 uIU/mL (0.36-3.74); Total Protein 8.1 g/dL (6.4-8.2); Vitamin B12 565 pg/mL (193-986); Vitamin D 25 Total 28 ng/mL (30-100)
[2025-04-01 21:32] LABS: Magnesium 0.7 mg/dL (1.8-2.4)
[2025-04-02 19:11] LABS: HIV-1/2 Ag & Ab Screen Negative (Negative)
[2025-04-02 19:15] LABS: Hepatitis C Ab w Rflx HCV PCR Negative (Negative)
[2025-04-06 12:34] LABS: Fentanyl Scr w/Rfx Confirm Negative ng/mL (<1)
[2025-04-08 17:32] LABS: 2-OH-Ethyl-Flurazepam Negative ng/mL (Cutoff: 10); 7-NH-Clonazepam Negative ng/mL (Cutoff: 10); 7-NH-Flunitrazepam Negative ng/mL (Cutoff: 10); Alpha OH-Alprazolam Negative ng/mL (Cutoff: 10); Alpha-OH Midazolam Negative ng/mL (Cutoff: 10); Alpha-OH-Triazolam Negative ng/mL (Cutoff: 10); Alprazolam Negative ng/mL (Cutoff: 10); Chlordiazepoxide Negative ng/mL (Cutoff: 10); Clobazam Negative ng/mL (Cutoff: 10); Clonazepam Negative ng/mL (Cutoff: 10); Diazepam Negative ng/mL (Cutoff: 10); Flurazepam Negative ng/mL (Cutoff: 10); Midazolam Negative ng/mL (Cutoff: 10); N-Desmethylclobazam Negative ng/mL (Cutoff: 10); Prazepam Negative ng/mL (Cutoff: 10); Temazepam Negative ng/mL (Cutoff: 10); Triazolam Negative ng/mL (Cutoff: 10); Zolpidem Carboxylic acid Negative ng/mL (Cutoff: 10)
== END 2025-04-01 18:35 | disposition home or self-care (01) ==
LOC: NCHCN 18:34
PROVIDERS: PCP Physician Assistant; Visit Provider Physician Assistant
DX: F41.9 Anxiety disorder, unspecified (principal); Z51.89 Encounter for other specified aftercare; E83.42 Hypomagnesemia; E87.6 Hypokalemia; N92.0 Excessive and frequent menstruation with regular cycle; E55.9 Vitamin D deficiency, unspecified; R42 Dizziness and giddiness; Z11.59 Encounter for screening for other viral diseases; Z11.4 Encounter for screening for human immunodeficiency virus [HIV]
CPT/HCPCS: 80053; 80307; 82306; 86803; 87389; 80346; 82607; 82728; 82746; 83036; 83540; 83550; 83735; 84443; 85025

== ENCOUNTER 2025-04-22 01:59 | Outpatient (CLI) | payer OTHER, SELFPAY ==
[2025-04-22 13:32] LABS: Creatinine,Urine 20.71 mg/dL
[2025-04-22 13:50] LABS: CREATININE 0.9 mg/dL (0.55-1.02); Estimated GFR 86.57 (mL/min/1.73m2); Magnesium 1.2 mg/dL (1.8-2.4)
[2025-04-23 09:02] LABS: Magnesium Random Urine <2.0 mg/dL (See Note)
[2025-04-26 11:57] LABS: IgA 299 mg/dL (85-499); Interpretation (See Note); Tissue Transglutaminase IgA <4.0 CU (<20.0)
== END 2025-04-22 02:00 | disposition home or self-care (01) ==
PROVIDERS: PCP Physician Assistant; Visit Provider Physician Assistant
DX: E83.42 Hypomagnesemia (principal); D50.9 Iron deficiency anemia, unspecified
CPT/HCPCS: 36415; 82784; 83516; 83735; 82565